=== PATIENT | male | born 1950 | race Caucasian/White ===

== ENCOUNTER 2016-05-31 14:55 | Inpatient (IN) | payer OTHER ==
[2016-05-31 15:27] VITALS: BMI 31.0
[2016-05-31 15:47] LABS: BASOPHIL 0.7 % (0-2.0); EOSINOPHIL 2.3 % (0-4.5); MCHC 30.1 g/dl (32.0-35.9); MEAN CELL VOLUME 65.5 fl (80-96); MEAN PLT VOLUME 8.8 fl (7.5-11.1); NEUTROPHILS 60.8 % (42.8-82.8); PLATELET COUNT 149 K/MM3 (134-434); RDW 21.7 % (11.9-15.9); WHITE BLOOD COUNT 3.3 K/mm3 (4.0-10.0)
--- NOTE | 2016-05-31 15:50 | PDOC ---
History of Present Illness <TiannaAmy - Last Filed: 05/31/16 17:11> <Kavon Kincaid - Last Filed: 06/01/16 08:34> - General Chief Complaint: Chest Pain Stated Complaint: CHEST PAIN Time Seen by Provider: 05/31/16 15:29 - History of Present Illness Initial Comments: 05/31/16 16:48 The patient is a 66 year old male, with a significant past medical history of HIV, hypertension, GI Bleed and duodenitis(10/04/15), who presents to the emergency department with 1 year of intermittent chest pain and lightheadedness with new onset of melena for 1 week. The patient reports his chest pain and lightheadedness is localized to his midsternal region, worse when walking and eating and alleviated when lying still. Pt states he had an valve replacement, but still has the same sypmtoms. The patient also complains of associated bilateral arm pain with his chest pain. The patient states his stool has been very dark, close to black, for about the past week. He denies shortness of breath, headache. He denies fever, chills, nausea, vomit , diarrhea and constipation. He denies dysuria, frequency, urgency and hematuria. Allergies: NKDA Past surgical history: aortic valve replacement (2016) PCP - Dr. Fernández Brick Tender - Dr. Walker (Amy Wynn) Past History <Amy Wynn - Last Filed: 05/31/16 17:11> - Past Medical History Anemia: No Asthma: No Cancer: No Cardiac Disorders: Yes (valve replacement) CVA: No COPD: No CHF: No (Need clariification) Dementia: No Diabetes: No GI Disorders: Yes (tarry stool, + Deuodinitis and one nonbleeding angioectas) Disorders: No HTN: Yes (Pt denies HTN however receiving HTN meds) Hypercholesterolemia: No Liver Disease: No Psychiatric Problems: Yes (ANXIETY DEPRESSION) Seizures: No Thyroid Disease: No - Surgical History Abdominal Surgery: No Appendectomy: No Cardiac Surgery: Yes ([facility] Cardothoracic Surgery - Dr. Reese Garcia MD Aortic Sten) Cholecystectomy: No Lung Surgery: No - Psycho/Social/Smoking Cessation Hx Suicidal Ideation: No Smoking History: Never smoked <Kavon Kincaid - Last Filed: 06/01/16 08:34> - Past Medical History Allergies/Adverse Reactions: Allergies Allergy/AdvReac Type Severity Reaction Status Date / Time No Known Allergies Allergy Verified 05/31/16 15:30 Home Medications: Ambulatory Orders Darunavir/Cobicistat [Prezcobix 800 mg-150 mg Tablet] 1 each PO DAILY #30 tablet 05/18/16 Dolutegravir Sodium [Tivicay] 50 mg PO DAILY #30 tablet 05/18/16 Metoprolol Succinate [Toprol Xl -] 0 mg PO HS 05/31/16 Cardiac Specific PMH - Complaint Specific PMHX Pacemaker: No <Kavon Kincaid - Last Filed: 06/01/16 08:34> Review of Systems - Review of Systems Able to Perform ROS?: Yes <Amy Wynn - Last Filed: 05/31/16 17:11> <Kavon Kincaid - Last Filed: 06/01/16 08:34> - Review of Systems Comments:: 05/31/16 16:48 CONSTITUTIONAL: No reported: Fever, Chills, Diaphoresis, Generalized Weakness, Malaise, Loss of Appetite HEENT: No reported: Rhinorrhea, Nasal Congestion, Throat Pain, Throat Swelling, Difficulty Swallowing, Mouth Swelling, Ear Pain, Eye Pain, Visual Changes CARDIOVASCULAR: (+) Chest Pain, Lightheadedness,No reported:Syncope, Palpitations, Irregular Heart Rate, Peripheral Edema RESPIRATORY: No reported: Cough, Shortness of Breath, SOB with Exertion, Orthopnea, Wheezing , Stridor, Hemoptysis GASTROINTESTINAL: + melena No reported: Abdominal pain, Abdominal Distension, Nausea, Vomiting, Diarrhea, Constipation, Hematochezia GENITOURINARY: No reported: Dysuria, Frequency, Urgency, Hesitancy, Flank Pain, Genital Pain MUSCULOSKELETAL: No reported: Myalgia, Arthralgia, Joint Swelling, Back pain, Neck Pain SKIN: No reported: Rash, Itching, Pallor HEMEATOLOGIC/IMMUNOLOGIC: No reported: Easy Bleeding, Easy Bruising, Lymphadenopathy, Frequent infections ENDOCRINE: No reported: Unexplained Weight Gain, Unexplained Weight Loss, Heat Intolerance , Cold Intolerance NEUROLOGIC: No reported: Headache, Focal Weakness, Paresthesias, Vertigo, Lightheadedness, Unsteady Gait, Seizure, Mental Status Changes, Incontinence PSYCHIATRIC: No reported: Anxiety, Depression (Amy Wynn) *Physical Exam <SheylaAmy gusman - Last Filed: 05/31/16 17:11> <Kavon Kincaid - Last Filed: 06/01/16 08:34> - Vital Signs Last Vital Signs Temp Pulse Resp BP Pulse Ox 98.7 F 68 18 118/63 100 06/01/16 07:11 06/01/16 07:11 06/01/16 07:19 06/01/16 07:11 06/01/16 07:19 - Physical Exam Comments: 05/31/16 16:49 GENERAL: The patient is awake, alert, and fully oriented, Nontoxic - in no acute distress. HEAD: Normocephalic, atraumatic. EYES: extraocular movements intact, sclera anicteric, conjunctiva clear. ENT: Normal voice, Moist mucous membranes. NECK: Normal range of motion, supple LUNGS: Breath sounds equal, clear to auscultation bilaterally. No wheezes, no rhonchi, no rales. HEART: Regular rate and rhythm, without murmur, rub or gallop. ABDOMEN: Soft, nontender, normoactive bowel sounds. No guarding, no rebound.No CVA tenderness RECTAL: minimal browinish stool in vault (did not appear melantoic) EXTREMITIES: Normal range of motion, no edema. No clubbing or cyanosis. No cords, erythema, or tenderness. NEUROLOGICAL: No facial assymetry, Normal speech, PSYCH: Normal mood, normal affect. SKIN: Warm, Dry, normal turgor, (Amy Wynn) Heart Score/ECG Review <SheylaAmy gusman - Last Filed: 05/31/16 17:11> <Kavon Kincaid - Last Filed: 06/01/16 08:34> - ECG Impressions Comment:: 05/31/16 16:18 Twelve-lead EKG was performed and reviewed by me. There is normal sinus rhythm with a normal rate. Rate of 81 LVH with repolarization abnormality When compared with EKG dated 04/05/2016, the flipped T waves in the lateral leads have improved (Kavon Kincaid) ED Treatment Course - LABORATORY CBC & Chemistry Diagram: 05/31/16 15:31 05/31/16 15:31 <Amy Wynn - Last Filed: 05/31/16 17:11> - LABORATORY CBC & Chemistry Diagram: 06/01/16 06:10 06/01/16 06:10 <Kvaon Kincaid - Last Filed: 06/01/16 08:34> - ADDITIONAL ORDERS Additional order review: Laboratory Results 05/31/16 05/31/16 16:10 16:00 Lipase 101 Blood Type O POSITIVE Antibody Screen Negative Crossmatch See Detail 05/31/16 15:31 RBC 3.30 L D MCV 65.5 L MCHC 30.1 L RDW 21.7 H MPV 8.8 D Neutrophils % 60.8 Lymphocytes % 19.3 Monocytes % 16.9 H Eosinophils % 2.3 Basophils % 0.7 - RADIOLOGY Radiology Studies Ordered: Category Date Time Status CHEST X-RAY PORTABLE* [RAD] Stat Radiology 05/31/16 15:31 Completed - Medications Given in the ED: ED Medications Discontinued Medications Generic Name Dose Route Start Last Admin Trade Name Freq PRN Reason Stop Dose Admin Pantoprazole Sodium 80 mg/ 100 mls @ 200 mls/hr 05/31/16 16:11 05/31/16 17:02 Sodium Chloride IVPB 05/31/16 16:40 200 mls/hr ONCE ONE Administration Medical Decision Making <Amy Wynn - Last Filed: 05/31/16 17:11> <Kavon Kincaid - Last Filed: 06/01/16 08:34> - Medical Decision Making 05/31/16 16:28 Dr. Walker was paged requesting a call back for doctor to doctor consult at 16:12 Dr. Fernández was paged at 17:00 and he immediately returned the call and the patient's case was discussed. Dr. Walker returned the call and the patient's case was discussed at 17:08. (Amy Wynn) 05/31/16 16:08 66y M hx of aortic valve replacement, duodinitis/gastritis, sent to the ED for evaluation of chest pain The pt states that he has had chest pain/ lightheadedness for hte past year, worse when he walks around an dwhen he eats but notes that the past week he has hbeen having black stool. pt notes his cp is unchanged from baseline. ?acs, vs GIB possible anemia causing his sypmtoms (would not explain chronicity of his cp/ dizziness) will r/o DC with ekg/troponins pt currently not in any pain, stool is browinish, non melenatic stool sbrown in color - will dfer asa until we know his stool exam when compared with prior ekg frm the clinic (performed at 13:[address]ressions in V3-4-5, pt did state he had cp when they did that ekg) that have resolved/improved. flipped Ts in I, avl remain unchanged. pt has no chest pain ( none since he was in ht eclinic) will notify dr. walker 05/31/16 16:15 pts HBG shows anemia to 6 will transfuse ith 2L PRBC will start pt on protonix A portion of this note was documented by scribe services under my direction. I have reviewed the details of the note, within reason, and agree with the documentation with the following case summary and management plan written by me 05/31/16 16:42 pts Trop is .17 in light of his complaint of melena and new anemia will discuss with dr. Walker prior to heparinizing the patient or giving ASA will also consult GI will admit for further management 05/31/16 17:03 chest pain free currently in no distress 05/31/16 17:16 05/31/16 17:[address] walker - states pt had hx of ekg changes, an din 2014 - had CABG and ao valve replacement with bioprosteic valve, but without improvement of sypmtoms. requests repeta trops, and echo, agree with deferring asa/heparin in light of reported menela - consider primary ACS vs. 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 05/31/16 17:[address] kong agree with transfusion and tprotonix gtt. (Kavon Kincaid) *DC/Admit/Observation/Transfer <Amy Wynn - Last Filed: 05/31/16 17:11> - Discharge Dispostion Admit: Yes <Kavon Kincaid - Last Filed: 06/01/16 08:34> Diagnosis at time of Disposition: HIV (human immunodeficiency virus infection) Chest pain Qualifiers: Chest pain type: unspecified Qualified Code(s): R07.9 - Chest pain, unspecified GIB (gastrointestinal bleeding) Qualifiers: GI bleed type/associated pathology: melena Qualified Code(s): K92.1 - Melena - Attestations Scribe Attestion: 05/31/16 16:29 Documentation prepared by Amy Wynn, acting as emergency medical service manager for Kavon Kincaid MD, MD (Amy Wynn)
[2016-05-31 15:55] LABS: MCH 19.7 pg (25.7-33.7)
[2016-05-31 16:08] LABS: INR 1.05 (0.82-1.09); PROTHROMBIN TIME (PATIENT) 11.6 SEC (9.98-11.88)
[2016-05-31] MEDS ORDERED: PANTOPRAZOLE SODIUM 80 MG in SODIUM CHLORIDE 100 ML IVPB ONE (16:11)
[2016-05-31 16:22] LABS: ALBUMIN 3.2 g/dl (3.4-5.0); ANION GAP 7 (8-16); CALCIUM 8.2 mg/dL (8.5-10.1); CO2 26 mmol/L (21-32); CREATININE 0.8 mg/dL (0.7-1.3); GLUCOSE,RANDOM 106 mg/dL (74-106); SGOT/AST 39 U/L (15-37); SGPT/ALT 65 U/L (12-78)
[2016-05-31 16:26] LABS: ALK PHOS 92 U/L (45-117); BILIRUBIN,TOTAL 0.4 mg/dL (0.2-1.0); TOT PROT 6.3 g/dl (6.4-8.2); TROPONIN I 0.17 ng/ml (0.00-0.05)
[2016-05-31] MEDS ORDERED: PANTOPRAZOLE SODIUM 40 MG VIAL ONE ×2 (17:03→17:40)
--- NOTE | 2016-05-31 17:28 | HP ---
CHIEF COMPLAINT: PCP: Dr. Fernández HISTORY OF PRESENT ILLNESS: The patient is a 66 year old male with a history of HIV/AIDS (last CD4 58), bioprosthetic aortic valve replacement and CABG (2014), HTN, duodenitis and GIB (10/04/15), who presents to the ED today complaining of one week of "black" stools. He is feeling lightheaded when standing. He also notes intermittent chest pain with and dyspnea on exertion for one year, worsening today. He reports having an endoscopy one year ago at [facility] without significant findings. He denies EtOH and NSAID use. ER course was notable for: (1) EKG: NSR, rate of 81, LVH with repolarization abnormality. When compared with EKG dated 04/05/2016, TWI in the lateral leads have improved. (2) H/H: 6.5/21.6 (3) Guaiac positive (4) Troponin elevated at 0.17 Recent Travel: None Social History: Lives alone, not employed, originally from [facility]. Smoking: Quit 10 yrs ago Alcohol: None Drugs: None Family History: Non-contributory to this admission Allergies No Known Allergies Allergy (Verified 05/31/16 15:30) HOME MEDICATIONS: Home Medications Medication Instructions Recorded Darunavir/Cobicistat [Prezcobix 1 each PO DAILY #30 tablet 05/18/16 800 mg-150 mg Tablet] Dolutegravir Sodium [Tivicay] 50 mg PO DAILY #30 tablet 05/18/16 Metoprolol Succinate [Toprol Xl -] 0 mg PO HS 05/31/16 REVIEW OF SYSTEMS CONSTITUTIONAL: Generalized weakness Absent: fever, chills, diaphoresis, weight change HEENT: Absent: rhinorrhea, nasal congestion, throat pain, throat swelling, difficulty swallowing, mouth swelling, ear pain, eye pain, visual changes CARDIOVASCULAR: Intermittent chest pain (currently has some mild pain), dyspnea on exertion, lightheadedness Absent: calf pain or swelling RESPIRATORY: Cough productive of white sputum Absent: orthopnea, wheezing, stridor, hemoptysis GASTROINTESTINAL: "Black" stools for one week Absent: abdominal pain, abdominal distension, nausea, vomiting GENITOURINARY: Absent: dysuria, frequency, urgency, hesitancy, hematuria, flank pain, genital pain MUSCULOSKELETAL: Absent: myalgia, arthralgia, joint swelling, back pain, neck pain SKIN: Absent: rash, itching, pallor HEMATOLOGIC/IMMUNOLOGIC: Absent: easy bleeding, easy bruising, lymphadenopathy, frequent infections ENDOCRINE: Absent: unexplained weight gain, unexplained weight loss, heat intolerance, cold intolerance NEUROLOGIC: Absent: headache, focal weakness or paresthesias, dizziness, unsteady gait, seizure, mental status changes, bladder or bowel incontinence PSYCHIATRIC: Absent: anxiety, depression, suicidal or homicidal ideation, hallucinations. PHYSICAL EXAMINATION Vital Signs - 24 hr 05/31/16 05/31/16 15:22 15:50 Temperature 98.1 F Pulse Rate 84 Respiratory 16 Rate Blood Pressure 126/64 O2 Sat by Pulse 99 98 Oximetry (%) GENERAL: Awake, alert, and fully oriented, in no acute distress. HEAD: Normal with no signs of trauma. EYES: Pupils equal, round and reactive to light, extraocular movements intact, sclera anicteric, conjunctivae pale. No lid lag. EARS, NOSE, THROAT: Ears normal, nares patent, oropharynx clear without exudates. Moist mucous membranes. NECK: Normal range of motion, supple without lymphadenopathy, JVD, or masses. LUNGS: Breath sounds equal, clear to auscultation bilaterally. No wheezes, and no crackles. No accessory muscle use. HEART: Regular rate and rhythm, S1/S2, 4/6 systolic murmur, midline sternotomy scar, no rub or gallop. ABDOMEN: Soft, nontender, not distended, normoactive bowel sounds, no guarding, no rebound, no masses. No hepatomegaly or splenomegaly. MUSCULOSKELETAL: Normal range of motion at all joints. No bony deformities or tenderness. No CVA tenderness. UPPER EXTREMITIES: 2+ pulses, warm, well-perfused. No cyanosis. No clubbing. No peripheral edema. LOWER EXTREMITIES: 2+ pulses, warm, well-perfused. No calf tenderness. No peripheral edema. NEUROLOGICAL: Cranial nerves II-XII intact. Normal speech. Normal gait. PSYCHIATRIC: Cooperative. Good eye contact. Appropriate mood and affect. SKIN: Warm, dry, normal turgor, no rashes or lesions noted, normal capillary refill. Laboratory Results - last 24 hr 05/31/16 05/31/16 05/31/16 15:31 15:31 15:31 WBC 3.3 L RBC 3.30 L D Hgb 6.5 L* D Hct 21.6 L D MCV 65.5 L MCHC 30.1 L RDW 21.7 H Plt Count 149 D MPV 8.8 D Neutrophils % 60.8 Lymphocytes % 19.3 Monocytes % 16.9 H Eosinophils % 2.3 Basophils % 0.7 INR 1.05 Sodium 136 Potassium 4.1 Chloride 103 Carbon Dioxide 26 Anion Gap 7 L BUN 18 Creatinine 0.8 Creat Clearance w eGFR > 60 Random Glucose 106 Calcium 8.2 L Total Bilirubin 0.4 AST 39 H D ALT 65 D Alkaline Phosphatase 92 D Creatine Kinase 93 Troponin I 0.17 H Total Protein 6.3 L Albumin 3.2 L Stool Occult Blood Crossmatch 05/31/16 05/31/16 16:00 16:10 WBC RBC Hgb Hct MCV MCHC RDW Plt Count MPV Neutrophils % Lymphocytes % Monocytes % Eosinophils % Basophils % INR Sodium Potassium Chloride Carbon Dioxide Anion Gap BUN Creatinine Creat Clearance w eGFR Random Glucose Calcium Total Bilirubin AST ALT Alkaline Phosphatase Creatine Kinase Troponin I Total Protein Albumin Stool Occult Blood Positive Crossmatch See Detail ASSESSMENT/PLAN: 66 year old male admitted with GIB and elevated troponins. Problem List - Problem (1) Chest pain Assessment/Plan: -Monitor on telemetry -Serial troponins to rule out IA -Repeat EKG -Echocardiogram -Holding ASA for now given GIB -Cardiology following Code(s): R07.9 - CHEST PAIN, UNSPECIFIED Qualifiers: Chest pain type: unspecified Qualified Code(s): R07.9 - Chest pain, unspecified (2) GIB (gastrointestinal bleeding) Assessment/Plan: -H/H stable after 3hrs prior to transfusion -Transfuse 2 units PRBC now; would transfuse to goal Hgb 10 given active chest pain, elevated troponin -Protonix gtt -NPO -GI consultation requested Code(s): K92.2 - GASTROINTESTINAL HEMORRHAGE, UNSPECIFIED Qualifiers: GI bleed type/associated pathology: melena Qualified Code(s): K92.1 - Melena (3) HTN (hypertension) Assessment/Plan: -BP at goal -Hold Metoprolol for now Code(s): I10 - ESSENTIAL (PRIMARY) HYPERTENSION (4) AIDS Assessment/Plan: -Hold ARVs for now; resume when taking PO Code(s): B20 - HUMAN IMMUNODEFICIENCY VIRUS [HIV] DISEASE (5) DVT prophylaxis Assessment/Plan: -SCDs -Early ambulation Code(s): [id number] - Visit type - Emergency Visit Emergency Visit: Yes ED Registration Date: 05/31/16 Care time: The patient presented to the Emergency Department on the above date and was hospitalized for further evaluation of their emergent condition. - New Patient This patient is new to me today: Yes Date on this admission: 05/31/16 - Critical Care Critical Care patient: Yes Total Critical Care Time (in minutes): 35 Critical Care Statement: The care of this patient involved high complexity decision making to prevent further life threatening deterioration of the patient 's condition and/or to evalute & treat vital organ system(s) failure or risk of failure.
[2016-05-31 17:35] LABS: ANISOCYTOSIS 2+; HYPOCHROMIA 3+; MICROCYTOSIS 2+; OVALOCYTES 1+; POLYCHROMASIA 1+
--- NOTE | 2016-05-31 17:41 | CON.CARD ---
Consult Consult Specialty:: cardiology Reason for Consultation:: chest pain; hx CABG - History of Present Illness History of Present Illness: The patient is a 66 year old male, with a significant past medical history of HIV, s/p bioprosthetic aortic valve and CABG (05/2015 at [facility]), hypertension, GI Bleed and duodenitis(10/04/15), anxiety/depression, who presents to the emergency department with 1 year of intermittent chest pain and lightheadedness with new onset of melena for 1 week. The patient reports his chest pain (needle-like, left sided, at rest, lasting a few seconds) and lightheadedness is localized to his midsternal region, worse when walking and eating and alleviated when lying still. Pt states he had a valve replacement, but still has the same symptoms. The patient also complains of associated bilateral arm pain with his chest pain. The patient states his stool has been very dark, close to black, for about the past week. Pt is anxious that, since the cardiac operation, he has felt something "moving in the central chest wall (not painful). - History Source History Provided By: Patient, Medical Record Limitations to Obtaining History: No Limitations - Past Medical History Cardio/Vascular: Yes: CAD, CHF, HTN, Hyperlipdemia, Other (aortic vavle replacement) Infectious Disease: Yes: HIV - Past Surgical History Past Surgical History: Yes: CABG, Valve Replacement (aortic (bioprosthetic)) - Smoking History Smoking history: Never smoked Home Medications - Allergies Allergies/Adverse Reactions: Allergies Allergy/AdvReac Type Severity Reaction Status Date / Time No Known Allergies Allergy Verified 05/31/16 15:30 - Home Medications Home Medications: Ambulatory Orders Darunavir/Cobicistat [Prezcobix 800 mg-150 mg Tablet] 1 each PO DAILY #30 tablet 05/18/16 Dolutegravir Sodium [Tivicay] 50 mg PO DAILY #30 tablet 05/18/16 Metoprolol Succinate [Toprol Xl -] 0 mg PO HS 05/31/16 - Risk Factors Known Risk Factors: Yes: Age, Gender, Hypercholesterolemia, Hypertension, Other (s/p CABG; s/p AoVR; HIV) Vital Signs: Vital Signs Temperature 98.1 F 05/31/16 15:22 Pulse Rate 84 05/31/16 15:22 Respiratory Rate 16 05/31/16 15:22 Blood Pressure 126/64 05/31/16 15:22 O2 Sat by Pulse Oximetry (%) 98 05/31/16 15:50 Constitutional: Yes: Anxious, Moderate Distress Eyes: Yes: WNL HENT: Yes: WNL Neck: Yes: WNL Respiratory: Yes: Regular Gastrointestinal: Yes: Soft. No: Tenderness Cardiovascular: Yes: Regular Rate and Rhythm JVD: No Carotid Bruit: No Musculoskeletal: Yes: Other (slight movemtn felt (nontender) when right parasternal area is pressed) Extremities: Yes: Cool Edema: No Peripheral Pulses WNL: Yes Integumentary: Yes: WNL Neurological: Yes: Alert, Oriented Psychiatric: Yes: Alert, Oriented, Other - Other Data Labs, Other Data: CBC, BMP 05/31/16 15:31 05/31/16 15:31 INR, PTT INR 1.05 (0.82-1.09) 05/31/16 15:31 Troponin, BNP 05/31/16 15:31 Troponin I 0.17 H Troponin, BNP 05/31/16 15:31 Troponin I 0.17 H Abnormal Lab Results 05/31/16 05/31/16 05/31/16 15:31 15:31 16:00 WBC 3.3 L RBC 3.30 L D Hgb 6.5 L* D Hct 21.6 L D MCV 65.5 L MCHC 30.1 L RDW 21.7 H Monocytes % 16.9 H Anion Gap 7 L Calcium 8.2 L AST 39 H D Troponin I 0.17 H Total Protein 6.3 L Albumin 3.2 L Crossmatch See Detail Prior Cardiac Procedures: CABG, Valve Surgery Imaging - Results Chest X-ray: Pending EKG: Image Reviewed (NSR; lateral wall ST-T depression) Problem List - Problems (1) Chest pain Assessment/Plan: TNI 0.17 (likely demand ischemia from severe anemia); CK WNL. EKG: NSR; ?new lateral ST-T changes. Rec: Unable to give antiplatelets or anticoagulants presently due to severe anemia and evidence of melena. Statin; f/u lipids. TSH Repeat TNI and EKG within two hours of the last ones taken. Hydration; f/u anemia/GI workup. Problematic giving beta blockers or ACEI due to severe anemia. ECHO for LVEF, wall motion, valve status (particularly replaced aortic valve). obtain records of prior cardiac workup. F/u chest wall movement (CXR; consider CT chest). Code(s): R07.9 - CHEST PAIN, UNSPECIFIED Qualifiers: Chest pain type: unspecified Qualified Code(s): R07.9 - Chest pain, unspecified (2) FH: CABG (coronary artery bypass surgery) Code(s): Z84.89 - FAMILY HISTORY OF OTHER SPECIFIED CONDITIONS (3) GIB (gastrointestinal bleeding) Assessment/Plan: f/u with GI regarding anemia, ?GI bleed, hx gastric disease Code(s): K92.2 - GASTROINTESTINAL HEMORRHAGE, UNSPECIFIED Qualifiers: GI bleed type/associated pathology: melena Qualified Code(s): K92.1 - Melena (4) Anemia Code(s): D64.9 - ANEMIA, UNSPECIFIED (5) HIV (human immunodeficiency virus infection) Assessment/Plan: f/u with Dr. Fernández. ECHO for LVEF; chamber sizes, vavle status. Code(s): Z21 - ASYMPTOMATIC HUMAN IMMUNODEFICIENCY VIRUS INFECTION STATUS (6) HTN (hypertension) Code(s): I10 - ESSENTIAL (PRIMARY) HYPERTENSION (7) Aortic valve replaced Code(s): Z95.2 - PRESENCE OF PROSTHETIC HEART VALVE
[2016-05-31] MEDS: PANTOPRAZOLE SODIUM 80 MG in SODIUM CHLORIDE 100 ML IVPB SCH (17:54)
[2016-05-31 18:33] LABS: BASOPHIL 0.6 % (0-2.0); EOSINOPHIL 2.9 % (0-4.5); MCHC 29.7 g/dl (32.0-35.9); MEAN CELL VOLUME 66.2 fl (80-96); MEAN PLT VOLUME 9.1 fl (7.5-11.1); PLATELET COUNT 141 K/MM3 (134-434); RDW 22.1 % (11.9-15.9); WHITE BLOOD COUNT 2.9 K/mm3 (4.0-10.0)
[2016-05-31 18:36] LABS: MCH 19.7 pg (25.7-33.7)
[2016-05-31 19:01] LABS: TROPONIN I 0.19 ng/ml (0.00-0.05)
--- NOTE | 2016-05-31 20:13 | CON.GI ---
Consult Consult Specialty:: GI Referred by:: Hospitalist Reason for Consultation:: anemia/GIB - History of Present Illness Chief Complaint: Symptomatic anemia and ongoing black stool History of Present Illness: 66 M with h/o HIV with low CD4, CABG and AVR 1 year ago at [place], HTN, GIB and duodenitis, admitted with 5 days of dark stool and a Hgb of 6.5. Patient states he has had this problem for a long time and has had an extensive work-up including 2 capsule endoscopies, Balloon endoscopy with total small bowel visualization and multiple endoscopies and colonoscopies, many done at [facility], and [facility]. All studies negative except for 1 which was done as an opt and at which time bleeding was noted, but no9 intervention done due to opt status-he was takei by ambulance to the hospital at which time the bleeding had stopped. - History Source History Provided By: Patient, Medical Record Limitations to Obtaining History: No Limitations - Past Medical History Cardio/Vascular: Yes: HTN, Hyperlipdemia Infectious Disease: Yes: HIV - Past Surgical History Past Surgical History: Yes: CABG, Valve Replacement (aortic (bioprosthetic)) - Smoking History Smoking history: Never smoked Home Medications - Allergies Allergies/Adverse Reactions: Allergies Allergy/AdvReac Type Severity Reaction Status Date / Time No Known Allergies Allergy Verified 05/31/16 15:30 - Home Medications Home Medications: Ambulatory Orders Darunavir/Cobicistat [Prezcobix 800 mg-150 mg Tablet] 1 each PO DAILY #30 tablet 05/18/16 Dolutegravir Sodium [Tivicay] 50 mg PO DAILY #30 tablet 05/18/16 Metoprolol Succinate [Toprol Xl -] 0 mg PO HS 05/31/16 Physical Exam-GI Vital Signs: Vital Signs Temperature 98 F 05/31/16 19:24 Pulse Rate 67 05/31/16 19:24 Respiratory Rate 18 05/31/16 19:24 Blood Pressure 122/57 05/31/16 19:24 O2 Sat by Pulse Oximetry (%) 100 05/31/16 19:24 Constitutional: Yes: Well Nourished, No Distress HENT: Yes: Normocephalic Neck: Yes: Supple Cardiovascular: Yes: Regular Rate and Rhythm Respiratory: Yes: CTA Bilaterally Gastrointestinal Inspection: Yes: WNL ...Auscultate: Yes: Normoactive Bowel Sounds ...Palpate: Yes: Soft. No: Tenderness Neurological: Yes: WNL Labs: CBC, BMP 05/31/16 18:23 INR, PTT INR 1.05 (0.82-1.09) 05/31/16 15:31 Assessment/Plan 66 M with above history admitted with symptomatic anemia and guaiac (+) stool. BUN does not support UGIB but patient with self-described black stools suggests UGI source. History of extensive w/u suggests small vascular lesion ie: Dieulafoy Rec: Protonix drip NPO Transfuse to HGB of 9 For EGD/push enteroscopy tomorrow, time to be arranged, barring unforeseen circumstances Follow TNI -likely elevated secondary to demand ischemia
[2016-05-31] MEDS: METOPROLOL SUCCINATE 50 MG TAB.SR.24H (FP) PO SCH (21:06)
[2016-05-31 21:55] LABS: TROPONIN I 0.24 ng/ml (0.00-0.05)
[2016-06-01] MEDS: PANTOPRAZOLE SODIUM 80 MG in SODIUM CHLORIDE 100 ML IVPB SCH ×3 (01:53→22:39)
[2016-06-01 06:26] LABS: BASOPHIL 0.5 % (0-2.0); MCH 21.7 pg (25.7-33.7); MCHC 31.1 g/dl (32.0-35.9); MEAN CELL VOLUME 69.6 fl (80-96); MEAN PLT VOLUME 9.5 fl (7.5-11.1); PLATELET COUNT 142 K/MM3 (134-434); WHITE BLOOD COUNT 3.7 K/mm3 (4.0-10.0)
[2016-06-01 06:47] LABS: ALBUMIN 3.2 g/dl (3.4-5.0); ANION GAP 7 (8-16); BILIRUBIN,TOTAL 1.1 mg/dL (0.2-1.0); CALCIUM 8.2 mg/dL (8.5-10.1); CO2 26 mmol/L (21-32); CREATININE 0.9 mg/dL (0.7-1.3); GLUCOSE,RANDOM 88 mg/dL (74-106); SGOT/AST 49 U/L (15-37); SGPT/ALT 73 U/L (12-78); TOT PROT 6.4 g/dl (6.4-8.2)
[2016-06-01 06:50] LABS: ALK PHOS 91 U/L (45-117); TROPONIN I 0.17 ng/ml (0.00-0.05)
[2016-06-01 06:56] LABS: PLATELET COMMENT2 NO CLOTTING DETECTED; PLATELET ESTIMATE SLT DECREASED (NORMAL)
[2016-06-01 06:57] LABS: ANISOCYTOSIS 3+; HYPOCHROMIA 2+; MICROCYTOSIS 1+; OVALOCYTES 1+; POIKILOCYTOSIS 22; POLYCHROMASIA 2+; SPHEROCYTE 1+
--- NOTE | 2016-06-01 09:23 | PN ---
Progress Note, Physician Chief Complaint: Pt A&Ox3; anxious; worries about "movement" around and under sternum; has questions about his medications, and says "I read too much and maybe get confused about the effects of the medications". History of Present Illness: The patient is a 66 year old male, with a significant past medical history of HIV, s/p bioprosthetic aortic valve and CABG (05/2015 at [facility]), hypertension, GI Bleed and duodenitis(10/04/15), anxiety/depression, who presents to the emergency department with 1 year of intermittent chest pain and lightheadedness with new onset of melena for 1 week. The patient reports his chest pain (needle-like, left sided, at rest, lasting a few seconds) and lightheadedness is localized to his midsternal region, worse when walking and eating and alleviated when lying still. Pt states he had a valve replacement, but still has the same symptoms. The patient also complains of associated bilateral arm pain with his chest pain. The patient states his stool has been very dark, close to black, for about the past week. Pt is anxious that, since the cardiac operation, he has felt something "moving in the central chest wall (not painful). - Current Medication List Current Medications: Active Medications Pantoprazole Sodium 80 mg/ (Sodium Chloride) 100 mls @ 10 mls/hr IVPB Q10H [facility] PRN Reason: 8 MG/HR Last Admin: 06/01/16 01:53 Dose: 10 mls/hr Metoprolol Succinate (Toprol Xl -) 50 mg PO [facility] Last Admin: 05/31/16 21:06 Dose: 50 mg - Objective Vital Signs: Vital Signs Temperature 98.7 F 06/01/16 07:11 Pulse Rate 68 06/01/16 07:11 Respiratory Rate 18 06/01/16 07:19 Blood Pressure 118/63 06/01/16 07:11 O2 Sat by Pulse Oximetry (%) 100 06/01/16 07:19 Constitutional: Yes: Anxious, Moderate Distress Eyes: Yes: WNL HENT: Yes: WNL Neck: Yes: WNL Cardiovascular: Yes: Regular Rate and Rhythm Respiratory: Yes: Regular Gastrointestinal: Yes: Soft ...Rectal Exam: Yes: Deferred Genitourinary: No: Anuria Breast(s): Yes: WNL Extremities: Yes: WNL Edema: No Peripheral Pulses WNL: Yes Integumentary: Yes: WNL Neurological: Yes: Alert, Oriented Psychiatric: Yes: Alert, Oriented Labs: CBC, BMP 06/01/16 06:10 06/01/16 06:10 INR, PTT INR 1.05 (0.82-1.09) 05/31/16 15:31 Problem List - Problems (1) Chest pain Assessment/Plan: TNI 0.17-->0.18-->0.24-->0.18 (likely demand ischemia from severe anemia); CK WNL. EKG: NSR; ?new lateral ST-T changes. Rec: Unable to give antiplatelets or anticoagulants presently due to severe anemia and evidence of melena. Statin; f/u lipids. TSH 0.92 (03/2016). Hydration; f/u anemia/GI workup. PRBCs per hemtologist. Problematic giving beta blockers or ACEI due to severe anemia. ECHO for LVEF, wall motion, valve status (particularly replaced aortic valve). obtain records of prior cardiac workup. F/u chest wall movement (CXR; consider CT chest; f/u with CT surgeon). Code(s): R07.9 - CHEST PAIN, UNSPECIFIED Qualifiers: Chest pain type: unspecified Qualified Code(s): R07.9 - Chest pain, unspecified (2) FH: CABG (coronary artery bypass surgery) Code(s): Z84.89 - FAMILY HISTORY OF OTHER SPECIFIED CONDITIONS (3) GIB (gastrointestinal bleeding) Assessment/Plan: f/u with GI regarding anemia, ?GI bleed, hx gastric disease Code(s): K92.2 - GASTROINTESTINAL HEMORRHAGE, UNSPECIFIED Qualifiers: GI bleed type/associated pathology: melena Qualified Code(s): K92.1 - Melena (4) Anemia Code(s): D64.9 - ANEMIA, UNSPECIFIED (5) HIV (human immunodeficiency virus infection) Code(s): Z21 - ASYMPTOMATIC HUMAN IMMUNODEFICIENCY VIRUS INFECTION STATUS (6) HTN (hypertension) Code(s): I10 - ESSENTIAL (PRIMARY) HYPERTENSION (7) Aortic valve replaced Code(s): Z95.2 - PRESENCE OF PROSTHETIC HEART VALVE
--- NOTE | 2016-06-01 09:42 | EKG ---
Test Reason : Blood Pressure : / mmHG Vent. Rate : 081 BPM Atrial Rate : 081 BPM P-R Int : 180 ms QRS Dur : 092 ms QT Int : 398 ms P-R-T Axes : 056 -09 104 degrees QTc Int : 462 ms NORMAL SINUS RHYTHM LEFT VENTRICULAR HYPERTROPHY WITH REPOLARIZATION ABNORMALITY NONSPECIFIC ST ABNORMALITY Confirmed by GEENA SANTOS MD ([id number]) on 06/01/2016 9:42:06 AM Referred By: Confirmed By:GEENA SANTOS MD
[2016-06-01] MEDS ORDERED: PATIENT'S OWN MEDICATION (NON-FORMULARY) (Darunavir/Cobicistat [Prezcobix 800 Mg-150 Mg Ta PO SCH (10:00)
[2016-06-01] MEDS ORDERED: PATIENT'S OWN MEDICATION (NON-FORMULARY) (Dolutegravir Sodium 50 MG) PO SCH (10:00)
--- NOTE | 2016-06-01 14:07 | PN ---
<Juan Gar - Last Filed: 06/01/16 18:36> Physical Exam: ATTENDING PHYSICIAN STATEMENT I saw and evaluated the patient. I reviewed the resident's note and discussed the case with the resident. I agree with the resident's findings and plan as documented. SUBJECTIVE: seen and evaluated at the bedside OBJECTIVE: resting comfortably in no distress ASSESSMENT AND PLAN: 6 year old male with a history of HIV/AIDS (last CD4 58), bioprosthetic aortic valve replacement and CABG (2014), HTN, duodenitis and GIB admitted for acute blood loss anemia due to upper GI bleed -pt has had numerous GI bleeds in the past -had melena x 1 week and was found to have Hb of 6 which increased to 8 after 2 units pRBC -follow up GI consult for endoscopy -mild elevation in trop likely due to demand ischemia from anemia and not from acute coronary syndrome <Jesus Hinton - Last Filed: 06/02/16 11:41> Physical Exam: SUBJECTIVE: Patient seen and examined Pt is aaox3 no s/s of distress no chest or sob no palpitation no dizziness or weakness OBJECTIVE: Vital Signs Period Temp Pulse Resp BP Sys/Meza Pulse Ox Last 24 Hr 97.6 F-98.7 F 64-81 18-19 112-126/57-70 98-100 GENERAL: The patient is awake, alert, and fully oriented, in no acute distress. HEAD: Normal with no signs of trauma. EYES: PERRL, extraocular movements intact, sclera anicteric, conjunctiva clear. No ptosis. ENT: Ears normal, nares patent, oropharynx clear without exudates, moist mucous membranes. NECK: Trachea midline, full range of motion, supple. LUNGS: Breath sounds equal, clear to auscultation bilaterally, no wheezes, no crackles, no accessory muscle use. HEART: Regular rate and rhythm, S1, S2 with systolic murmur, rub or gallop. ABDOMEN: Soft, nontender, nondistended, normoactive bowel sounds, no guarding, no rebound, no hepatosplenomegaly, no masses. EXTREMITIES: 2+ pulses, warm, well-perfused, no edema. NEUROLOGICAL: . Normal speech, gait not observed. PSYCH: Normal mood, normal affect. SKIN: Warm, dry, normal turgor, no rashes or lesions noted Laboratory Results - last 24 hr 05/31/16 05/31/16 05/31/16 17:28 17:33 18:23 WBC 2.9 L RBC 3.26 L Hgb 6.4 L* Hct 21.6 L MCV 66.2 L MCHC 29.7 L RDW 22.1 H Plt Count 141 MPV 9.1 Neutrophils % 62.0 Lymphocytes % 19.0 Monocytes % 15.5 H Eosinophils % 2.9 Basophils % 0.6 Differential Comment Platelet Estimate Platelet Comment Polychromasia Hypochromic-Microcytic Poikilocytosis Anisocytosis Microcytosis Macrocytosis Spherocytes Ovalocytes Sodium Potassium Chloride Carbon Dioxide Anion Gap BUN Creatinine Creat Clearance w eGFR Random Glucose Calcium Total Bilirubin AST ALT Alkaline Phosphatase Creatine Kinase 83 Troponin I 0.19 H Total Protein Albumin Blood Type O POSITIVE Antibody Screen Cancelled Spec Expiration Date Cancelled 05/31/16 06/01/16 06/01/16 20:45 04:10 06:10 WBC 3.7 L RBC 3.93 L D Hgb 8.5 L D Hct 27.3 L D MCV 69.6 L MCHC 31.1 L RDW 25.0 H D Plt Count 142 MPV 9.5 Neutrophils % 62.0 Lymphocytes % 18.7 Monocytes % 15.8 H Eosinophils % 3.0 Basophils % 0.5 Differential Comment Slide scanned Platelet Estimate Slt decreased Platelet Comment No clotting detected Polychromasia 2+ Hypochromic-Microcytic 2+ Poikilocytosis 22 Anisocytosis 3+ Microcytosis 1+ Macrocytosis 1+ Spherocytes 1+ Ovalocytes 1+ Sodium Potassium Chloride Carbon Dioxide Anion Gap BUN Creatinine Creat Clearance w eGFR Random Glucose Calcium Total Bilirubin AST ALT Alkaline Phosphatase Creatine Kinase 80 Troponin I 0.24 H 0.18 H Total Protein Albumin Blood Type Antibody Screen Spec Expiration Date 06/01/16 06:10 WBC RBC Hgb Hct MCV MCHC RDW Plt Count MPV Neutrophils % Lymphocytes % Monocytes % Eosinophils % Basophils % Differential Comment Platelet Estimate Platelet Comment Polychromasia Hypochromic-Microcytic Poikilocytosis Anisocytosis Microcytosis Macrocytosis Spherocytes Ovalocytes Sodium 139 Potassium 4.4 Chloride 106 Carbon Dioxide 26 Anion Gap 7 L BUN 15 Creatinine 0.9 Creat Clearance w eGFR > 60 Random Glucose 88 Calcium 8.2 L Total Bilirubin 1.1 H D AST 49 H D ALT 73 Alkaline Phosphatase 91 Creatine Kinase 77 Troponin I 0.17 H Total Protein 6.4 Albumin 3.2 L Blood Type Antibody Screen Spec Expiration Date Active Medications Generic Name Dose Route Start Last Admin Trade Name Uzma PRN Reason Stop Dose Admin Pantoprazole Sodium 80 mg/ 100 mls @ 10 mls/hr 05/31/16 16:15 06/01/16 11:40 Sodium Chloride IVPB 10 mls/hr Q10H SARAI Administration 8 MG/HR Metoprolol Succinate 50 mg 05/31/16 22:00 05/31/16 21:06 Toprol Xl - PO 50 mg HS SARAI Administration CBC, BMP 06/01/16 06:10 06/01/16 06:10 ASSESSMENT/PLAN 66 year old male wth PMH HIV/AIDS, HTN, Duodenitis, Reccurrent GI bleed, Resent to the ED for Melena for 1 week. Was found to have acute GI bleed with hgb of 6 which improved to 8.5 after 2 units of PRBCs GI bleed, likely Upper, r/o Dieulafoy lesion Multiple prior Gi workup for bleed including egd, colonoscopy, capsule endoscopy , balloon endoscopy without clear identification of bleeding source Pt with melena NPO continue PPI IV fluid while NPO Elevated troponins likely rt to demand ischemia Troponins trending down EGD with Push enteroscopy GI on case Dr ghislaine Bach done, pending reading cardiology on case Angina/chronic chest pain Deffer treatment when no longer bleeding Consider ASA, nitro sublingual, Ranexa, ACEContinue Toprol XL 50 po Qd Cardiology on the case HTN Controlled on Toprol XL AIDS HAART Meds held resume when no longer NPO may have to take own meds. DVT prophylaxis: SCD Disposition: keep on floor pending EDG with push enteroscopy for bleeding eval. Visit type - Emergency Visit Emergency Visit: Yes ED Registration Date: 05/31/16 Care time: The patient presented to the Emergency Department on the above date and was hospitalized for further evaluation of their emergent condition. - New Patient This patient is new to me today: Yes Date on this admission: 06/02/16 - Critical Care Critical Care patient: No - Discharge Referral Referred to [facility] Med P.C.: No
[2016-06-01] MEDS ORDERED: PROPOFOL 40 ML ONE (15:11)
--- NOTE | 2016-06-01 17:10 | PN ---
Progress Note (short form) - Note Progress Note: ADDENDUM: S/P push-enteroscopy. Scope passed to 160 cm No bleeding noted. Yellow bile with no trace of blood Imp: Small bowel bleed Rec: Patient advised to go to a tertiary care center at the first sign of new bleeding and have angio with embolization done. The only way this lesion will be found is if the patient presents with active bleeding.
[2016-06-01] MEDS: METOPROLOL SUCCINATE 50 MG TAB.SR.24H (FP) PO SCH (21:00)
[2016-06-02 07:05] LABS: MCH 21.4 pg (25.7-33.7); MCHC 30.4 g/dl (32.0-35.9); MEAN CELL VOLUME 70.3 fl (80-96); MEAN PLT VOLUME 9.3 fl (7.5-11.1); PLATELET COUNT 119 K/MM3 (134-434); RDW 25.2 % (11.9-15.9); WHITE BLOOD COUNT 3.2 K/mm3 (4.0-10.0)
[2016-06-02 09:07] LABS: TROPONIN I 0.11 ng/ml (0.00-0.05)
[2016-06-02 10:01] VITALS: BP 106/59; PULSE 69; TEMP 98.5
--- NOTE | 2016-06-02 10:36 | PN ---
Progress Note, Physician History of Present Illness: seen and examined today in [facility]. no overnight events. no new complaints. - Current Medication List Current Medications: Active Medications Pantoprazole Sodium 80 mg/ (Sodium Chloride) 100 mls @ 10 mls/hr IVPB Q10H [facility] PRN Reason: 8 MG/HR Last Admin: 06/01/16 22:39 Dose: 10 mls/hr Metoprolol Succinate (Toprol Xl -) 50 mg PO HS [facility] Last Admin: 06/01/16 21:00 Dose: 50 mg Prezcobix 800/150 Patient's Own Medication (Non- Formulary) 1 each PO DAILY@ 1730 SARAI Dolutegravir 50mg Patient's Own Medication (Non- Formulary) 1 each PO DAILY@ 1730 SARAI - Objective Vital Signs: Vital Signs Temperature 98.5 F 06/02/16 09:20 Pulse Rate 69 06/02/16 09:20 Respiratory Rate 18 06/02/16 09:20 Blood Pressure 106/59 06/02/16 09:20 O2 Sat by Pulse Oximetry (%) 94 L 06/01/16 21:00 Constitutional: Yes: No Distress, Calm Eyes: Yes: Conjunctiva Clear, EOM Intact, PERRL HENT: Yes: Atraumatic, Normocephalic Neck: Yes: Supple, Trachea Midline Cardiovascular: Yes: Regular Rate and Rhythm, Murmur, S1, S2. No: Bradycardia, Tachycardia, Pulse Irregular, Bruit, JVD, Gallop, Rub, S3, S4, Varicosities Respiratory: Yes: Regular, CTA Bilaterally. No: Rales, Rhonchi, Wheezes Gastrointestinal: Yes: Normal Bowel Sounds, Soft. No: Distention, Tenderness Musculoskeletal: Yes: WNL Extremities: Yes: WNL Edema: No Peripheral Pulses WNL: Yes Peripheral Pulses: Left Doralis Pedis: 2+, Right Dorsalis Pedis: 2+ Integumentary: Yes: WNL Neurological: Yes: Alert, Oriented Psychiatric: Yes: Alert, Oriented Labs: CBC, BMP 06/02/16 05:20 06/01/16 06:10 INR, PTT INR 1.05 (0.82-1.09) 05/31/16 15:31 - ....Imaging Chest X-ray: Report Reviewed, Image Reviewed EKG: Report Reviewed, Image Reviewed Other: Report Reviewed, Image Reviewed (tele-nsr, occ blocked apc) Assessment/Plan Chest pain-with mild troponin elevation -presumed to be demand ischemia secondary to anemia -echo showed normal LV systolic function, bio AVR with mean grad 27mmHg -no events on telemetry -not given anti-platelets due to anemia -cont toprol -start statin if no contraindication HTN-well controlled -cont toprol h/o bio AVR -mean grad 27mmHg on echo -currently stable
--- NOTE | 2016-06-02 11:43 | DS ---
Physical Exam: SUBJECTIVE: Patient seen and examined Pt is feeling well No more black stool No fatigue, no dizziness No palpitation, no chest or shortness of breath OBJECTIVE: Vital Signs Period Temp Pulse Resp BP Sys/Meza Pulse Ox Last 24 Hr 97.4 F-98.5 F 60-76 16-21 106-125/58-68 94-99 PHYSICAL EXAM GENERAL: The patient is awake, alert, and fully oriented, in no acute distress. HEAD: Normal with no signs of trauma. EYES: PERRL, extraocular movements intact, sclera anicteric, conjunctiva clear. No ptosis. ENT: Ears normal, nares patent, oropharynx clear without exudates, [place] moist mucous membranes. NECK: Trachea midline, full range of motion, supple. LUNGS: Breath sounds equal, clear to auscultation bilaterally, no wheezes, no crackles, no accessory muscle use. HEART: Regular rate and rhythm, S1, S2 with systolic murmur, rub or gallop. ABDOMEN: Soft, nontender, nondistended, normoactive bowel sounds, no guarding, no rebound, no hepatosplenomegaly, no masses. EXTREMITIES: 2+ pulses, warm, well-perfused, no edema. NEUROLOGICAL: Normal speech, gait not observed. PSYCH: Normal mood, normal affect. SKIN: Warm, dry, normal turgor, no rashes or lesions noted LABS Laboratory Results - last 24 hr 06/02/16 06/02/16 05:20 05:20 WBC 3.2 L RBC 4.09 Hgb 8.8 L Hct 28.8 L MCV 70.3 L MCHC 30.4 L RDW 25.2 H Plt Count 119 L MPV 9.3 Creatine Kinase 149 Troponin I 0.11 H D CBC WBC 3.2 K/mm3 (4.0-10.0) L 06/02/16 05:20 RBC 4.09 M/mm3 (4.00-5.60) 06/02/16 05:20 Hgb 8.8 GM/dL (11.7-16.9) L 06/02/16 05:20 Hct 28.8 % (35.4-49) L 06/02/16 05:20 MCV 70.3 fl (80-96) L 06/02/16 05:20 MCHC 30.4 g/dl (32.0-35.9) L 06/02/16 05:20 RDW 25.2 % (11.9-15.9) H 06/02/16 05:20 Plt Count 119 K/MM3 (134-434) L 06/02/16 05:20 MPV 9.3 fl (7.5-11.1) 06/02/16 05:20 Neutrophils % 62.0 % (42.8-82.8) 06/01/16 06:10 Lymphocytes % 18.7 % (8-40) 06/01/16 06:10 Monocytes % 15.8 % (3.8-10.2) H 06/01/16 06:10 Eosinophils % 3.0 % (0-4.5) 06/01/16 06:10 Basophils % 0.5 % (0-2.0) 06/01/16 06:10 Differential Comment Slide scanned 06/01/16 06:10 Platelet Estimate Slt decreased (NORMAL) 06/01/16 06:10 Platelet Comment No clumping noted 06/01/16 06:10 Platelet Comment No clotting detected 06/01/16 06:10 RBC Morphology 05/31/16 15:31 Polychromasia 2+ 06/01/16 06:10 Hypochromic-Microcytic 2+ 06/01/16 06:10 Poikilocytosis 22 06/01/16 06:10 Anisocytosis 3+ 06/01/16 06:10 Microcytosis 1+ 06/01/16 06:10 Macrocytosis 1+ 06/01/16 06:10 Spherocytes 1+ 06/01/16 06:10 Ovalocytes 1+ 06/01/16 06:10 HOSPITAL COURSE: Date of Admission:05/31/16 The patient is a 66 year old male with a history of HIV/AIDS (last CD4 58), bioprosthetic aortic valve replacement and CABG (2014), HTN, duodenitis and GIB (10/04/15), who presents to the ED today complaining of one week of "black" stools. He is feeling lightheaded when standing. He also notes intermittent chest pain with and dyspnea on exertion for one year, worsening today. He reports having an endoscopy one year ago at [facility] without significant findings. He denies EtOH and NSAID use. ER course was notable for: (1) EKG: NSR, rate of 81, LVH with repolarization abnormality. When compared with EKG dated 04/05/2016, TWI in the lateral leads have improved. (2) H/H: 6.5/21.6 (3) Guaiac positive (4) Troponin elevated at 0.17 66 year old male [facility] HIV/AIDS, HTN, Duodenitis, Reccurrent GI bleed, present to the ED for Melena for 1 week. Was found to have acute GI bleed, likely upper, with hgb of 6 which improved to 8.5 after 2 units of PRBCs. Pt has had Multiple prior Gi workup for bleed including egd, colonoscopy, capsule endoscopy, balloon endoscopy without clear identification of bleeding source in the past. This time he presented with with melena for one week. Pt was placed on NPO, PPI IV with IV fluid. Pt had EGD with PUsh enteroscopy with no identified source of bleeding by Dr Stevens. Dr Stevens believe this bleeding can only be identified if patient comes in when actively bleeding, and pt may need angiography. Pt has some Elevated troponins which likely rt to demand ischemia. The Troponins trending down. Echo was done, it showed mild LV hypertopthy, LV systolic function normal, RV with normal size and function, RVSP 30-40 mmhg, bioprosthetic valve, mean aortic valve 27mmhg, moderate pulm valve regurg, mildly dilated ascending aorta. Cardiology was on the case Dr Walker. Pt has a h/o of CABG, Aortic valve bioprosthetic Angina/chronic chest pain. Avoid Aspirin and antiplatelet. Continue Toprol XL 50mg po Qd. Follow up with Dr Walker. Pt has h/o HTN Controlled on Toprol XL. Pt has HIV, continue HAART Meds. Follow up with GI, Dr Pardo in one week Follow with Dr Walker, cardiology Follow up with PCP Date of Discharge: 06/02/16 Minutes to complete discharge: 35 <Jesus Hinton - Last Filed: 06/02/16 11:46> Physical Exam: ATTENDING PHYSICIAN STATEMENT I saw and evaluated the patient. I reviewed the resident's note and discussed the case with the resident. I agree with the resident's findings and plan as documented. SUBJECTIVE: seen and evaluated at the bedside OBJECTIVE: resting comfortably in no distress ASSESSMENT AND PLAN: 6 year old male with a history of HIV/AIDS (last CD4 58), bioprosthetic aortic valve replacement and CABG (2014), HTN, duodenitis and GIB admitted for acute blood loss anemia due to upper GI bleed -pt has had numerous GI bleeds in the past -had melena x 1 week and was found to have Hb of 6 which increased to 8 after 2 units pRBC -endoscopy showed no active bleeding -mild elevation in trop likely due to demand ischemia from anemia and not from acute coronary syndrome -for discharge today -pt instructed to hold off on taking ASA until he sees his private chimney mechanic early this coming week <Jaun Gar - Last Filed: 06/02/16 12:54> Discharge Summary Reason For Visit: ANEMIA; HIV; CHEST PAIN Current Active Problems Aortic valve replaced (Acute) Chest pain (Acute) DVT prophylaxis (Acute) FH: CABG (coronary artery bypass surgery) (Acute) GIB (gastrointestinal bleeding) (Acute) H/O aortic valve repair (Acute) Anemia (Chronic) HIV (human immunodeficiency virus infection) (Chronic) HTN (hypertension) (Chronic) - Home Medications Comprehensive Discharge Medication List: Ambulatory Orders Darunavir/Cobicistat [Prezcobix 800 mg-150 mg Tablet] 1 each PO DAILY #30 tablet 05/18/16 Dolutegravir Sodium [Tivicay] 50 mg PO DAILY #30 tablet 05/18/16 Metoprolol Succinate [Toprol XL -] 0 mg PO HS 05/31/16 Pantoprazole Sodium [Protonix -] 40 mg PO DAILY #30 tablet.ec 06/02/16 <Jesus Hinton - Last Filed: 06/02/16 11:46> Current Active Problems Aortic valve replaced (Acute) Chest pain (Acute) DVT prophylaxis (Acute) FH: CABG (coronary artery bypass surgery) (Acute) GIB (gastrointestinal bleeding) (Acute) H/O aortic valve repair (Acute) Anemia (Chronic) HIV (human immunodeficiency virus infection) (Chronic) HTN (hypertension) (Chronic) - Home Medications Comprehensive Discharge Medication List: Ambulatory Orders Darunavir/Cobicistat [Prezcobix 800 mg-150 mg Tablet] 1 each PO DAILY #30 tablet 05/18/16 Dolutegravir Sodium [Tivicay] 50 mg PO DAILY #30 tablet 03/03/17 Metoprolol Succinate [Toprol XL -] 0 mg PO HS 05/31/16 Pantoprazole Sodium [Protonix -] 40 mg PO DAILY #30 tablet.ec 06/02/16 <Juan Gar - Last Filed: 06/02/16 12:54> Condition: Stable - Instructions Diet, Activity, Other Instructions: Discharge Home resume cardiac diet Resume home activity Avoid aspirin until seen by chimney mechanic Avoid NSAIDs Resume Home medication except for aspirin Follow up with chimney mechanic within 1 week follow up with PCP Follow up with Gastroeneterologist Dr pardo within 1-2 week If having alka bleeding with bright red blood, black stool, If having dizziness, chest pain, shortness of breath, fatigue please come back to the emergency room or call your physician Referrals: Connor Pardo MD [Staff Physician] - 1 Week Rohan Walker MD [Staff Physician] - 1 Week Disposition: HOME This patient is new to me today: No Emergency Visit: Yes ED Registration Date: 05/31/16 Care time: The patient presented to the Emergency Department on the above date and was hospitalized for further evaluation of their emergent condition. Critical Care patient: No - Discharge Referral Referred to [facility] Med P.C.: No <Jesus Hinton - Last Filed: 06/02/16 11:46>
[2016-06-02 14:22] LABS: ANISOCYTOSIS 2+; HYPOCHROMIA 2+; MICROCYTOSIS 2+; OVALOCYTES 1+; PLATELET COMMENT2 NO CLOTTING DETECTED; PLATELET ESTIMATE SLT DECREASED (NORMAL); POIKILOCYTOSIS 2+; POLYCHROMASIA 2+
[2016-06-02] MEDS ORDERED: DOLUTEGRAVIR 50 MG PO SCH (17:30)
[2016-06-02] MEDS ORDERED: PREZCOBIX PO SCH (17:30)
== END 2016-06-02 13:32 | disposition home or self-care (01) | DRG 377 ==
LOC: JER 14:55 → JERBED 17:25 → J4W 20:13
PROVIDERS: ADMIT Internal Medicine; ATTEND Internal Medicine
PROC: 30233N1 Transfusion of Nonautologous Red Blood Cells into Peripheral Vein, Percutaneous Approach (ICD-10-PCS; 2016-05-31)
PROC: 0DJ08ZZ Inspection of Upper Intestinal Tract, Via Natural or Artificial Opening Endoscopic (ICD-10-PCS; principal; 2016-06-01 15:00)
DX: K92.2 Gastrointestinal hemorrhage, unspecified (principal); B20 Human immunodeficiency virus [HIV] disease; D62 Acute posthemorrhagic anemia; I24.8 Other forms of acute ischemic heart disease; I10 Essential (primary) hypertension; Z95.2 Presence of prosthetic heart valve; Z95.1 Presence of aortocoronary bypass graft; F41.8 Other specified anxiety disorders; K44.9 Diaphragmatic hernia without obstruction or gangrene; R07.9 Chest pain, unspecified
CPT/HCPCS: 36415; 36430; 71010-TC; 80053; 82272; 82550; 83690; 84484; 85025; 85027; 85610; 86850; 86900; 86901; 86922; 93005; 93010; 93306-TC; 99285-25; P9038; P9058

== ENCOUNTER 2016-07-12 15:14 | Inpatient (IN) | payer OTHER ==
[2016-07-12 15:29] VITALS: BMI 31.9
[2016-07-12 18:03] LABS: BASOPHIL 0.6 % (0-2.0); EOSINOPHIL 2.6 % (0-4.5); MCH 20.1 pg (25.7-33.7); MEAN CELL VOLUME 66.9 fl (80-96); MEAN PLT VOLUME 9.1 fl (7.5-11.1); PLATELET COUNT 189 K/MM3 (134-434); RDW 21.9 % (11.9-15.9); WHITE BLOOD COUNT 4.3 K/mm3 (4.0-10.0)
--- NOTE | 2016-07-12 18:12 | PDOC ---
History of Present Illness <Tracy Lynch - Last Filed: 07/12/16 19:21> - General History Source: Patient Exam Limitations: No Limitations - History of Present Illness Initial Comments: 07/12/16 18:13 66y M hx of HIV, htn, GIB duidenitis, cad s/p CABG, presents with concern for anemia - the pt was todl to go to [facility] by his GI doctor as he has had dark colored stool 3x the past week that was a bit soft - recently the pt states his stool is less frequently dark, his last bm this morning was brownish. Pt does endorse having exertional cp and sob that was worse recently as well as some lightheadedness particularly when he is bending over. Pt states he has had similar sypmtoms in the past, but may be sightly worse today. Pt denies any n/v , diaphoresis. Pt denies any abd pain, rectal pain/bleeding. Pt denies any headache, dizziness. PMD: Dr Fernández Cards: Mathieu GI: [place] <Kavon Kincaid - Last Filed: 07/12/16 19:43> - General Chief Complaint: Revisit, Lab Variance Stated Complaint: LAB VARIANCE, PCP SENT Time Seen by Provider: 07/12/16 16:55 Past History <Tracy Lynch - Last Filed: 07/12/16 19:21> - Past Medical History Anemia: No Asthma: No Cancer: No Cardiac Disorders: Yes (valve replacement) CVA: No COPD: No CHF: No (Need clariification) Dementia: No Diabetes: No GI Disorders: Yes (tarry stool, + Deuodinitis and one nonbleeding angioectas) Disorders: No HTN: Yes Hypercholesterolemia: No HIV: Yes Liver Disease: No Psychiatric Problems: Yes (ANXIETY DEPRESSION) Seizures: No Thyroid Disease: No - Surgical History Abdominal Surgery: No Appendectomy: No Cardiac Surgery: Yes ([facility] Cardothoracic [facility] - Dr. Reese Garcia MD Aortic Sten) Cholecystectomy: No Lung Surgery: No - Immunization History Immunization Up to Date: Yes - Psycho/Social/Smoking Cessation Hx Suicidal Ideation: No Smoking History: Former smoker Have you smoked in the past 12 months: No If you are a former smoker, when did you quit?: 2009 Information on smoking cessation initiated: No Hx Alcohol Use: No Drug/Substance Use Hx: No Hx Substance Use Treatment: No <Kavon Kincaid - Last Filed: 07/12/16 19:43> - Past Medical History Allergies/Adverse Reactions: Allergies Allergy/AdvReac Type Severity Reaction Status Date / Time No Known Allergies Allergy Verified 07/12/16 15:22 Home Medications: Ambulatory Orders Darunavir/Cobicistat [Prezcobix 800 mg-150 mg Tablet] 1 each PO DAILY #30 tablet 05/18/16 Dolutegravir Sodium [Tivicay] 50 mg PO DAILY #30 tablet 05/18/16 Metoprolol Succinate [Toprol XL -] 0 mg PO HS 05/31/16 Pantoprazole Sodium [Protonix -] 40 mg PO DAILY #30 tablet.ec 06/02/16 Bupropion HCl [Bupropion HCl Sr] 150 mg PO AM #30 tablet.er 06/21/16 Zolpidem Tartrate [Ambien] 5 mg PO HS #30 tablet MDD 1 06/21/16 Zolpidem Tartrate [Ambien] 5 mg PO HS #30 tablet MDD 1 06/21/16 Amoxicillin - [Amoxicillin 500mg Capsule -] 500 mg PO DAILY #7 capsule 06/29/16 Review of Systems - Review of Systems Able to Perform ROS?: Yes Comments:: 07/12/16 18:16 Constitutional - no reported Fever, Chills, weakness, HEENT: no reported vision changes, sore throat Respiratory: no reported cough, sob, hemoptysis Cardiac: +exertional cp/sob no reported palpitations, light headedness, leg swelling Abd/GI: +black stool no reported abd pain, nausea, vomiting, blood per rectum, diarrhea : no reported dysuria, frequency, discharge Musculskelatal - no reported back pain, joint swelling skin - no reported bruising, erythema, rash neurological: no reported headache, numbness, focal weakness, tingling, ataxia, weakness hematologic: no reported anemia, easy bruising, easy bleeding <Kavon Kincaid - Last Filed: 07/12/16 19:43> *Physical Exam - Vital Signs Last Vital Signs Temp Pulse Resp BP Pulse Ox 97.8 F 79 22 118/56 96 07/12/16 15:22 07/12/16 15:22 07/12/16 15:22 07/12/16 15:22 07/12/16 15:22 <Tracy Lynch - Last Filed: 07/12/16 19:21> - Vital Signs Last Vital Signs Temp Pulse Resp BP Pulse Ox 97.8 F 79 22 118/56 96 07/12/16 15:22 07/12/16 15:22 07/12/16 15:22 07/12/16 15:22 07/12/16 15:22 - Physical Exam Comments: 07/12/16 18:16 GENERAL: The patient is awake, alert, and fully oriented, Nontoxic - in no acute distress. HEAD: Normocephalic, atraumatic. EYES: extraocular movements intact, sclera anicteric, conjunctiva clear. ENT: Normal voice, Moist mucous membranes. NECK: Normal range of motion, supple LUNGS: Breath sounds equal, clear to auscultation bilaterally. No wheezes, no rhonchi, no rales. HEART: Regular rate and rhythm, normal S1 and S2 without murmur, rub or gallop. ABDOMEN: Soft, nontender, normoactive bowel sounds. No guarding, no rebound. . No CVA tenderness EXTREMITIES: Normal range of motion, no edema. No clubbing or cyanosis. No cords, erythema, or tenderness. NEUROLOGICAL: No facial assymetry, Normal speech, PSYCH: Normal mood, normal affect. SKIN: Warm, Dry, normal turgor, <Kavon Kincaid - Last Filed: 07/12/16 19:43> Heart Score/ECG Review - ECG Impressions Comment:: 07/12/16 18:17 Twelve-lead EKG was performed and reviewed by me. There is normal sinus rhythm with a normal rate. rate of 62 The axis is normal. The intervals are normal. There is normal R wave progression new TWI n V4 and V5 (not present in May 31, 2016) TWI in I and aVL (present on previous ekg) <Kavon Kincaid - Last Filed: 07/12/16 19:43> ED Treatment Course - LABORATORY CBC & Chemistry Diagram: 07/12/16 17:48 07/12/16 17:48 - ADDITIONAL ORDERS Additional order review: Laboratory Results 07/12/16 07/12/16 18:10 17:48 Sodium 139 Potassium 4.4 Chloride 103 Carbon Dioxide 25 Anion Gap 11 BUN 17 Creatinine 1.2 Creat Clearance w eGFR > 60 Random Glucose 108 H Calcium 9.3 Total Bilirubin 0.3 D AST 24 ALT 35 Alkaline Phosphatase 101 Total Protein 7.2 Albumin 3.7 Stool Occult Blood Negative 07/12/16 17:48 RBC 4.25 MCV 66.9 L MCHC 30.0 L RDW 21.9 H MPV 9.1 Neutrophils % 59.0 Lymphocytes % 20.9 Monocytes % 16.9 H Eosinophils % 2.6 Basophils % 0.6 <Tracy Lynch - Last Filed: 07/12/16 19:21> - LABORATORY CBC & Chemistry Diagram: 07/12/16 17:48 07/12/16 17:48 - ADDITIONAL ORDERS Additional order review: 07/12/16 17:48 RBC 4.25 MCV 66.9 L MCHC 30.0 L RDW 21.9 H MPV 9.1 Neutrophils % 59.0 Lymphocytes % 20.9 Monocytes % 16.9 H Eosinophils % 2.6 Basophils % 0.6 - RADIOLOGY Radiology Studies Ordered: Category Date Time Status CHEST X-RAY PORTABLE* [RAD] Stat Radiology 07/12/16 16:56 Taken <Kavon Kincaid - Last Filed: 07/12/16 19:43> Medical Decision Making - Medical Decision Making 07/12/16 19:[address] aWlker at 19:04 via answering service, awaiting call back. Paged Dr. Pardo at 19:06 via answering service, awaiting call back. Paged Dr. Myers at 19:10 via answering service, awaiting call back. Paged Dr. Fontenot at 19:15 via answering service, awaiting call back. <Tracy Lynch - Last Filed: 07/12/16 19:21> - Medical Decision Making 07/12/16 18:12 66-year-old gentleman presenting with several episodes of dark stools last week was sent to the ER by his GI doctor for further evaluation and management. The patient is alsocomplaining of exertional cp - exam unremarkable and his stool was yellow appearing - guaiac sent to lab the pts EKG notable for TWI in V4 and V5 will r/o anemia but also r/o acs due to his exetional cp (which othrwise seem chronic) 07/12/16 19:04 07/12/16 19:05 07/12/16 19:06 labs noted for hgb 8.6 which seems his baseline awaiting troponin stool guaiac negative - as there is a concern for ACS will give pt asa 162mg will notify dr. Pardo and dR. walker will observe for further risk straetification will admit to hospitalist service in observation Case discussed in detail with admitting physician including history, physical exam and ancillary studies. Admitting physician has assumed care for the patient, will follow all pending diagnostics and will complete the evaluation and treatment. 07/12/16 19:12 <Kavon Kincaid - Last Filed: 07/12/16 19:43> *DC/Admit/Observation/Transfer - Attestations Scribe Attestion: 07/12/16 19:21 Documentation prepared by Tracy Lynch, acting as medical pathology teacher for Kavon Kincaid MD, /DO. <Tracy Lynch - Last Filed: 07/12/16 19:21> - Discharge Dispostion Admit: Yes <Kavon Kincaid - Last Filed: 07/12/16 19:43> Diagnosis at time of Disposition: Acute electrocardiogram changes Anemia Qualifiers: Anemia type: unspecified type Qualified Code(s): D64.9 - Anemia, unspecified Chest pain Qualifiers: Chest pain type: unspecified Qualified Code(s): R07.9 - Chest pain, unspecified - Discharge Dispostion Condition at time of disposition: Guarded
[2016-07-12 18:27] LABS: ALBUMIN 3.7 g/dl (3.4-5.0); ALK PHOS 101 U/L (45-117); ANION GAP 11 (8-16); BILIRUBIN,TOTAL 0.3 mg/dL (0.2-1.0); CALCIUM 9.3 mg/dL (8.5-10.1); CO2 25 mmol/L (21-32); COCKROFT - GAULT 82.68; CREATININE 1.2 mg/dL (0.7-1.3); GLUCOSE,RANDOM 108 mg/dL (74-106); SGOT/AST 24 U/L (15-37); SGPT/ALT 35 U/L (12-78); TOT PROT 7.2 g/dl (6.4-8.2)
[2016-07-12 18:41] LABS: INR 1.06 (0.82-1.09); PROTHROMBIN TIME (PATIENT) 11.7 SEC (9.98-11.88)
[2016-07-12 19:01] LABS: STOOL FOR OCCULT BLOOD NEGATIVE (NEGATIVE)
[2016-07-12 19:06] LABS: TROPONIN I < 0.02 ng/ml (0.00-0.05)
[2016-07-12] MEDS ORDERED: ASPIRIN 81 MG CHEWABLE TABLETS PO ONE (19:06)
--- NOTE | 2016-07-12 19:40 | PN ---
<Gelacio Kent - Last Filed: 07/12/16 19:40> Teaching Attending Note Name of Resident: Cristina Vital ATTENDING PHYSICIAN STATEMENT I saw and evaluated the patient. I reviewed the resident's note and discussed the case with the resident. I agree with the resident's findings and plan as documented. SUBJECTIVE: OBJECTIVE: ASSESSMENT AND PLAN: <Katty Allenhel - Last Filed: 07/12/16 21:54> Teaching Attending Note ATTENDING PHYSICIAN STATEMENT I saw and evaluated the patient. I reviewed the resident's note and discussed the case with the resident. I agree with the resident's findings and plan as documented. SUBJECTIVE: The patient is a 66 year old male, with a significant past medical history of HIV (on BRITO), HTN, hx of GI Bleed, duodenitis, CAD s/p CABG, who presents with SOB, lightheadedness and 1 week hx of dark colored stool. OBJECTIVE: Last Vital Signs Temp Pulse Resp BP Pulse Ox 97.8 F 79 22 118/56 96 07/12/16 15:22 07/12/16 15:22 07/12/16 15:22 07/12/16 15:22 07/12/16 15:22 GEN: NAD HEENT: NCAT, PERRL CARD: RRR, 2/6 Systolic ejection murmur. RESP: CTAB ABD: NT, BWS x4 EXT: - CCE RECTAL: No hemorrhoids, anal fissures,no bright red blood in rectal wall. CBCD WBC 4.3 K/mm3 (4.0-10.0) 07/12/16 17:48 RBC 4.25 M/mm3 (4.00-5.60) 07/12/16 17:48 Hgb 8.5 GM/dL (11.7-16.9) L 07/12/16 17:48 Hct 28.4 % (35.4-49) L 07/12/16 17:48 MCV 66.9 fl (80-96) L 07/12/16 17:48 MCHC 30.0 g/dl (32.0-35.9) L 07/12/16 17:48 RDW 21.9 % (11.9-15.9) H 07/12/16 17:48 Plt Count 189 K/MM3 (134-434) 07/12/16 17:48 MPV 9.1 fl (7.5-11.1) 07/12/16 17:48 CMP Sodium 139 mmol/L (136-145) 07/12/16 17:48 Potassium 4.4 mmol/L (3.5-5.1) 07/12/16 17:48 Chloride 103 mmol/L (98-107) 07/12/16 17:48 Carbon Dioxide 25 mmol/L (21-32) 07/12/16 17:48 Anion Gap 11 (8-16) 07/12/16 17:48 BUN 17 mg/dL (7-18) 07/12/16 17:48 Creatinine 1.2 mg/dL (0.7-1.3) 07/12/16 17:48 Creat Clearance w eGFR > 60 (>60) 07/12/16 17:48 Calcium 9.3 mg/dL (8.5-10.1) 07/12/16 17:48 Total Bilirubin 0.3 mg/dL (0.2-1.0) D 07/12/16 17:48 AST 24 U/L (15-37) 07/12/16 17:48 ALT 35 U/L (12-78) 07/12/16 17:48 Alkaline Phosphatase 101 U/L (45-117) 07/12/16 17:48 Total Protein 7.2 g/dl (6.4-8.2) 07/12/16 17:48 Albumin 3.7 g/dl (3.4-5.0) 07/12/16 17:48 Imaging: CXR Impression: No significant interval change or acute lung disease is present. EKG performed in ED Twelve-lead EKG was performed and reviewed by Dr. Kincaid There is normal sinus rhythm with a normal rate. rate of 62 The axis is normal. The intervals are normal. There is normal R wave progression new TWI n V4 and V5 (not present in May 31, 2016) TWI in I and aVL (present on previous ekg) ASSESSMENT AND PLAN: The patient is a 66 year old male, with a significant past medical history of HIV (on BRITO), HTN, hx of GI Bleed, duodenitis, CAD s/p CABG, who presents with chest pain and SOB and dark stools. 1.)Chest pain -Heart score 6 -Trend EKG and troponins -Recent Echo 06/01 with EF on 85 % s/p ASA in ED -Cardiology consults -Monitor on Tele 2.)GI Bleed -Less likely due to negative occult and stable hemoglobin -H&H stable since 06/01 -Microcytic anemia -Iron studies and ferritin -Stool occult negative -GI consult 3.)AIDS -Continue BRITO 4.)HTN -Continue home medications 5.)DVT -Low risk -SCDs Documentation prepared by Carmen Allen, acting as director biomedical engineering for Gelacio Kent D.O.
--- NOTE | 2016-07-12 19:43 | HP ---
CHIEF COMPLAINT: referred by GI PCP: Dr. Fernández GI: Dr. Pardo Cardiology: Dr. Walker HISTORY OF PRESENT ILLNESS: 66 yr old yemeni speaking man with HIV on HAART, HTN, CAD s/p CABG, hx of recurrent GIB, bioprosthetic aortic valve, anxiety, referred by Dr. Pardo from a routine outpt GI follow-up visit for cbc and ED evaluation for melena and anemia. He had several soft dark colored stools during the week without any bright red blood or constipation. He also has a hx of intermitted "chest pressure" occurring during post-meal exertion. If he eats and tries to walk, he feels non-radiating chest pressure and shortness of breath. on an empty stomach he feels like he can walk for a long and does not have any shortness of breath. He gets lightheaded when this occurs and has to hold onto a parked car for a while, it is also worse when bending over. also c/o increased tiredness recently. He has has this chest pain since his CABG. He has had 3 negative endoscopies in the past, denies colonoscopies. receives IV infusion of iron every 6months at [facility]. denies iron tablets. denies palpitations, vomiting, nausea, abdominal pain, fever. ER course was notable for: (1) EKG with t-wave inversions in V4,v5 (2) trop x1 negative, ASA 162mg po (3) guaic negative Recent Travel: none PAST MEDICAL HISTORY: HIV on HAART HTN CAD s/p cabg duodenitis/GIB- requiring transfusions, 10/04/2015, 05/31/2016 PAST SURGICAL HISTORY: CABG 2015 aortic valve replaced 2016 at [facility] Social History: lives alone, retired, no SO/children Smoking: quit 6-7 yrs ago, smoked 2pks/day for 35 yrs Alcohol: denies Drugs: denies Family History: [place] Allergies No Known Allergies Allergy (Verified 07/12/16 15:22) HOME MEDICATIONS: Home Medications Medication Instructions Recorded Darunavir/Cobicistat [Prezcobix 1 each PO DAILY #30 tablet 05/18/16 800 mg-150 mg Tablet] Dolutegravir Sodium [Tivicay] 50 mg PO DAILY #30 tablet 05/18/16 Metoprolol Succinate [Toprol XL -] 0 mg PO HS 05/31/16 Pantoprazole Sodium [Protonix -] 40 mg PO DAILY #30 tablet.ec 06/02/16 Bupropion HCl [Bupropion HCl Sr] 150 mg PO AM #30 tablet.er 06/21/16 Zolpidem Tartrate [Ambien] 5 mg PO HS #30 tablet MDD 1 06/21/16 Zolpidem Tartrate [Ambien] 5 mg PO HS #30 tablet MDD 1 06/21/16 Amoxicillin - [Amoxicillin 500mg 500 mg PO DAILY #7 capsule 06/29/16 Capsule -] REVIEW OF SYSTEMS CONSTITUTIONAL: Absent: fever, chills, diaphoresis, generalized weakness, malaise, loss of appetite, weight change HEENT: Absent: rhinorrhea, nasal congestion, throat pain, throat swelling, difficulty swallowing, mouth swelling, ear pain, eye pain, visual changes CARDIOVASCULAR: Present: chest pain, lightheadedness, Absent: syncope, palpitations, irregular heart rate, peripheral edema RESPIRATORY: Absent: cough, shortness of breath, dyspnea with exertion, orthopnea, wheezing, stridor, hemoptysis GASTROINTESTINAL: Present: Absent: abdominal pain, abdominal distension, nausea, vomiting, diarrhea, constipation, melena, hematochezia GENITOURINARY: Absent: dysuria, frequency, urgency, hesitancy, hematuria, flank pain, genital pain MUSCULOSKELETAL: Absent: myalgia, arthralgia, joint swelling, back pain, neck pain SKIN: Absent: rash, itching, pallor HEMATOLOGIC/IMMUNOLOGIC: Absent: easy bleeding, easy bruising, lymphadenopathy, frequent infections ENDOCRINE: Absent: unexplained weight gain, unexplained weight loss, heat intolerance, cold intolerance NEUROLOGIC: Absent: headache, focal weakness or paresthesias, dizziness, unsteady gait, seizure, mental status changes, bladder or bowel incontinence PSYCHIATRIC: Absent: anxiety, depression, suicidal or homicidal ideation, hallucinations. PHYSICAL EXAMINATION Vital Signs - 24 hr 07/12/16 15:22 Temperature 97.8 F Pulse Rate 79 Respiratory 22 Rate Blood Pressure 118/56 O2 Sat by Pulse 96 Oximetry (%) GENERAL: Awake, alert, and fully oriented, in no acute distress. HEAD: Normal with no signs of trauma. EYES: Pupils equal, round and reactive to light, extraocular movements intact, sclera anicteric, conjunctiva clear. No lid lag. EARS, NOSE, THROAT: Ears normal, nares patent, oropharynx clear without exudates. Moist mucous membranes. NECK: Normal range of motion, supple without lymphadenopathy, JVD, or masses. no carotid bruits LUNGS: Breath sounds with b/l rales in upper b/l lobes, normal breath sounds at bases. No accessory muscle use. HEART: Regular rate and rhythm, normal S1 and S2 with systolic murmur. well- healed sternotomy scar. ABDOMEN: Soft, nontender, not distended, normoactive bowel sounds, no guarding. MUSCULOSKELETAL: Normal range of motion at all joints. No bony deformities or tenderness. No CVA tenderness. UPPER EXTREMITIES: 2+ pulses, warm, well-perfused. No cyanosis. No clubbing. No peripheral edema. LOWER EXTREMITIES: 2+ pulses, warm, well-perfused. No calf tenderness. No peripheral edema. NEUROLOGICAL: Cranial nerves II-XII intact. Normal speech. Normal gait. PSYCHIATRIC: Cooperative. Good eye contact. Appropriate mood and affect. SKIN: Warm, dry, normal turgor, no rashes or lesions noted, normal capillary refill. RECTAL: no fissures, normal rectal tone, no external hemorrhoids, prostate non- palpable, no stool in rectal vault. Laboratory Results - last 24 hr 07/12/16 07/12/16 07/12/16 17:48 17:48 18:10 WBC 4.3 RBC 4.25 Hgb 8.5 L Hct 28.4 L MCV 66.9 L MCHC 30.0 L RDW 21.9 H Plt Count 189 MPV 9.1 Neutrophils % 59.0 Lymphocytes % 20.9 Monocytes % 16.9 H Eosinophils % 2.6 Basophils % 0.6 Sodium 139 Potassium 4.4 Chloride 103 Carbon Dioxide 25 Anion Gap 11 BUN 17 Creatinine 1.2 Creat Clearance w eGFR > 60 Random Glucose 108 H Calcium 9.3 Total Bilirubin 0.3 D AST 24 ALT 35 Alkaline Phosphatase 101 Creatine Kinase 127 Troponin I < 0.02 D Total Protein 7.2 Albumin 3.7 Stool Occult Blood Negative ASSESSMENT/PLAN: 66 yr old man with hx of CAD s/p CABG, HIV on HAART, HTN, hx of GIB referred by GI for anemia, found to have new t-wave inversions, admitted to tele to r/o NSTEMI and anemia evaluation. #Chest pain: heart score 6, r/o [place]. - chronic hx of chest pain - tele monitoring - trend troponins, repeat EKG - Dr. Spear, cardiology consult - last echo 05/2016 - avoid asa/antiplatelets due to anemia #Anemia, initial concern for GI bleed due to pt's recent episodes of melena, however; H/H stable in comparison to 05/2016 labs, hemodynamically stable, guaic negative - chronic, as per previous notes: pt has undergone extensive gi work-up in the past without clear identification of bleed, recent endoscopy 06/01/[address] pardo. - iron studies with TIBC and ferritin --04/2016 iron level: 21, TIBC 493 - consider GI consult if drop in h/h - repeat CBC in the AM #HIV - continue home medications: Prezcobix 1 tablet po daily, Tivacay 50mg 1 tablet po daily - last HIV-RNA: <20 06/2016 #HTN - ramipril 5mg po daily - toprol XL 50mg po HS #Anxiety - clonazepam 0.5mg po BID prn - well butrin 150mg po daily #DVT - scd's given concern for GI bleed #Diet- low sodium #GI prophylaxis: pantoprazole 40mg 1 tablet daily Visit type - Emergency Visit Emergency Visit: Yes ED Registration Date: 07/12/16 Care time: The patient presented to the Emergency Department on the above date and was hospitalized for further evaluation of their emergent condition. - New Patient This patient is new to me today: Yes Date on this admission: 07/12/16 - Critical Care Critical Care patient: No
[2016-07-12 19:59] LABS: ANISOCYTOSIS 2+; HYPOCHROMIA 3+; MICROCYTOSIS 1+; POLYCHROMASIA 1+
[2016-07-12] MEDS ORDERED: METOPROLOL SUCCINATE 50 MG TAB.SR.24H (FP) PO SCH (22:00)
[2016-07-12] MEDS ORDERED: METOPROLOL SUCCINATE 50 MG TAB.SR.24H (FP) ONE (23:07)
[2016-07-12] MEDS ORDERED: ASPIRIN 81 MG CHEWABLE TABLETS ONE (23:07)
[2016-07-13] MEDS ORDERED: clonazePAM 0.5 MG TABLET PO PRN (00:06)
[2016-07-13 08:15] LABS: BASOPHIL 0.8 % (0-2.0); EOSINOPHIL 3.7 % (0-4.5); MCHC 29.7 g/dl (32.0-35.9); MEAN CELL VOLUME 66.7 fl (80-96); MEAN PLT VOLUME 8.7 fl (7.5-11.1); NEUTROPHILS 53.3 % (42.8-82.8); PLATELET COUNT 179 K/MM3 (134-434); WHITE BLOOD COUNT 4.3 K/mm3 (4.0-10.0)
[2016-07-13 08:18] LABS: MCH 19.8 pg (25.7-33.7)
--- NOTE | 2016-07-13 09:19 | CON.CARD ---
Consult Consult Specialty:: cardiology Reason for Consultation:: CABG; AoVR; mild chest discomfort related to abdominal pain immediately after eating - History of Present Illness Chief Complaint: Pt A&Ox3; no chest pain or abdominal pain presently. History of Present Illness: 66y M (b. Madai) hx of HIV, htn, GIB duidenitis, cad s/p bioprosthetic Aortic valve replacement and 2 VD CABG 05/2015 at [facility] anxiety, , presents with concern for anemia - the pt was todl to go to [facility] by his GI doctor as he has had dark colored stool 3x the past week that was a bit soft - recently the pt states his stool is less frequently dark, his last bm this morning was brownish. Pt does endorse having exertional cp and sob that was worse recently as well as some lightheadedness particularly when he is bending over. Pt states he has had similar sypmtoms in the past, but may be sightly worse today. Pt denies any n/v, diaphoresis. Pt denies any abd pain, rectal pain/ bleeding. Pt denies any headache, dizziness. PMD: Dr Fernández Cards: Mathieu GI: Fallick - History Source History Provided By: Patient, Medical Record Limitations to Obtaining History: No Limitations - Past Medical History Cardio/Vascular: Yes: CAD, CHF, HTN, Hyperlipdemia, Other (aortic vavle replacement) Infectious Disease: Yes: HIV - Past Surgical History Past Surgical History: Yes: CABG, Valve Replacement (aortic (bioprosthetic)) - Alcohol/Substance Use Hx Alcohol Use: No - Smoking History Smoking history: Former smoker Have you smoked in the past 12 months: No If you are a former smoker, when did you quit?: 2009 Home Medications - Allergies Allergies/Adverse Reactions: Allergies Allergy/AdvReac Type Severity Reaction Status Date / Time No Known Allergies Allergy Verified 07/12/16 15:22 - Home Medications Home Medications: Ambulatory Orders Darunavir/Cobicistat [Prezcobix 800 mg-150 mg Tablet] 1 each PO DAILY #30 tablet 05/18/16 Dolutegravir Sodium [Tivicay] 50 mg PO DAILY #30 tablet 05/18/16 Metoprolol Succinate [Toprol XL -] 0 mg PO HS 05/31/16 Pantoprazole Sodium [Protonix -] 40 mg PO DAILY #30 tablet.ec 06/02/16 Bupropion HCl [Bupropion HCl Sr] 150 mg PO AM #30 tablet.er 06/21/16 Zolpidem Tartrate [Ambien] 5 mg PO HS #30 tablet MDD 1 06/21/16 Amoxicillin - [Amoxicillin 500mg Capsule -] 500 mg PO DAILY #7 capsule 06/29/16 Atorvastatin Ca [Lipitor] 20 mg PO HS #30 tablet 07/13/16 Vital Signs: Vital Signs Temperature 98.2 F 07/13/16 05:00 Pulse Rate 65 07/13/16 08:03 Respiratory Rate 18 07/13/16 05:00 Blood Pressure 116/66 07/13/16 08:03 O2 Sat by Pulse Oximetry (%) 97 07/13/16 00:10 - Other Data Labs, Other Data: CBC, BMP 07/13/16 07:40 INR, PTT INR 1.06 (0.82-1.09) 07/12/16 17:48 Troponin, BNP 07/12/16 23:24 Troponin I < 0.02 Troponin, BNP 07/12/16 23:24 Troponin I < 0.02 Problem List - Problems (1) Chest pain Assessment/Plan: TNI .<0.02 x 3. EKG: NSR; LVH with repolarization abnormailites (essentially unchanged from office EKG done earlier this year). ECHO 07/13: normal LVEF; borderline LVH; possibly mild functional MV stenosis from MAC; bioprosthetic AoV with mean gradient 20 mmHg (mild-moderate ). Code(s): R07.9 - CHEST PAIN, UNSPECIFIED Qualifiers: Chest pain type: unspecified Qualified Code(s): R07.9 - Chest pain, unspecified (2) Anemia Assessment/Plan: Hb 8.9; f/u stool quaiac; seen by GI yesterday in office. Iron-deficient. Code(s): D64.9 - ANEMIA, UNSPECIFIED Qualifiers: Anemia type: unspecified type Qualified Code(s): D64.9 - Anemia, unspecified (3) Accelerated essential hypertension Code(s): I10 - ESSENTIAL (PRIMARY) HYPERTENSION (4) Aortic valve replaced Assessment/Plan: pericardial AoV replacement. F/u ECHO: see under "chest pain". Code(s): Z95.2 - PRESENCE OF PROSTHETIC HEART VALVE (5) FH: CABG (coronary artery bypass surgery) Code(s): Z84.89 - FAMILY HISTORY OF OTHER SPECIFIED CONDITIONS (6) HIV (human immunodeficiency virus infection) Assessment/Plan: f/u with ID. Code(s): Z21 - ASYMPTOMATIC HUMAN IMMUNODEFICIENCY VIRUS INFECTION STATUS (7) HTN (hypertension) Assessment/Plan: well-controlled with Altace and metoprolol ER. Code(s): I10 - ESSENTIAL (PRIMARY) HYPERTENSION (8) Hyperlipidemia Assessment/Plan: statin. Code(s): E78.5 - HYPERLIPIDEMIA, UNSPECIFIED
[2016-07-13 09:27] LABS: TROPONIN I < 0.02 ng/ml (0.00-0.05)
--- NOTE | 2016-07-13 09:42 | PN ---
Progress Note, Physician Chief Complaint: Pt A&Ox3; anxious; abdominal discomfort with accompanying mild chest heaviness after he eats. History of Present Illness: 66y M hx of HIV, htn, GIB duidenitis, cad s/p Aortic valve replacement ?CABG, presents with concern for anemia - the pt was todl to go to [facility] by his GI doctor as he has had dark colored stool 3x the past week that was a bit soft - recently the pt states his stool is less frequently dark, his last bm this morning was brownish. Pt does endorse having exertional cp and sob that was worse recently as well as some lightheadedness particularly when he is bending over. Pt states he has had similar sypmtoms in the past, but may be sightly worse today. Pt denies any n/v, diaphoresis. Pt denies any abd pain, rectal pain/bleeding. Pt denies any headache, dizziness. PMD: Dr Fernández Cards: Mathieu GI: Fallick - Current Medication List Current Medications: Active Medications Bupropion HCl (Wellbutrin Xl -) 150 mg PO DAILY SARAI Clonazepam (Klonopin -) 0.5 mg PO Q12H PRN PRN Reason: ANXIETY Metoprolol Succinate (Toprol Xl -) 50 mg PO [facility] Last Admin: 07/12/16 23:18 Dose: 50 mg Non-Formulary Medication (Darunavir/Cobicistat [Prezcobix 800 Mg-150 Mg Tablet] ) 1 each PO DAILY [facility] Non-Formulary Medication (Dolutegravir Sodium) 50 mg PO DAILY SARAI Pantoprazole Sodium (Protonix -) 40 mg PO DAILY SARAI Ramipril (Altace -) 5 mg PO DAILY [facility] - Objective Vital Signs: Vital Signs Temperature 98.2 F 07/13/16 05:00 Pulse Rate 65 07/13/16 08:03 Respiratory Rate 18 07/13/16 05:00 Blood Pressure 116/66 07/13/16 08:03 O2 Sat by Pulse Oximetry (%) 97 07/13/16 00:10 Labs: CBC, BMP 07/13/16 07:40 INR, PTT INR 1.06 (0.82-1.09) 07/12/16 17:48
[2016-07-13] MEDS ORDERED: PATIENT'S OWN MEDICATION (NON-FORMULARY) (Dolutegravir Sodium 50 MG) PO SCH (10:00)
[2016-07-13] MEDS ORDERED: PATIENT'S OWN MEDICATION (NON-FORMULARY) (Darunavir/Cobicistat [Prezcobix 800 Mg-150 Mg Ta PO SCH (10:00)
[2016-07-13] MEDS ORDERED: RAMIPRIL 5 MG CAPSULE (FP) PO SCH (10:00)
[2016-07-13] MEDS ORDERED: PANTOPRAZOLE 40 MG TABLET (FP) PO SCH (10:00)
--- NOTE | 2016-07-13 11:15 | EKG ---
Test Reason : Blood Pressure : / mmHG Vent. Rate : 061 BPM Atrial Rate : 061 BPM P-R Int : 206 ms QRS Dur : 092 ms QT Int : 420 ms P-R-T Axes : 060 -09 127 degrees QTc Int : 422 ms NORMAL SINUS RHYTHM LEFT VENTRICULAR HYPERTROPHY WITH REPOLARIZATION ABNORMALITY ABNORMAL ECG WHEN COMPARED WITH ECG OF 12-JUL-2016 17:30, NO SIGNIFICANT CHANGE WAS FOUND Confirmed by GEENA SANTOS MD ([id number]) on 07/13/2016 11:15:08 AM Referred By: KATHI BAUTISTA Confirmed By:GEENA SANTOS MD
--- NOTE | 2016-07-13 11:28 | EKG ---
Test Reason : Blood Pressure : / mmHG Vent. Rate : 062 BPM Atrial Rate : 062 BPM P-R Int : 202 ms QRS Dur : 092 ms QT Int : 410 ms P-R-T Axes : 055 -08 128 degrees QTc Int : 416 ms NORMAL SINUS RHYTHM ABNORMAL ECG Confirmed by GEENA SANTOS MD ([id number]) on 07/13/2016 11:28:25 AM Referred By: Confirmed By:GEENA SANTOS MD
--- NOTE | 2016-07-13 11:54 | PN ---
[id number] pain, N/V, fevers, chills. States he is having abdominal distention after eating meals. OBJECTIVE: Vital Signs Period Temp Pulse Resp BP Sys/Meza Pulse Ox Last 24 Hr 98.1 F-98.2 F 62-71 18-20 108-142/56-74 97 GENERAL: The patient is awake, alert, and fully oriented, in no acute distress. HEAD: Normal with no signs of trauma. EYES: PERRL, extraocular movements intact, sclera anicteric, conjunctiva clear. No ptosis. ENT: Ears normal, nares patent, oropharynx clear without exudates, moist mucous membranes. NECK: Trachea midline, full range of motion, supple. LUNGS: Breath sounds equal, clear to auscultation bilaterally, no wheezes, no crackles, no accessory muscle use. HEART: Regular rate and rhythm, S1, S2 ABDOMEN: Soft, nondistended, normoactive bowel sounds, no guarding, no rebound, no hepatosplenomegaly, no masses. EXTREMITIES: 2+ pulses, warm, well-perfused, no edema. NEUROLOGICAL: Cranial nerves II through XII grossly intact. Normal speech, gait not observed. PSYCH: Normal mood, normal affect. Laboratory Results - last 24 hr 07/12/16 07/13/16 07/13/16 23:24 07:40 07:40 WBC 4.3 RBC 4.49 Hgb 8.9 L Hct 29.9 L MCV 66.7 L MCHC 29.7 L RDW 22.0 H Plt Count 179 MPV 8.7 Neutrophils % 53.3 Lymphocytes % 23.8 Monocytes % 18.4 H Eosinophils % 3.7 Basophils % 0.8 Creatine Kinase 114 Troponin I < 0.02 < 0.02 Active Medications Generic Name Dose Route Start Last Admin Trade Name Freq PRN Reason Stop Dose Admin Atorvastatin Calcium 20 mg 07/13/16 22:00 Lipitor - PO HS SARAI Bupropion HCl 150 mg 07/13/16 10:00 Wellbutrin Xl - PO DAILY SARAI Clonazepam 0.5 mg 07/13/16 00:06 Klonopin - PO Q12H PRN ANXIETY Metoprolol Succinate 50 mg 07/12/16 22:00 07/12/16 23:18 Toprol Xl - PO 50 mg HS SARAI Administration Non-Formulary Medication 1 each 07/13/16 10:00 Darunavir/Cobicistat [Prezcobix 800 Mg-150 Mg Tablet] PO DAILY SARAI Non-Formulary Medication 50 mg 07/13/16 10:00 Dolutegravir Sodium PO DAILY SARAI Pantoprazole Sodium 40 mg 07/13/16 10:00 Protonix - PO DAILY SARAI Ramipril 5 mg 07/13/16 10:00 Altace - PO DAILY SARAI IMAGING: CXR 07/12 - No interval changes or active lung disease noted EKG 07/12 - Normal sinus rhythm, rate 62; normal axis and intervals; new T-wave inversion in leads V4, V5; old T-wave inversion in I and aVL ASSESSMENT/PLAN: 66 year-old male with PMH HIV on HAART, GI bleed, duodenitis, CAD s/p CABG 2014, AVR with bioprostethic valve in 2015, HTN, and anxiety presented to the ED at the recommendation of his GI doctor for "low blood levels " and three dark-colored stools over the course of a week. 1. R/o ACS - Pt presented with c/o chest pressure after eating and exertion - EKG shows new T-wave inversion - Serial troponins negative x 3 - Appreciate cardiac consult - Echo pending 2. Anemia - Hgb 8.9 (at baseline from previous admissions) - Ferritin and TIBC studies pending - No further episodes of "dark" stools per patient - Guaiac negative x 1 - Monitor 3. Abdominal Distention - chronic issue for pt - Will consult his GI physician Dr. Pardo 4. AIDS - last CD4 58 in 03/2016 - Continue home meds - Prezcobix and Dolutegravir 5. HTN - Stable - Continue on Ramipril and Toprol 6. F/E/N Fluids: encourage PO intake Electrolytes: monitor and replace as needed Nutrition: Low-sodium diet 7. Prophylaxis - Activity as tolerated - No a/c in setting of possible GI bleed and previous GI bleeds - Protonix 40mg PO daily Dispo: discharge home pending echo results FULL CODE Visit type - Emergency Visit Emergency Visit: Yes ED Registration Date: 07/12/16 Care time: The patient presented to the Emergency Department on the above date and was hospitalized for further evaluation of their emergent condition. - New Patient This patient is new to me today: Yes Date on this admission: 07/13/16 - Critical Care Critical Care patient: No
[2016-07-13 14:42] VITALS: BP 100/45; PULSE 61; TEMP 98.3
--- NOTE | 2016-07-13 14:48 | DS ---
Physical Exam: SUBJECTIVE: Patient seen and examined. OBJECTIVE: Vital Signs Period Temp Pulse Resp BP Sys/Meza Pulse Ox Last 24 Hr 98.1 F-98.3 F 61-71 18-20 100-142/45-74 97-99 PHYSICAL EXAM GENERAL: The patient is awake, alert, and fully oriented, in no acute distress. HEAD: Normal with no signs of trauma. EYES: PERRL, extraocular movements intact, sclera anicteric, conjunctiva clear. ENT: Ears normal, nares patent, oropharynx clear without exudates, moist mucous membranes. NECK: Trachea midline, full range of motion, supple. LUNGS: Breath sounds equal, clear to auscultation bilaterally, no wheezes, no crackles, no accessory muscle use. HEART: Regular rate and rhythm, S1, S2, murmur ABDOMEN: Soft, tender to deep LLQ palpation, nondistended, normoactive bowel sounds, no guarding, no rebound, no hepatosplenomegaly, no masses. EXTREMITIES: 2+ pulses, warm, well-perfused, no edema. NEUROLOGICAL: Cranial nerves II through XII grossly intact. Normal speech, gait not observed. PSYCH: Normal mood, normal affect. LABS Laboratory Results - last 24 hr 07/12/16 07/13/16 07/13/16 23:24 07:40 07:40 WBC 4.3 RBC 4.49 Hgb 8.9 L Hct 29.9 L MCV 66.7 L MCHC 29.7 L RDW 22.0 H Plt Count 179 MPV 8.7 Neutrophils % 53.3 Lymphocytes % 23.8 Monocytes % 18.4 H Eosinophils % 3.7 Basophils % 0.8 Creatine Kinase 114 Troponin I < 0.02 < 0.02 CMP Sodium 139 mmol/L (136-145) 07/12/16 17:48 Potassium 4.4 mmol/L (3.5-5.1) 07/12/16 17:48 Chloride 103 mmol/L (98-107) 07/12/16 17:48 Carbon Dioxide 25 mmol/L (21-32) 07/12/16 17:48 Anion Gap 11 (8-16) 07/12/16 17:48 BUN 17 mg/dL (7-18) 07/12/16 17:48 Creatinine 1.2 mg/dL (0.7-1.3) 07/12/16 17:48 Creat Clearance w eGFR > 60 (>60) 07/12/16 17:48 Random Glucose 108 mg/dL (74-106) H 07/12/16 17:48 Calcium 9.3 mg/dL (8.5-10.1) 07/12/16 17:48 Total Bilirubin 0.3 mg/dL (0.2-1.0) D 07/12/16 17:48 AST 24 U/L (15-37) 07/12/16 17:48 ALT 35 U/L (12-78) 07/12/16 17:48 Alkaline Phosphatase 101 U/L (45-117) 07/12/16 17:48 Total Protein 7.2 g/dl (6.4-8.2) 07/12/16 17:48 Albumin 3.7 g/dl (3.4-5.0) 07/12/16 17:48 HOSPITAL COURSE: This is a 66 year old male with PMH HIV on HAART, GIB, duodenitis, CAD s/p CABG 2014, bioprosthetic aortic valve 2015, HTN, and anxiety who presented to the ED with prompting from his GI doctor for chest discomfort. EKG showed T-wave inversions in V4, V5, V6, per cardiology essentially unchanged from office EKG earlier in the year. He was worked up for ACS (troponin negative x 3) and seen and evaluated by cardiology. His echo results were reviewed with Dr. Walker and he will start Lipitor and see patient as outpatient within one week. Pt's H/H was 8.9/29.9 which is at baseline for the pt and his dark stools have resolved. He was guaiac negative. Patient reported having chest pressure and SOB with exertion after eating meals for the past two years. Discussed case with Dr. Pardo who states he will see pt as outpatient for his chronic abdominal distention. Checked BP this afternoon and it was 118/70. Date of Admission:07/12/16 Date of Discharge: 07/13/16 Minutes to complete discharge: 45 Discharge Summary Reason For Visit: ANEMIA/CHEST PAIN/ACUTE ELECTROCAR POP Current Active Problems Acute electrocardiogram changes (Acute) Chest pain (Acute) Hyperlipidemia (Acute) Anemia (Chronic) Condition: Improved - Instructions Diet, Activity, Other Instructions: Please return to the ED with new, persistent, or worsening symptoms. Please follow up with providers as instructed. Referrals: Connor Pardo MD [Staff Physician] - (Please follow up with GI within 3-5 days for further evaluation of your abdominal bloating. Please keep a log of any foods that cause your bloating and bring to your next visit with Dr. Pardo.) Rohan Walker MD [Staff Physician] - (Please follow up with cardiology within one week. ) Rob Fernández MD [Staff Physician] - (Please follow up with Dr. Fernández within one week. ) Disposition: HOME - Home Medications Comprehensive Discharge Medication List: Ambulatory Orders Darunavir/Cobicistat [Prezcobix 800 mg-150 mg Tablet] 1 each PO DAILY #30 tablet 05/18/16 Dolutegravir Sodium [Tivicay] 50 mg PO DAILY #30 tablet 05/18/16 Metoprolol Succinate [Toprol XL -] 0 mg PO HS 05/31/16 Pantoprazole Sodium [Protonix -] 40 mg PO DAILY #30 tablet.ec 06/02/16 Bupropion HCl [Bupropion HCl Sr] 150 mg PO AM #30 tablet.er 06/21/16 Zolpidem Tartrate [Ambien] 5 mg PO HS #30 tablet MDD 1 06/21/16 Zolpidem Tartrate [Ambien] 5 mg PO HS #30 tablet MDD 1 06/21/16 Amoxicillin - [Amoxicillin 500mg Capsule -] 500 mg PO DAILY #7 capsule 06/29/16 This patient is new to me today: Yes Date on this admission: 08/16/16 Emergency Visit: Yes ED Registration Date: 07/12/16 Care time: The patient presented to the Emergency Department on the above date and was hospitalized for further evaluation of their emergent condition. Critical Care patient: No - Discharge Referral Referred to [facility] Med [facility] No
[2016-07-13] MEDS ORDERED: ATORVASTATIN CA 20 MG TABLET (FP) PO SCH (22:00)
[2016-07-14 06:06] LABS: SERUM IRON 17 ug/dL (38-169); TOTAL IRON BINDING CAPACITY 502 ug/dL (250-450); UIBC 485 ug/dL (111-343)
== END 2016-07-13 17:53 | disposition home or self-care (01) | DRG 313 ==
LOC: JER 15:14 → JERBED 19:21 → J4W 23:45
PROVIDERS: ADMIT Internal Medicine; ATTEND Registered Nurse
DX: R07.89 Other chest pain (principal); B20 Human immunodeficiency virus [HIV] disease; D64.9 Anemia, unspecified; I25.10 Atherosclerotic heart disease of native coronary artery without angina pectoris; F41.8 Other specified anxiety disorders; K29.80 Duodenitis without bleeding; R94.31 Abnormal electrocardiogram [ECG] [EKG]; I10 Essential (primary) hypertension; E78.5 Hyperlipidemia, unspecified; R14.0 Abdominal distension (gaseous); Z87.891 Personal history of nicotine dependence; Z95.2 Presence of prosthetic heart valve; Z95.1 Presence of aortocoronary bypass graft
CPT/HCPCS: 36415; 71010-TC; 80053; 81003; 82272; 82550; 83540; 83550; 84484; 85025; 85610; 86850; 86900; 86901; 93005; 93010; 93306-TC; 99285-25

== ENCOUNTER 2017-05-17 11:31 | Inpatient (IN) | payer OTHER ==
[2017-05-17 12:02] VITALS: BMI 29.6
--- NOTE | 2017-05-17 12:44 | PDOC ---
Attending Attestation - Resident Resident Name: SubhashOrestes - HPI HPI: 05/17/17 13:04 Pt presents to the ED complaining of progressively worsening chest pain, shortness of breath and lightheadness. Patient has longstanding history of AIDS and has recently been non compliant with meds secondary to insurance issues. Seen in [facility] in early April, diagnosed with hgb of 4, for which he recieved no treatment. Also has history of GI bleeds in the past, reports intermittent rectal bleeding during the last few weeks. 05/17/17 13:11 - Physicial Exam PE: 05/17/17 13:13 Agree with resident exam. Patient is extremely pale and has conversational dyspnea. - Critical Care Time Total Critical Care Time: 30 Critical Care Statement: The care of this patient involved high complexity decision making to prevent further life threatening deterioration of the patient 's condition and/or to evaluate & treat vital organ system(s) failure or risk of failure. - Medical Decision Making 05/17/17 13:14 Pt presents to the ED complaining of severe anemia. Found to be extremely anemic on labs. Will admit and transfuse. Will check EKG and cardiac profile rto rule out MN given cardiac history.
[2017-05-17 13:00] LABS: BASO % 0.6 % (0-2.0); EOS % 2.6 % (0-4.5); HEMATOCRIT 15.3 % (35.4-49); LYMPH % 27.2 % (8-40); MCHC 26.4 g/dl (32.0-35.9); MEAN CELL VOLUME 56.5 fl (80-96); MEAN PLT VOLUME 8.7 fl (7.5-11.1); MONO % 18.6 % (3.8-10.2); PLATELET COUNT 129 K/MM3 (134-434)
[2017-05-17 13:03] LABS: MCH 14.9 pg (25.7-33.7)
--- NOTE | 2017-05-17 13:04 | PDOC ---
History of Present Illness <Arnaud Suresh - Last Filed: 05/17/17 15:36> - General History Source: Patient - History of Present Illness Initial Comments: 05/17/17 12:54 Patient is a 67M with history of HIV/AIDS (last CD4 count 90 in 10/01, not on HAART, not taking bactrim), CAD s/p CABG, s/p mechanical aortic valve replacement, recurrent GI bleed here today complaining of months of weakness, chest pain and shortness of breath. Patient has lab work from [facility] in early April showing hgb of 4.3, wbc of 2.5, platelets of 104. Patient also states that he's had several episodes of diarrhea. Denies fevers, chills, nausea, vomiting. Denies recent antibiotics use. <Orestes Cullen - Last Filed: 05/17/17 16:39> - General Chief Complaint: Revisit, Lab Variance Stated Complaint: EVALUATION Time Seen by Provider: 05/17/17 12:26 Past History <Arnaud Suresh - Last Filed: 05/17/17 15:36> - Past Medical History Anemia: No Asthma: No Cancer: No Cardiac Disorders: Yes (valve replacement) CVA: No COPD: No CHF: No (Need clariification) DVT: No Dementia: No Diabetes: No GI Disorders: Yes (tarry stool, + Deuodinitis and one nonbleeding angioectas) Disorders: No HTN: Yes Hypercholesterolemia: No Liver Disease: No Psychiatric Problems: Yes (ANXIETY DEPRESSION) Seizures: No Thyroid Disease: No - Surgical History Abdominal Surgery: No Appendectomy: No Cardiac Surgery: Yes ([facility] Cardothoracic Surgery - Dr. Reese Garcia MD Aortic Sten) Cholecystectomy: No Lung Surgery: No - Immunization History Immunization Up to Date: Yes - Suicide/Smoking/Psychosocial Hx Smoking History: Never smoked Have you smoked in the past 12 months: No If you are a former smoker, when did you quit?: 2009 Information on smoking cessation initiated: No Hx Alcohol Use: No Drug/Substance Use Hx: No Substance Use Type: None Hx Substance Use Treatment: No <Orestes Cullen - Last Filed: 05/17/17 16:39> - Past Medical History Allergies/Adverse Reactions: Allergies Allergy/AdvReac Type Severity Reaction Status Date / Time No Known Allergies Allergy Verified 05/17/17 11:56 Home Medications: Ambulatory Orders Bupropion HCl [Bupropion HCl Sr] 150 mg PO AM #30 tablet.er 09/20/16 Clonazepam [Klonopin] 0.5 mg PO AM PRN #30 tablet MDD 2 09/21/16 Atorvastatin Ca [Lipitor] 20 mg PO HS #30 tablet 10/02/16 Metoprolol Succinate [Toprol XL -] 1 tab PO HS #30 tab 10/02/16 Darunavir/Cobicistat [Prezcobix 800 mg-150 mg Tablet] 1 each PO DAILY #30 tablet 11/13/16 Dolutegravir Sodium [Tivicay] 50 mg PO DAILY #30 tablet 11/13/16 Review of Systems - Review of Systems Comments:: 05/17/17 13:04 GENERAL/CONSTITUTIONAL: No fever or chills. No weakness. HEAD, EYES, EARS, NOSE AND THROAT: No change in vision. No sore throat. CARDIOVASCULAR: Positive for chest pain and shortness of breath RESPIRATORY: No cough, wheezing, or hemoptysis. GASTROINTESTINAL: No nausea, vomiting. Positive for diarrhea. GENITOURINARY: No dysuria, frequency, or change in urination. MUSCULOSKELETAL: No joint or muscle swelling or pain. No neck or back pain. SKIN: No rash NEUROLOGIC: No headache, loss of consciousness, or change in strength/sensation. ENDOCRINE: No increased thirst. Positive for weight loss HEMATOLOGIC/LYMPHATIC: Positive for history of anemia and easy bleeding ALLERGIC/IMMUNOLOGIC: Positive for rash along left leg <Orestes Cullen - Last Filed: 05/17/17 16:39> *Physical Exam - Vital Signs Last Vital Signs Temp Pulse Resp BP Pulse Ox 98.5 F 83 16 112/68 98 05/17/17 14:42 05/17/17 14:42 05/17/17 14:42 05/17/17 14:42 05/17/17 14:42 <Arnaud Suresh - Last Filed: 05/17/17 15:36> - Vital Signs Last Vital Signs Temp Pulse Resp BP Pulse Ox 98.1 F 75 17 122/48 98 05/17/17 11:57 05/17/17 11:57 05/17/17 11:57 05/17/17 11:57 05/17/17 11:57 - Physical Exam Comments: 05/17/17 13:06 GENERAL: Awake, alert, and fully oriented, pale appearing HEAD: No signs of trauma, normocephalic, atraumatic EYES: PERRLA, EOMI ENT: Auricles normal inspection, hearing grossly normal, nares patent, oropharynx clear without exudates. Moist mucosa. NECK: Normal ROM, supple, no lymphadenopathy, JVD, or masses LUNGS: No distress, speaks full sentences, clear to auscultation bilaterally HEART: Regular rate and rhythm, systolic blowing murmur, loud S1 and S2, peripheral pulses normal and equal bilaterally. ABDOMEN: Soft, nontender, normoactive bowel sounds. No guarding, no rebound. No masses EXTREMITIES: Normal inspection, Normal range of motion, no edema. No clubbing or cyanosis. NEUROLOGICAL: Cranial nerves II through XII grossly intact. Normal speech, normal gait, no focal sensorimotor deficits SKIN: Warm, Dry, normal turgor, maculopapular rash over lateral left leg with several excoriations RECTAL: Nontender, no alka blood, no masses <Orestes Cullen - Last Filed: 05/17/17 16:39> ED Treatment Course - LABORATORY CBC & Chemistry Diagram: 05/17/17 12:47 05/17/17 12:47 - ADDITIONAL ORDERS Additional order review: Laboratory Results 05/17/17 05/17/17 05/17/17 12:47 12:47 12:47 PT with INR INR Sodium 138 Potassium 4.1 Chloride 107 Carbon Dioxide 23 Anion Gap 8 BUN 17 Creatinine 0.8 D Creat Clearance w eGFR > 60 Random Glucose 105 Calcium 7.8 L Magnesium 2.0 Total Bilirubin 0.4 Direct Bilirubin 0.2 AST 17 ALT 12 D Alkaline Phosphatase 138 H D Creatine Kinase 50 Troponin I < 0.02 Total Protein 6.7 Albumin 3.4 Stool Occult Blood Negative Blood Type O POSITIVE Antibody Screen Negative Crossmatch See Detail 05/17/17 12:47 PT with INR 12.40 H INR 1.10 Sodium Potassium Chloride Carbon Dioxide Anion Gap BUN Creatinine Creat Clearance w eGFR Random Glucose Calcium Magnesium Total Bilirubin Direct Bilirubin AST ALT Alkaline Phosphatase Creatine Kinase Troponin I Total Protein Albumin Stool Occult Blood Blood Type Antibody Screen Crossmatch 05/17/17 12:47 RBC 2.70 L D MCV 56.5 L MCHC 26.4 L RDW 23.0 H MPV 8.7 Neutrophils % 51.0 D Lymphocytes % 27.2 D Monocytes % 18.6 H Eosinophils % 2.6 Basophils % 0.6 <Arnaud Suresh - Last Filed: 05/17/17 15:36> - LABORATORY CBC & Chemistry Diagram: 05/17/17 12:47 05/17/17 12:47 - RADIOLOGY Radiology Studies Ordered: Category Date Time Status CHEST X-RAY PORTABLE* [RAD] Stat Radiology 05/17/17 12:38 Ordered <Orestes Cullen - Last Filed: 05/17/17 16:39> Medical Decision Making - Medical Decision Making 05/17/17 15:[address] Cobos for admission at 14:00, 14:20, and 14:40, awaiting callback. 05/17/17 15:[address] Cobos twice overhead at 14:00 and 15:00 with no call back. 05/17/17 15:[address] Wick twice overhead at 14:20 and 14:40 as office says she may be covering. 05/17/17 15:[address] Cobos service for 4th time. <Arnaud Suresh - Last Filed: 05/17/17 15:36> - Medical Decision Making 05/17/17 13:10 Patient is 67M is history of HIV/AIDS, CAD s/p CABG, mechanical aortic valve replacement, recurrent GI bleeds here today complaining of shortness of breath, weakness, chest pain. Vital signs stable and normal. Suspect patient has symptomatic anemia, differential for cause of anemia weighted towards GI bleed vs hemolysis. 05/17/17 13:55 Laboratory Tests 05/17/17 05/17/17 05/17/17 12:47 12:47 12:47 WBC 1.6 L* D Hgb 4.0 L* D Hct 15.3 L D MCV 56.5 L RDW 23.0 H Plt Count 129 L D INR 1.10 Total Bilirubin 0.4 Direct Bilirubin 0.2 Troponin I < 0.02 Stool Occult Blood 05/17/17 12:47 WBC Hgb Hct MCV RDW Plt Count INR Total Bilirubin Direct Bilirubin 816 Troponin I Stool Occult Blood Negative CXR shows no acute cardiopulmonary process. EKG shows sinus rhythm with 1st degree AV block (KS = 216). Normal axis. Normal rate. No st elevations/depressions. Biphasic t-waves in V5/V6. WBC 1.6. ANC calculates to 816. Hgb 4.0, shows microcytic anemia for RDW. Trop negative. Stool for occult blood negative. Tbili normal. Will transfuse 2 units. Will admit to tele. 05/17/17 16:38 Admitted to [facility] via [facility] [employer] [facility]. <Orestes Cullen - Last Filed: 05/17/17 16:39> *DC/Admit/Observation/Transfer <Arnaud Suresh - Last Filed: 05/17/17 15:36> - Discharge Dispostion Admit: Yes <Orestes Cullen - Last Filed: 05/17/17 16:39> Diagnosis at time of Disposition: Anemia - Discharge Dispostion Condition at time of disposition: Stable
[2017-05-17 13:06] LABS: WHITE BLOOD COUNT 1.6 K/mm3 (4.0-10.0)
[2017-05-17 13:16] LABS: ALBUMIN 3.4 g/dl (3.4-5.0); ANION GAP 8 (8-16); BILIRUBIN,DIRECT 0.2 mg/dL (0.0-0.2); BILIRUBIN,TOTAL 0.4 mg/dL (0.2-1.0); BLOOD UREA NITROGEN 17 mg/dL (7-18); CALCIUM 7.8 mg/dL (8.5-10.1); CHLORIDE 107 mmol/L (98-107); CO2 23 mmol/L (21-32); CREATININE 0.8 mg/dL (0.7-1.3); GLUCOSE,RANDOM 105 mg/dL (74-106); POTASSIUM 4.1 mmol/L (3.5-5.1); SGOT/AST 17 U/L (15-37); SGPT/ALT 12 U/L (12-78); SODIUM 138 mmol/L (136-145); TOT PROT 6.7 g/dl (6.4-8.2)
[2017-05-17 13:17] LABS: INR 1.1 (0.82-1.09); PROTHROMBIN TIME (PATIENT) 12.4 SEC (9.98-11.88)
[2017-05-17 13:19] LABS: ALK PHOS 138 U/L (45-117)
[2017-05-17] MEDS ORDERED: clonazePAM 0.5 MG TABLET PO PRN (20:13)
[2017-05-17] MEDS: ATORVASTATIN CA 20 MG TABLET (FP) PO SCH (22:06)
[2017-05-18 07:58] LABS: BASO % 1.2 % (0-2.0); EOS % 5.1 % (0-4.5); HEMATOCRIT 21.3 % (35.4-49); LYMPH % 22.7 % (8-40); MCHC 29.8 g/dl (32.0-35.9); MEAN CELL VOLUME 63.6 fl (80-96); MEAN PLT VOLUME 8.8 fl (7.5-11.1); MONO % 16.2 % (3.8-10.2); NEUT % 54.8 % (42.8-82.8); PLATELET COUNT 117 K/MM3 (134-434); RBC 3.35 M/mm3 (4.00-5.60); WHITE BLOOD COUNT 2.6 K/mm3 (4.0-10.0)
[2017-05-18 08:05] LABS: ALBUMIN 3.2 g/dl (3.4-5.0); ANION GAP 7 (8-16); BILIRUBIN,TOTAL 0.8 mg/dL (0.2-1.0); BLOOD UREA NITROGEN 11 mg/dL (7-18); CALCIUM 7.8 mg/dL (8.5-10.1); CHLORIDE 107 mmol/L (98-107); CO2 25 mmol/L (21-32); CREATININE 0.7 mg/dL (0.7-1.3); GLUCOSE,RANDOM 79 mg/dL (74-106); POTASSIUM 4.3 mmol/L (3.5-5.1); SGOT/AST 14 U/L (15-37); SGPT/ALT 12 U/L (12-78); SODIUM 139 mmol/L (136-145); TOT PROT 6.4 g/dl (6.4-8.2)
[2017-05-18 08:07] LABS: MCH 18.9 pg (25.7-33.7)
[2017-05-18 08:09] LABS: HEMOGLOBIN 6.3 GM/dL (11.7-16.9)
[2017-05-18 08:14] LABS: ALK PHOS 124 U/L (45-117)
[2017-05-18] MEDS ORDERED: IRON SUCROSE INJECTION 300 MG in SODIUM CHLORIDE 235 ML IVPB ONE (10:00)
--- NOTE | 2017-05-18 11:33 | HP ---
Admitting History and Physical - Primary Care Physician PCP: Kizzy Cobos - Admission Chief Complaint: Anemia History of Present Illness: Patient is a 67M with history of HIV/AIDS (last CD4 count 90 in 10/01, not on HAART, not taking bactrim), CAD s/p CABG, s/p mechanical aortic valve replacement, recurrent GI bleed here today complaining of months of weakness, chest pain and shortness of breath. Patient has lab work from [facility] in early April showing hgb of 4.3, wbc of 2.5, platelets of 104. Patient also states that he's had several episodes of diarrhea. Denies fevers, chills, nausea, vomiting. Denies recent antibiotics use. History Source: Patient Limitations to Obtaining History: No Limitations - Past Medical History Cardiovascular: Yes: CAD, CHF, HTN, Hyperlipdemia, Other (aortic vavle replacement) Infectious Disease: Yes: HIV - Past Surgical History Past Surgical History: Yes: CABG, Valve Replacement (aortic (bioprosthetic)) - Smoking History Smoking history: Never smoked Have you smoked in the past 12 months: No If you are a former smoker, when did you quit?: 2010 - Alcohol/Substance Use Hx Alcohol Use: No Home Medications - Allergies Allergies/Adverse Reactions: Allergies Allergy/AdvReac Type Severity Reaction Status Date / Time No Known Allergies Allergy Verified 05/17/17 11:56 - Home Medications Home Medications: Ambulatory Orders Bupropion HCl [Bupropion HCl Sr] 150 mg PO AM #30 tablet.er 09/20/16 Clonazepam [Klonopin] 0.5 mg PO AM PRN #30 tablet MDD 2 09/21/16 Atorvastatin Ca [Lipitor] 20 mg PO HS #30 tablet 10/02/16 Metoprolol Succinate [Toprol XL -] 1 tab PO HS #30 tab 10/02/16 Darunavir/Cobicistat [Prezcobix 800 mg-150 mg Tablet] 1 each PO DAILY #30 tablet 11/13/16 Dolutegravir Sodium [Tivicay] 50 mg PO DAILY #30 tablet 11/13/16 Review of Systems - Review of Systems Constitutional: reports: Malaise, Weakness Eyes: reports: No Symptoms HENT: reports: No Symptoms Neck: reports: No Symptoms Cardiovascular: reports: No Symptoms Respiratory: reports: SOB Gastrointestinal: reports: No Symptoms Genitourinary: reports: No Symptoms Breasts: reports: No Symptoms Reported Musculoskeletal: reports: No Symptoms Integumentary: reports: No Symptoms Neurological: reports: No Symptoms Endocrine: reports: No Symptoms Hematology/Lymphatic: reports: No Symptoms Psychiatric: reports: No Symptoms Physical Examination Vital Signs: Vital Signs Temperature 97.9 F 05/18/17 09:41 Pulse Rate 55 L 05/18/17 09:41 Respiratory Rate 18 05/18/17 09:41 Blood Pressure 128/62 05/18/17 09:41 O2 Sat by Pulse Oximetry (%) 98 05/18/17 10:00 Constitutional: Yes: Well Nourished, No Distress, Calm Cardiovascular: Yes: Regular Rate and Rhythm, Murmur (Grade IV/) Respiratory: Yes: Regular Gastrointestinal: Yes: Normal Bowel Sounds, Soft Musculoskeletal: Yes: WNL Extremities: Yes: WNL Edema: No Peripheral Pulses WNL: Yes Neurological: Yes: Alert, Oriented Psychiatric: Yes: Alert, Oriented Labs: CBC, BMP 05/18/17 06:20 05/18/17 06:20 Problem List - Problems (1) AIDS Assessment/Plan: -ID consult -restart antivirals Code(s): B20 - HUMAN IMMUNODEFICIENCY VIRUS [HIV] DISEASE (2) Anemia Assessment/Plan: -PRBC's- received 2 units yesterday, to receive another 2 units -hematology consult -guaiac all stools -Iron profile, low ferritin confirms Iron def -venofer -normal transfusion parameters -monitor H/H -also deficient in Vitamin B 12- B12 injections Code(s): D64.9 - ANEMIA, UNSPECIFIED Assessment/Plan see problem list
--- NOTE | 2017-05-18 11:48 | EKG ---
Test Reason : Blood Pressure : / mmHG Vent. Rate : 072 BPM Atrial Rate : 072 BPM P-R Int : 216 ms QRS Dur : 092 ms QT Int : 408 ms P-R-T Axes : 050 -06 140 degrees QTc Int : 446 ms SINUS RHYTHM WITH 1ST DEGREE A-V BLOCK ABNORMAL ECG Confirmed by MD TOÑA, JD ([id number]) on 05/18/2017 11:47:59 AM Referred By: Confirmed By:JD DING MD
[2017-05-18] MEDS: CYANOCOBALAMIN (VITAMIN B-12) 1000 MCG/1 ML VIAL IM SCH (12:32)
--- NOTE | 2017-05-18 13:21 | CONSULT ---
Consult Consult Specialty:: Hematology Reason for Consultation:: Anemia - History of Present Illness Chief Complaint: Patient presented with symptomatic anemia. History of Present Illness: History of HIV/AIDS (last CD4 count 90 in 10/01, currently off treatment), CAD s/ p CABG, TAVR, history of GI bleed (?upper) , presented with several months weakness, chest pain and shortness of breath. Patient has lab work from [facility] in early April showing hgb of 4.3, wbc of 2.5, platelets of 104. Reports stools have been relatively normal recently - but occasionally dark, which he attributed to iron supplementation. No haematemesis. Denies haematuria , dark urine. - History Source History Provided By: Patient Limitations to Obtaining History: No Limitations - Past Medical History Cardio/Vascular: Yes: CAD, CHF, HTN, Hyperlipdemia, Other (aortic vavle replacement) Infectious Disease: Yes: HIV - Past Surgical History Past Surgical History: Yes: CABG, Valve Replacement (aortic (bioprosthetic)) - Alcohol/Substance Use Hx Alcohol Use: No - Smoking History Smoking history: Never smoked Have you smoked in the past 12 months: No If you are a former smoker, when did you quit?: 2009 Home Medications - Allergies Allergies/Adverse Reactions: Allergies Allergy/AdvReac Type Severity Reaction Status Date / Time No Known Allergies Allergy Verified 05/17/17 11:56 - Home Medications Home Medications: Ambulatory Orders Bupropion HCl [Bupropion HCl Sr] 150 mg PO AM #30 tablet.er 09/20/16 Clonazepam [Klonopin] 0.5 mg PO AM PRN #30 tablet MDD 2 09/21/16 Atorvastatin Ca [Lipitor] 20 mg PO HS #30 tablet 10/02/16 Metoprolol Succinate [Toprol XL -] 1 tab PO HS #30 tab 10/02/16 Darunavir/Cobicistat [Prezcobix 800 mg-150 mg Tablet] 1 each PO DAILY #30 tablet 11/13/16 Dolutegravir Sodium [Tivicay] 50 mg PO DAILY #30 tablet 11/13/16 Family Disease History - Family Disease History Other Family History: No hematological relevent family history. Review of Systems - Review of Systems Constitutional: denies: Fever, Loss of Appetite, Unintentional Wgt. Loss Eyes: denies: Recent Change in Vision HENT: denies: Difficult Swallowing, Epistaxis Neck: reports: No Symptoms Cardiovascular: reports: Chest Pain, Shortness of Breath Respiratory: reports: SOB on Exertion. denies: Hemoptysis, Orthopnea Gastrointestinal: reports: Diarrhea. denies: Abdominal Pain, Melena, Rectal Bleeding, Vomiting Blood Genitourinary: reports: No Symptoms Breasts: reports: No Symptoms Reported Musculoskeletal: reports: No Symptoms Integumentary: reports: No Symptoms Neurological: reports: No Symptoms Endocrine: reports: No Symptoms Hematology/Lymphatic: denies: Easily Bruised, Excessive Bleeding Physical Exam Vital Signs: Vital Signs Temperature 98.3 F 05/18/17 13:00 Pulse Rate 55 L 05/18/17 13:00 Respiratory Rate 18 05/18/17 13:00 Blood Pressure 130/62 05/18/17 13:00 O2 Sat by Pulse Oximetry (%) 98 05/18/17 10:00 Constitutional: Yes: Well Nourished Eyes: Yes: Conjunctiva Clear. No: Sclera Icterus HENT: Yes: Normocephalic Neck: Yes: Supple. No: Lymphadenopathy Cardiovascular: Yes: Regular Rate and Rhythm, Murmur, S1, S2 Respiratory: Yes: CTA Bilaterally. No: Rales, Tachypnea Gastrointestinal: Yes: Normal Bowel Sounds. No: Hepatomegaly, Palpable Mass, Splenomegaly Musculoskeletal: No: Joint Swelling Edema: No Peripheral Pulses WNL: Yes Integumentary: No: Bruising, Erythema Neurological: Yes: Alert, Oriented, Cran Nerves II-XII Intact ...Motor Strength: WNL Psychiatric: Yes: Alert, Oriented Labs: CBC, BMP 05/18/17 06:20 05/18/17 06:20 Assessment/Plan HIV positive male, off treatment, presents with severe iron deficiency anemia. Has had prior GI workup elsewhere - unclear from patient but sounds like documented upper GI source. Presently stool negative for occult blood. Agree with transfusion for symptomatic anemia. Can hold off on further RBC transfusion at this time. Estimated iron deficit at this time approximately 2g - IV iron while in hospital. GI consult. May be other elements to anemia, mild thrombocytopenia, related to untreated HIV , but can be addressed if necessary at a later stage, following resolution of his iron deficiency.
--- NOTE | 2017-05-18 19:28 | PN ---
Progress Note, Physician History of Present Illness: ID Consult dictated Severe iron deficiency anemia HIV/AIDS non- compliant with ART S/P AVR Transfuse Anemia w/u per hematology CD4 count Hold ART - Current Medication List Current Medications: Active Medications Atorvastatin Calcium (Lipitor -) 20 mg PO HS [facility] Last Admin: 05/17/17 22:06 Dose: 20 mg Bupropion HCl (Wellbutrin Xl -) 150 mg PO AM [facility] Last Admin: 05/18/17 06:51 Dose: 150 mg Clonazepam (Klonopin -) 0.5 mg PO AM PRN PRN Reason: ANXIETY Cyanocobalamin (Vitamin B12 Injection -) 1,000 mcg IM DAILY [facility] Last Admin: 05/18/17 12:32 Dose: 1,000 mcg Metoprolol Succinate (Toprol Xl -) 50 mg PO HS [facility] Last Admin: 05/17/17 22:06 Dose: 50 mg Non-Formulary Medication (Darunavir/Cobicistat [Prezcobix 800 Mg-150 Mg Tablet] ) 1 each PO DAILY [facility] Non-Formulary Medication (Dolutegravir Sodium) 50 mg PO DAILY [facility] - Objective Vital Signs: Vital Signs Temperature 98.0 F 05/18/17 17:55 Pulse Rate 53 L 05/18/17 17:55 Respiratory Rate 18 05/18/17 17:55 Blood Pressure 122/60 05/18/17 17:55 O2 Sat by Pulse Oximetry (%) 95 05/18/17 18:00 Labs: CBC, BMP 05/18/17 06:20 05/18/17 06:20 INR, PTT INR 1.10 (0.82-1.09) 05/17/17 12:47
[2017-05-18] MEDS ORDERED: ACETAMINOPHEN 325 MG TABLET (FP) PO PRN (22:11)
[2017-05-18] MEDS: ATORVASTATIN CA 20 MG TABLET (FP) PO SCH (22:16)
[2017-05-18] MEDS ORDERED: traMADol HCL 50 MG TABLET PO ONE (23:50)
[2017-05-19 06:37] LABS: SERUM IRON SATURATION 5 % (15-55); TOTAL IRON BINDING CAPACITY 421 ug/dL (250-450); UIBC 402 ug/dL (111-343)
[2017-05-19 08:17] LABS: BASO % 0.7 % (0-2.0); HEMATOCRIT 27.3 % (35.4-49); HEMOGLOBIN 8.4 GM/dL (11.7-16.9); LYMPH % 27.7 % (8-40); MCH 20.9 pg (25.7-33.7); MCHC 30.9 g/dl (32.0-35.9); MEAN CELL VOLUME 67.7 fl (80-96); MONO % 17.7 % (3.8-10.2); NEUT % 47.9 % (42.8-82.8); PLATELET COUNT 111 K/MM3 (134-434); RBC 4.03 M/mm3 (4.00-5.60); RDW 31.8 % (11.9-15.9); WHITE BLOOD COUNT 3.5 K/mm3 (4.0-10.0)
[2017-05-19 08:19] LABS: ADD RBC MORPHOLOGY YES
[2017-05-19 08:27] LABS: ALBUMIN 3.4 g/dl (3.4-5.0); ANION GAP 6 (8-16); BLOOD UREA NITROGEN 10 mg/dL (7-18); CALCIUM 7.9 mg/dL (8.5-10.1); CHLORIDE 108 mmol/L (98-107); CO2 25 mmol/L (21-32); GLUCOSE,RANDOM 81 mg/dL (74-106); POTASSIUM 4.1 mmol/L (3.5-5.1); SGOT/AST 19 U/L (15-37); SGPT/ALT 17 U/L (12-78); SODIUM 139 mmol/L (136-145)
[2017-05-19 08:30] LABS: ALK PHOS 131 U/L (45-117); BILIRUBIN,TOTAL 0.6 mg/dL (0.2-1.0); CREATININE 0.9 mg/dL (0.7-1.3); TOT PROT 6.6 g/dl (6.4-8.2)
[2017-05-19] MEDS: CYANOCOBALAMIN (VITAMIN B-12) 1000 MCG/1 ML VIAL IM SCH (09:25)
--- NOTE | 2017-05-19 11:11 | PN ---
Progress Note, Physician History of Present Illness: Awake, alert C/O dry mouth Received transfusion PRBCs - Current Medication List Current Medications: Active Medications Acetaminophen (Tylenol -) 650 mg PO Q6H PRN PRN Reason: Pain level 4-6 Last Admin: 05/18/17 22:15 Dose: 650 mg Atorvastatin Calcium (Lipitor -) 20 mg PO HS [facility] Last Admin: 05/18/17 22:16 Dose: 20 mg Bupropion HCl (Wellbutrin Xl -) 150 mg PO AM [facility] Last Admin: 05/19/17 06:28 Dose: 150 mg Clonazepam (Klonopin -) 0.5 mg PO AM PRN PRN Reason: ANXIETY Cyanocobalamin (Vitamin B12 Injection -) 1,000 mcg IM DAILY [facility] Last Admin: 05/19/17 09:25 Dose: 1,000 mcg Metoprolol Succinate (Toprol Xl -) 50 mg PO HS [facility] Last Admin: 05/18/17 22:16 Dose: 50 mg Non-Formulary Medication (Darunavir/Cobicistat [Prezcobix 800 Mg-150 Mg Tablet] ) 1 each PO DAILY [facility] Non-Formulary Medication (Dolutegravir Sodium) 50 mg PO DAILY [facility] - Objective Vital Signs: Vital Signs Temperature 98.1 F 05/19/17 10:00 Pulse Rate 51 L 05/19/17 10:00 Respiratory Rate 18 05/19/17 10:00 Blood Pressure 118/57 05/19/17 10:00 O2 Sat by Pulse Oximetry (%) 96 05/19/17 10:00 Constitutional: Yes: No Distress Eyes: Yes: Conjunctiva Clear HENT: Yes: Thrush Cardiovascular: Yes: Regular Rate and Rhythm, S1, S2 Respiratory: Yes: CTA Bilaterally Gastrointestinal: Yes: Normal Bowel Sounds, Soft. No: Tenderness Edema: No Labs: CBC, BMP 05/19/17 06:35 05/19/17 06:35 INR, PTT INR 1.10 (0.82-1.09) 05/17/17 12:47 Assessment/Plan Severe iron deficiency anemia s/p transfusion HIV/AIDS non-compliant with ART Check CD4 PCP prophylaxis Nystatin swish and swallow Outpatient follow up [facility]
[2017-05-19] MEDS: PATIENT'S OWN MEDICATION (NON-FORMULARY) (Darunavir/Cobicistat [Prezcobix 800 Mg-150 Mg Ta PO SCH ×2 (11:16→11:17)
[2017-05-19] MEDS: PATIENT'S OWN MEDICATION (NON-FORMULARY) (Dolutegravir Sodium 50 MG) PO SCH (11:17)
[2017-05-19 11:25] LABS: BASO % 0.6 % (0-2.0); EOS % 4.7 % (0-4.5); HEMATOCRIT 28.4 % (35.4-49); HEMOGLOBIN 8.6 GM/dL (11.7-16.9); LYMPH % 17.9 % (8-40); MCH 20.7 pg (25.7-33.7); MCHC 30.2 g/dl (32.0-35.9); MEAN CELL VOLUME 68.6 fl (80-96); MEAN PLT VOLUME 8.5 fl (7.5-11.1); MONO % 17.6 % (3.8-10.2); NEUT % 59.2 % (42.8-82.8); PLATELET COUNT 138 K/MM3 (134-434); RBC 4.14 M/mm3 (4.00-5.60); RDW 32.3 % (11.9-15.9); RETICULOCYTES 2.17 % (0.5-1.5); WHITE BLOOD COUNT 3.3 K/mm3 (4.0-10.0)
[2017-05-19 11:28] LABS: ADD RBC MORPHOLOGY YES
[2017-05-19] MEDS: NYSTATIN 500,000 UNITS/5 ML SUSPENSION PO SCH ×2 (11:49→17:08)
[2017-05-19] MEDS: SULFAMETHOXAZOLE/TRIMETHOPRIM 800MG/160MG D.S. TABLET PO SCH (11:49)
[2017-05-19 11:51] LABS: ANISOCYTOSIS 2+
[2017-05-19 11:52] LABS: OVALOCYTE 1+; PLATELET ESTIMATE ADEQUATE
--- NOTE | 2017-05-19 12:18 | PN ---
Progress Note, Physician Chief Complaint: Anemia History of Present Illness: NAD, -H/H improved -seen by hematology and ID -B12 and iron deficiency -Venofer -B 12 injections -Has been seen by GI in the past, -all stool guaiacs negative - Current Medication List Current Medications: Active Medications Acetaminophen (Tylenol -) 650 mg PO Q6H PRN PRN Reason: Pain level 4-6 Last Admin: 05/18/17 22:15 Dose: 650 mg Atorvastatin Calcium (Lipitor -) 20 mg PO HS [facility] Last Admin: 05/18/17 22:16 Dose: 20 mg Bupropion HCl (Wellbutrin Xl -) 150 mg PO AM [facility] Last Admin: 05/19/17 06:28 Dose: 150 mg Clonazepam (Klonopin -) 0.5 mg PO AM PRN PRN Reason: ANXIETY Cyanocobalamin (Vitamin B12 Injection -) 1,000 mcg IM DAILY [facility] Last Admin: 05/19/17 09:25 Dose: 1,000 mcg Iron Sucrose 200 mg/ Sodium (Chloride) 100 mls @ 100 mls/hr IVPB ONCE ONE Stop: 05/19/17 13:59 Metoprolol Succinate (Toprol Xl -) 50 mg PO HS [facility] Last Admin: 05/18/17 22:16 Dose: 50 mg Nystatin (Nystatin Oral Suspension -) 500,000 units PO Q6HPO [facility] Last Admin: 05/19/17 11:49 Dose: 500,000 units Trimethoprim/Sulfamethoxazole (Bactrim Ds -) 1 each PO DAILY [facility] Last Admin: 05/19/17 11:49 Dose: 1 each - Objective Vital Signs: Vital Signs Temperature 98.1 F 05/19/17 10:00 Pulse Rate 51 L 05/19/17 10:00 Respiratory Rate 18 05/19/17 10:00 Blood Pressure 118/57 05/19/17 10:00 O2 Sat by Pulse Oximetry (%) 96 05/19/17 10:00 Constitutional: Yes: Well Nourished, No Distress, Calm Cardiovascular: Yes: Regular Rate and Rhythm Respiratory: Yes: Regular Gastrointestinal: Yes: Normal Bowel Sounds, Soft Neurological: Yes: Alert, Oriented Psychiatric: Yes: Alert, Oriented Labs: CBC, BMP 05/19/17 11:12 05/19/17 06:35 INR, PTT INR 1.10 (0.82-1.09) 05/17/17 12:47 Problem List - Problems (1) AIDS Assessment/Plan: -ID consult -restart antivirals Code(s): B20 - HUMAN IMMUNODEFICIENCY VIRUS [HIV] DISEASE (2) Anemia Assessment/Plan: -PRBC's- 4 units in total -hematology consult appreciated -guaiac negative -Iron profile, low ferritin confirms Iron def -venofer -normal transfusion parameters -monitor H/H -also deficient in Vitamin B 12- B12 injections Code(s): D64.9 - ANEMIA, UNSPECIFIED Assessment/Plan see problem list
--- NOTE | 2017-05-19 12:22 | PN ---
Progress Note (short form) - Note Progress Note: Seen in follow up - feeling well - eating with appetite. Meds reviewed. Current Medications Generic Name Dose Route Start Last Admin Trade Name Freq PRN Reason Stop Dose Admin Acetaminophen 650 mg 05/18/17 22:11 05/18/17 22:15 Tylenol - PO 650 mg Q6H PRN Administration Pain level 4-6 Atorvastatin Calcium 20 mg 05/17/17 22:00 05/18/17 22:16 Lipitor - PO 20 mg HS SARAI Administration Bupropion HCl 150 mg 05/18/17 07:00 05/19/17 06:28 Wellbutrin Xl - PO 150 mg AM SARAI Administration Clonazepam 0.5 mg 05/17/17 20:13 Klonopin - PO AM PRN ANXIETY Cyanocobalamin 1,000 mcg 05/18/17 11:45 05/19/17 09:25 Vitamin B12 Injection - IM 1,000 mcg DAILY SARAI Administration Iron Sucrose 200 mg/ Sodium 100 mls @ 100 mls/hr 05/19/17 13:00 Chloride IVPB 05/19/17 13:59 ONCE ONE Metoprolol Succinate 50 mg 05/17/17 22:00 05/18/17 22:16 Toprol Xl - PO 50 mg HS SARAI Administration Nystatin 500,000 units 05/19/17 12:00 05/19/17 11:49 Nystatin Oral Suspension - PO 500,000 units Q6HPO SARAI Administration Pantoprazole Sodium 20 mg 05/19/17 12:30 Protonix - PO DAILY SARAI Trimethoprim/Sulfamethoxazole 1 each 05/19/17 11:15 05/19/17 11:49 Bactrim Ds - PO 1 each DAILY SARAI Administration Physical Exam Last Vital Signs Temp Pulse Resp BP Pulse Ox 98.1 F 51 L 18 118/57 96 05/19/17 10:00 05/19/17 10:00 05/19/17 10:00 05/19/17 10:00 05/19/17 10:00 General: Ambulant, well looking. Extremities: Symmetrical, no obvious swelling. Chest:good AE bilaterally, clear Abdomen: Soft, no organomegaly, no masses. Neuro: Alert, oriented, non-focal. CVS: Normal sinus rhythm, S1, S2, no gallop or murmur. Assessment/Plan HIV positive male, off treatment, presents with severe iron deficiency anemia. Has had prior GI workup elsewhere - unclear from patient but sounds like documented upper GI source. Presently stool negative for occult blood. Agree with transfusion for symptomatic anemia. Can hold off on further RBC transfusion at this time. Estimated iron deficit at this time approximately 2g - IV iron while in hospital. GI consult. May be other elements to anemia, mild thrombocytopenia, related to untreated HIV , but can be addressed if necessary at a later stage, following resolution of his iron deficiency.
[2017-05-19] MEDS ORDERED: IRON SUCROSE INJECTION 200 MG in SODIUM CHLORIDE 90 ML IVPB ONE (13:00)
[2017-05-19] MEDS: PANTOPRAZOLE 20 MG TABLET (FP) PO SCH (13:26)
--- NOTE | 2017-05-19 14:47 | CONS ---
DATE OF CONSULTATION: 05/18/2017 HISTORY: This is a 67-year-old male with a history of cardiorenal deficiency syndrome and known history of chronic anemia evaluated for severe anemia. The patient presented to the hospital on May 17, 2017 with symptomatic anemia. He had developed chest pain, shortness of breath, and dizziness. He was noted to have a hemoglobin of 4. The patient denied any rectal bleeding. He was admitted to the hospital and transfused. The patient has a long history of anemia. He was seen in the clinic last year and was referred to [facility]emat[facility]. The patient states that he has been in [place] for the past several months. He returned to the [place] on May 16, [place]. He has been noncompliant with his antiretroviral therapy. I contacted his pharmacy in [place], and they confirmed that he has not filled the prescription for his antiretroviral therapy since October of last year. His most recent viral markers from September 2016 showed an undetectable viral load and a T cell count of 90. PAST MEDICAL HISTORY: Positive for acquired immunodeficiency syndrome, history of gastrointestinal bleeding, coronary artery disease. PAST SURGICAL HISTORY: Status post coronary artery bypass and aortic valve replacement. ALLERGIES: No known allergies. MEDICATIONS: Bupropion, Klonopin, Lipitor, Toprol, Tivicay, and Preszobix. SOCIAL HISTORY: Denies tobacco or alcohol use. SYSTEMS REVIEW: Neurologic: No loss of consciousness, seizure activity, or focal weakness. Cardiac: As per HPI. Respiratory: As per HPI. Gastrointestinal: Negative vomiting or diarrhea. Genitourinary: Negative for urinary tract infection. LABORATORY DATA: On admission, white count 1.6 with 51 neutrophils, 21 lymphocytes, 18 monocytes, hematocrit 15.3, platelets 129, MCV 56, iron 19, BUN 17, creatinine 0.8. PHYSICAL EXAMINATION: General: He is awake and alert. He is not acutely toxic appearing. Vital Signs: Temperature 97.9, blood pressure 128/62, pulse 55 and regular, respirations 20 per minute. Skin: The patient appears pale. Neck: Supple. Heart: Sounds S1, S2. Lungs: Clear. Abdomen: Soft. No tenderness elicited. No mass, rebound, or rigidity. Extremities: Negative for edema. IMPRESSION: 1. Severe iron-deficiency anemia. 2. Acquired immunodeficiency syndrome with a history of noncompliance. 3. Status post aortic valve replacement. PLAN: Transfuse as per Hematology. Obtain CD4 lymphocyte count. Bactrim prophylaxis. We will hold antiretroviral therapy as he has been noncompliant for several months. We will refer the patient to [facility] for follow up post hospital discharge. Anemia workup as per Hematology. Thank you for the kind referral. GEENA LANDRUM M.D. [id number]
[2017-05-19] MEDS: ATORVASTATIN CA 20 MG TABLET (FP) PO SCH (21:15)
[2017-05-20] MEDS: NYSTATIN 500,000 UNITS/5 ML SUSPENSION PO SCH ×4 (00:07→17:04)
[2017-05-20 06:56] LABS: BASO % 0.7 % (0-2.0); EOS % 6.8 % (0-4.5); HEMATOCRIT 30.6 % (35.4-49); HEMOGLOBIN 9.1 GM/dL (11.7-16.9); LYMPH % 17.7 % (8-40); MCH 20.8 pg (25.7-33.7); MCHC 29.8 g/dl (32.0-35.9); MEAN CELL VOLUME 69.7 fl (80-96); MEAN PLT VOLUME 9.3 fl (7.5-11.1); MONO % 13.5 % (3.8-10.2); NEUT % 61.3 % (42.8-82.8); PLATELET COUNT 118 K/MM3 (134-434); RBC 4.39 M/mm3 (4.00-5.60); RDW 32.8 % (11.9-15.9); WHITE BLOOD COUNT 3.5 K/mm3 (4.0-10.0)
[2017-05-20 07:39] LABS: ALBUMIN 3.6 g/dl (3.4-5.0); ANION GAP 7 (8-16); BILIRUBIN,TOTAL 0.7 mg/dL (0.2-1.0); BLOOD UREA NITROGEN 12 mg/dL (7-18); CALCIUM 8.3 mg/dL (8.5-10.1); CHLORIDE 105 mmol/L (98-107); CO2 25 mmol/L (21-32); CREATININE 0.9 mg/dL (0.7-1.3); GLUCOSE,RANDOM 82 mg/dL (74-106); POTASSIUM 4.3 mmol/L (3.5-5.1); SGOT/AST 24 U/L (15-37); SGPT/ALT 19 U/L (12-78); SODIUM 137 mmol/L (136-145); TOT PROT 7.2 g/dl (6.4-8.2)
[2017-05-20 07:40] LABS: ALK PHOS 145 U/L (45-117)
[2017-05-20] MEDS: CYANOCOBALAMIN (VITAMIN B-12) 1000 MCG/1 ML VIAL IM SCH (09:27)
[2017-05-20] MEDS: PANTOPRAZOLE 20 MG TABLET (FP) PO SCH (09:27)
[2017-05-20] MEDS: SULFAMETHOXAZOLE/TRIMETHOPRIM 800MG/160MG D.S. TABLET PO SCH (09:28)
--- NOTE | 2017-05-20 10:47 | DS ---
Physical Examination Vital Signs: Vital Signs Temperature 97.5 F L 05/20/17 09:00 Pulse Rate 50 L 05/20/17 09:00 Respiratory Rate 20 05/20/17 09:00 Blood Pressure 138/67 05/20/17 09:00 O2 Sat by Pulse Oximetry (%) 97 05/20/17 10:00 Constitutional: Yes: Calm Cardiovascular: Yes: Regular Rate and Rhythm, S1, S2 Respiratory: Yes: CTA Bilaterally Gastrointestinal: Yes: Normal Bowel Sounds, Soft Edema: No Neurological: Yes: Alert, Oriented Labs: CBC, BMP 05/20/17 05:35 05/20/17 05:35 Discharge Summary Reason For Visit: ANEMIA Current Active Problems Anemia (Chronic) Hospital Course: PCP: Kizzy Cobos - Admission Chief Complaint: Anemia History of Present Illness: Patient is a 67M with history of HIV/AIDS (last CD4 count 90 in 10/01, not on HAART, not taking bactrim), CAD s/p CABG, s/p mechanical aortic valve replacement, recurrent GI bleed here today complaining of months of weakness, chest pain and shortness of breath. Patient has lab work from [facility] in early April showing hgb of 4.3, wbc of 2.5, platelets of 104. Patient also states that he's had several episodes of diarrhea. Denies fevers, chills, nausea, vomiting. Denies recent antibiotics use. History Source: Patient Limitations to Obtaining History: No Limitations - Past Medical History Cardiovascular: Yes: CAD, CHF, HTN, Hyperlipdemia, Other (aortic vavle replacement) Infectious Disease: Yes: HIV - Past Surgical History Past Surgical History: Yes: CABG, Valve Replacement (aortic (bioprosthetic)) - Smoking History Smoking history: Never smoked Have you smoked in the past 12 months: No If you are a former smoker, when did you quit?: 2009 - Alcohol/Substance Use Hx Alcohol Use: No patient seen by GI and heme: got iv venofer 2 doses and 4 units PRBC and [id number]- ferrous sulfate h/h improved from 4 to 9 got 3 shots of [id number] change to po b12 Condition: Stable - Instructions Diet, Activity, Other Instructions: -Follow up at [facility]- Dr Rob Fernández -Follow up with Kavon Parry- hematology -Follow up with Connor Tomas- Gastroenterology -Bactrim DS 1 tab 2 x day for -Ferrous sulfate 1 tab 2 day -Vitamin B 12 Sublingual 5000 mcg daily Referrals: Kizzy Cobos MD [Primary Care Provider] - Rob Fernández MD [Staff Physician] - Connor Pardo MD [Staff Physician] - Kavon Olivia MD [Staff Physician] - Disposition: HOME - Home Medications Comprehensive Discharge Medication List: Ambulatory Orders Bupropion HCl [Bupropion HCl Sr] 150 mg PO AM #30 tablet.er 09/20/16 Clonazepam [Klonopin] 0.5 mg PO AM PRN #30 tablet MDD 2 09/21/16 Atorvastatin Ca [Lipitor] 20 mg PO HS #30 tablet 10/02/16 Metoprolol Succinate [Toprol XL -] 1 tab PO HS #30 tab 10/02/16 Darunavir/Cobicistat [Prezcobix 800 mg-150 mg Tablet] 1 each PO DAILY #30 tablet 11/13/16 Dolutegravir Sodium [Tivicay] 50 mg PO DAILY #30 tablet 11/13/16
--- NOTE | 2017-05-20 10:49 | PN ---
Progress Note (short form) - Note Progress Note: will discuss with drug abuse social worker about dc planning patient has no place to go.discharge planning in process cardiology to see him bc history of aortic valve replacement HIV meds per ID
--- NOTE | 2017-05-20 11:12 | PN ---
Progress Note, Physician Chief Complaint: ID Discharge planning major issue now HE is off his HIV meds - Current Medication List Current Medications: Active Medications Acetaminophen (Tylenol -) 650 mg PO Q6H PRN PRN Reason: Pain level 4-6 Last Admin: 05/18/17 22:15 Dose: 650 mg Atorvastatin Calcium (Lipitor -) 20 mg PO HS [facility] Last Admin: 05/19/17 21:15 Dose: 20 mg Bupropion HCl (Wellbutrin Xl -) 150 mg PO AM [facility] Last Admin: 05/20/17 06:02 Dose: 150 mg Clonazepam (Klonopin -) 0.5 mg PO AM PRN PRN Reason: ANXIETY Cyanocobalamin (Vitamin B12 Injection -) 1,000 mcg IM DAILY [facility] Last Admin: 05/20/17 09:27 Dose: 1,000 mcg Iron Sucrose 200 mg/ Sodium (Chloride) 100 mls @ 100 mls/hr IVPB ONCE ONE Stop: 05/20/17 12:29 Metoprolol Succinate (Toprol Xl -) 50 mg PO [facility] Last Admin: 05/19/17 21:14 Dose: 50 mg Nystatin (Nystatin Oral Suspension -) 500,000 units PO Q6HPO [facility] Last Admin: 05/20/17 06:01 Dose: 500,000 units Pantoprazole Sodium (Protonix -) 20 mg PO DAILY [facility] Last Admin: 05/20/17 09:27 Dose: 20 mg Trimethoprim/Sulfamethoxazole (Bactrim Ds -) 1 each PO DAILY [facility] Last Admin: 05/20/17 09:28 Dose: 1 each - Objective Vital Signs: Vital Signs Temperature 97.5 F L 05/20/17 09:00 Pulse Rate 50 L 05/20/17 09:00 Respiratory Rate 20 05/20/17 09:00 Blood Pressure 138/67 05/20/17 09:00 O2 Sat by Pulse Oximetry (%) 97 05/20/17 10:00 Constitutional: Yes: No Distress Neck: Yes: WNL, Supple Cardiovascular: Yes: S1, S2 Respiratory: Yes: WNL, Regular, CTA Bilaterally Gastrointestinal: Yes: WNL, Normal Bowel Sounds, Soft. No: Tenderness, Tenderness, Epigastrium Edema: No Labs: CBC, BMP 05/20/17 05:35 05/20/17 05:35 INR, PTT INR 1.10 (0.82-1.09) 05/17/17 12:47 Assessment/Plan Laboratory Tests 05/20/17 05/20/17 05/20/17 05:35 05:35 05:35 WBC 3.5 L Plt Count 118 L BUN 12 Creatinine 0.9 Absolute CD4 [place] Pending Assessment History of Aortic valve replacement History of GI bleeding previously seen by Dr Pardo now recently changed practices AIDS off his medication Homeless apparently Plan Will get his HIV meds filled and his family can get for him here Cardiology evaluation for his his CAD CABG and valve replacement Placement Pradeep KEENE
[2017-05-20] MEDS ORDERED: IRON SUCROSE INJECTION 200 MG in SODIUM CHLORIDE 90 ML IVPB ONE (11:30)
--- NOTE | 2017-05-20 14:15 | CON.CARD ---
Consult Consult Specialty:: cardiology Referred by:: Papito Reason for Consultation:: Chest pain and generalized weakness - History of Present Illness Chief Complaint: Generalized weakness and chest discomfort History of Present Illness: The patient is a 67-year-old man,HIV+,HAART, history of aortic valve replacement (questionable coronary artery disease) recurrent GI bleed, now admitted with generalized weakness and chest discomfort, and anemia. The patient is currently comfortable. The chest pain is partially reproducible. Denied any other associated symptoms. - History Source History Provided By: Patient, Medical Record Limitations to Obtaining History: No Limitations - Past Medical History Cardio/Vascular: Yes: CAD, CHF, HTN, Hyperlipdemia, Other (aortic vavle replacement) Infectious Disease: Yes: HIV - Past Surgical History Past Surgical History: Yes: CABG, Valve Replacement (aortic (bioprosthetic)) - Alcohol/Substance Use Hx Alcohol Use: No - Smoking History Smoking history: Never smoked Have you smoked in the past 12 months: No If you are a former smoker, when did you quit?: 2009 Home Medications - Allergies Allergies/Adverse Reactions: Allergies Allergy/AdvReac Type Severity Reaction Status Date / Time No Known Allergies Allergy Verified 05/17/17 11:56 - Home Medications Home Medications: Ambulatory Orders Bupropion HCl [Bupropion HCl Sr] 150 mg PO AM #30 tablet.er 09/20/16 Clonazepam [Klonopin] 0.5 mg PO AM PRN #30 tablet MDD 2 09/21/16 Metoprolol Succinate [Toprol XL -] 1 tab PO HS #30 tab 10/02/16 Atorvastatin Ca [Lipitor] 20 mg PO HS #30 tablet 05/20/17 Cyanocobalamin [Vitamin B12 -] 2,000 mcg PO DAILY #14 tablet 05/20/17 Darunavir/Cobicistat [Prezcobix 800 mg-150 mg Tablet] 1 each PO DAILY #30 tablet 05/20/17 Dolutegravir Sodium [Tivicay] 50 mg PO DAILY #30 tablet 05/20/17 Ferrous Sulfate 325 mg PO BID #60 tablet MDD 2 05/20/17 Sulfamethoxazole/Trimethoprim [Bactrim DS -] 1 each PO DAILY #30 tablet MDD 1 Sulfamethoxazole/Trimethoprim [Bactrim Ds -] 1 tab PO DAILY #30 tablet 05/20/17 Family Disease History - Family Disease History Other Family History: No hematological relevent family history. Review of Systems - Review of Systems Constitutional: reports: No Symptoms Eyes: reports: No Symptoms HENT: reports: No Symptoms Neck: reports: No Symptoms Cardiovascular: reports: No Symptoms Respiratory: reports: No Symptoms Gastrointestinal: reports: No Symptoms Genitourinary: reports: No Symptoms Breasts: reports: No Symptoms Reported Musculoskeletal: reports: No Symptoms Integumentary: reports: No Symptoms Neurological: reports: No Symptoms Endocrine: reports: No Symptoms Hematology/Lymphatic: reports: No Symptoms Psychiatric: reports: No Symptoms Vital Signs: Vital Signs Temperature 97.5 F L 05/20/17 09:00 Pulse Rate 50 L 05/20/17 09:00 Respiratory Rate 20 05/20/17 09:00 Blood Pressure 138/67 05/20/17 09:00 O2 Sat by Pulse Oximetry (%) 97 05/20/17 10:00 Constitutional: Yes: Well Nourished, No Distress, Calm, Severe Distress Eyes: Yes: WNL, Conjunctiva Clear HENT: Yes: WNL, Atraumatic, Normocephalic Neck: Yes: WNL, Supple, Trachea Midline Respiratory: Yes: WNL, Regular, CTA Bilaterally Gastrointestinal: Yes: WNL, Normal Bowel Sounds, Soft Renal/: Yes: WNL Cardiovascular: Yes: WNL, Regular Rate and Rhythm JVD: No Carotid Bruit: No PMI: Non-Displaced Heart Sounds: Yes: S1, S2 Murmur: Yes: Systolic Murmur, Grade 2 Musculoskeletal: Yes: WNL Extremities: Yes: WNL Edema: No Peripheral Pulses WNL: Yes Peripheral Pulses: 2+ Left Carotid, 2+ Right Carotid, 2+ Left Femoral, 2+ Right Femoral, 2+ Left Popliteal, 2+ Right Popliteal, 2+ Left Doralis Pedis, 2+ Right Dorsalis Pedis Integumentary: Yes: WNL Neurological: Yes: WNL, Alert, Oriented ...Motor Strength: WNL Psychiatric: Yes: WNL - Other Data Labs, Other Data: CBC, BMP 05/20/17 05:35 05/20/17 05:35 INR, PTT INR 1.10 (0.82-1.09) 05/17/17 12:47 Assessment/Plan 67-year-old man presenting with generalized weakness and fatigue, with severe anemia, hemoglobin was 4 on admission. The patient also had some chest discomfort. Symptoms were partially reproducible. There is no evidence of ischemia nor acute coronary syndrome. The ECG showed normal sinus rhythm, with first-degree AV block, left ventricular hypertrophy and repolarization abnormalities. The patient's symptoms improved after blood transfusions. He is currently comfortable and reports no further issues. Please arrange for an echocardiogram to evaluate left ventricular systolic function and the prostatic aortic valve. \Continue current regimen. There is no need for further cardiac workup at this point. The patient is stable.
[2017-05-20] MEDS: ATORVASTATIN CA 20 MG TABLET (FP) PO SCH (21:27)
[2017-05-21] MEDS: NYSTATIN 500,000 UNITS/5 ML SUSPENSION PO SCH ×3 (00:03→15:45)
--- NOTE | 2017-05-21 06:37 | PN ---
Progress Note (short form) - Note Progress Note: Seen in follow up on 05/20/17 Denies any complaints Meds /labs reviewed. Physical Exam AFVSS General: Ambulant, well looking. Extremities: Symmetrical, no obvious swelling. Chest:good AE bilaterally, clear Abdomen: Soft, no organomegaly, no masses. Neuro: Alert, oriented, non-focal. CVS: Normal sinus rhythm, S1, S2, no gallop or murmur. Assessment/Plan HIV positive male, off treatment, presents with severe iron deficiency anemia. Has had prior GI workup elsewhere - unclear from patient but sounds like documented upper GI source. Presently stool negative for occult blood. s/p transfusion for symptomatic anemia. GI consulted -- Dr. Gordon received 700mg IV iron so far May be other elements to anemia, mild thrombocytopenia, related to untreated HIV , Monitor
[2017-05-21] MEDS: CYANOCOBALAMIN (VITAMIN B-12) 1000 MCG/1 ML VIAL IM SCH (09:46)
[2017-05-21] MEDS: SULFAMETHOXAZOLE/TRIMETHOPRIM 800MG/160MG D.S. TABLET PO SCH (09:46)
[2017-05-21] MEDS: PANTOPRAZOLE 20 MG TABLET (FP) PO SCH (09:46)
--- NOTE | 2017-05-21 10:45 | PN ---
Progress Note, Physician Chief Complaint: Anemia History of Present Illness: NAD, -H/H improved -seen by hematology and ID -B12 and iron deficiency -Venofer -B 12 injections -Has been seen by GI in the past, Dr Pardo -all stool guaiacs negative - Current Medication List Current Medications: Active Medications Acetaminophen (Tylenol -) 650 mg PO Q6H PRN PRN Reason: Pain level 4-6 Last Admin: 05/18/17 22:15 Dose: 650 mg Atorvastatin Calcium (Lipitor -) 20 mg PO HS [facility] Last Admin: 05/20/17 21:27 Dose: 20 mg Bupropion HCl (Wellbutrin Xl -) 150 mg PO AM [facility] Last Admin: 05/21/17 06:19 Dose: 150 mg Clonazepam (Klonopin -) 0.5 mg PO AM PRN PRN Reason: ANXIETY Cyanocobalamin (Vitamin B12 Injection -) 1,000 mcg IM DAILY [facility] Last Admin: 05/21/17 09:46 Dose: 1,000 mcg Metoprolol Succinate (Toprol Xl -) 50 mg PO HS [facility] Last Admin: 05/20/17 21:28 Dose: 50 mg Nystatin (Nystatin Oral Suspension -) 500,000 units PO Q6HPO [facility] Last Admin: 05/21/17 05:46 Dose: 500,000 units Pantoprazole Sodium (Protonix -) 20 mg PO DAILY [facility] Last Admin: 05/21/17 09:46 Dose: 20 mg Trimethoprim/Sulfamethoxazole (Bactrim Ds -) 1 each PO DAILY [facility] Last Admin: 05/21/17 09:46 Dose: 1 each - Objective Vital Signs: Vital Signs Temperature 97.9 F 05/21/17 06:00 Pulse Rate 51 L 05/21/17 06:00 Respiratory Rate 20 05/21/17 06:00 Blood Pressure 126/60 05/21/17 06:00 O2 Sat by Pulse Oximetry (%) 96 05/21/17 02:00 Constitutional: Yes: Well Nourished, No Distress, Calm Cardiovascular: Yes: Regular Rate and Rhythm Respiratory: Yes: Regular Gastrointestinal: Yes: Normal Bowel Sounds, Soft Musculoskeletal: Yes: WNL Extremities: Yes: WNL Edema: No Peripheral Pulses WNL: Yes Neurological: Yes: Alert, Oriented Psychiatric: Yes: Alert, Oriented Labs: CBC, BMP 03/05/18 05:35 05/20/17 05:35 INR, PTT INR 1.10 (0.82-1.09) 05/17/17 12:47 Problem List - Problems (1) AIDS Assessment/Plan: -ID consult -restart antivirals -Unable to have access to medications due to cost -will follow up at [facility] outpt -Will apply for medicaid after meeting with SW at [facility] Code(s): B20 - HUMAN IMMUNODEFICIENCY VIRUS [HIV] DISEASE (2) Anemia Assessment/Plan: -PRBC's- 4 units in total -hematology consult appreciated -guaiac negative -Iron profile, low ferritin confirms Iron def -venofer -normal transfusion parameters -monitor H/H -also deficient in Vitamin B 12- B12 injections Code(s): D64.9 - ANEMIA, UNSPECIFIED Assessment/Plan see problem list
--- NOTE | 2017-05-21 11:50 | PN ---
Progress Note, Physician Chief Complaint: Feels well today No chest pain or sob Weakness improved History of Present Illness: The patient is a 67-year-old man,HIV+,HAART, history of aortic valve replacement (questionable coronary artery disease) recurrent GI bleed, now admitted with generalized weakness and chest discomfort, and anemia. The patient is currently comfortable. The chest pain is partially reproducible. Denied any other associated symptoms. - Current Medication List Current Medications: Active Medications Acetaminophen (Tylenol -) 650 mg PO Q6H PRN PRN Reason: Pain level 4-6 Last Admin: 05/18/17 22:15 Dose: 650 mg Atorvastatin Calcium (Lipitor -) 20 mg PO HS [facility] Last Admin: 05/20/17 21:27 Dose: 20 mg Bupropion HCl (Wellbutrin Xl -) 150 mg PO AM [facility] Last Admin: 05/21/17 06:19 Dose: 150 mg Clonazepam (Klonopin -) 0.5 mg PO AM PRN PRN Reason: ANXIETY Cyanocobalamin (Vitamin B12 Injection -) 1,000 mcg IM DAILY [facility] Last Admin: 05/21/17 09:46 Dose: 1,000 mcg Metoprolol Succinate (Toprol Xl -) 50 mg PO HS [facility] Last Admin: 05/20/17 21:28 Dose: 50 mg Nystatin (Nystatin Oral Suspension -) 500,000 units PO Q6HPO [facility] Last Admin: 05/21/17 05:46 Dose: 500,000 units Pantoprazole Sodium (Protonix -) 20 mg PO DAILY [facility] Last Admin: 05/21/17 09:46 Dose: 20 mg Trimethoprim/Sulfamethoxazole (Bactrim Ds -) 1 each PO DAILY [facility] Last Admin: 05/21/17 09:46 Dose: 1 each - Objective Vital Signs: Vital Signs Temperature 98.4 F 05/21/17 10:00 Pulse Rate 45 L 05/21/17 10:00 Respiratory Rate 20 05/21/17 10:00 Blood Pressure 118/68 05/21/17 10:00 O2 Sat by Pulse Oximetry (%) 96 05/21/17 10:00 Constitutional: Yes: No Distress Neck: Yes: WNL Cardiovascular: Yes: Regular Rate and Rhythm, Murmur (+2/6 HSM upper sternal border), S1, S2. No: JVD Respiratory: Yes: CTA Bilaterally Gastrointestinal: Yes: Soft Edema: No Labs: CBC, BMP 05/20/17 05:35 05/20/17 05:35 INR, PTT INR 1.10 (0.82-1.09) 05/17/17 12:47 Assessment/Plan The patient is a 67-year-old man,HIV+,HAART, history of aortic valve replacement (questionable coronary artery disease) recurrent GI bleed, now admitted with generalized weakness and chest discomfort, and anemia. -Patient had some atypical reproducible chest pain on admission. Currently feels well. CE's negative No signs of CHF on exam Vitals stable Significant iron deficiency anemia with Hgb 4 on admission s/p several units pRBC with improvement of weakness. Rec's as per hematology. No further cardiac work up at this time. 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
[2017-05-21 14:40] VITALS: TEMP 98.2
[2017-05-21 15:44] VITALS: BP 115/70; PULSE 52
== END 2017-05-21 15:57 | disposition home or self-care (01) | DRG 977 ==
LOC: JER 11:31 → JERBED 16:15 → J7W 19:15 → OBSVTOIN 05-21 10:05
PROVIDERS: ADMIT Family Medicine; ATTEND Family Medicine
PROC: 30233H1 Transfusion of Nonautologous Whole Blood into Peripheral Vein, Percutaneous Approach (ICD-10-PCS; principal; 2017-05-17)
DX: D50.9 Iron deficiency anemia, unspecified (principal); B20 Human immunodeficiency virus [HIV] disease; Z95.1 Presence of aortocoronary bypass graft; Z95.4 Presence of other heart-valve replacement; I44.0 Atrioventricular block, first degree; I25.10 Atherosclerotic heart disease of native coronary artery without angina pectoris; Z91.14 Patient's other noncompliance with medication regimen; Z59.0 Homelessness; R07.9 Chest pain, unspecified
CPT/HCPCS: 36415; 36430; 71045-TC-FY; 80053; 82248; 82272; 82550; 82607; 82728; 82746; 83540; 83550; 83735; 84439; 84443; 84484; 85025; 85044; 85610; 86359; 86360; 86850; 86900; 86901; 86922; 93005; 93010; 97116-GP; 97161-GP; 99284-25; G0378; J1756; P9038; P9058

== ENCOUNTER 2017-05-23 14:24 | Inpatient (IN) | payer OTHER ==
[2017-05-23 14:34] VITALS: BMI 29.6
--- NOTE | 2017-05-23 14:49 | PDOC ---
History of Present Illness - General Chief Complaint: Redness To Affected Area Stated Complaint: PAIN Time Seen by Provider: 05/23/17 14:49 - History of Present Illness Initial Comments: 05/23/17 14:51 Mr. Villagran is a 67 yo male w/ pmh of HIV/AIDS, last CD4 count 32 (05/20/17), CAD s/p CABG, s/p mechanical aortic valve, with recurrent GI bleed and anemia recently come from [facility] and recently discharged from this hospital 05/17/17- (admission for severe anemia) who presents complaining of a 2 day history of redness, warmth, pain, and swelling on his left arm where his IV was placed during his prior visit. He reports this started the evening he was discharged and has progressed since then. He has no other complaints at this time. The patient denies chest pain, shortness of breath, headache and dizziness. Denies fever, chills, nausea, vomit, diarrhea and constipation. Denies dysuria, frequency, urgency and hematuria. Allergies: NKDA Past History - Past Medical History Allergies/Adverse Reactions: Allergies Allergy/AdvReac Type Severity Reaction Status Date / Time No Known Allergies Allergy Verified 05/23/17 14:30 Home Medications: Ambulatory Orders Bupropion HCl [Bupropion HCl Sr] 150 mg PO AM #30 tablet.er 09/20/16 Clonazepam [Klonopin] 0.5 mg PO AM PRN #30 tablet MDD 2 09/21/16 Metoprolol Succinate [Toprol XL -] 1 tab PO HS #30 tab 10/02/16 Atorvastatin Ca [Lipitor] 20 mg PO HS #30 tablet 05/20/17 Darunavir/Cobicistat [Prezcobix 800 mg-150 mg Tablet] 1 each PO DAILY #30 tablet 05/20/17 Dolutegravir Sodium [Tivicay] 50 mg PO DAILY #30 tablet 05/20/17 Ferrous Sulfate 325 mg PO BID #60 tablet MDD 2 05/20/17 Sulfamethoxazole/Trimethoprim [Bactrim DS -] 1 each PO DAILY #30 tablet MDD 1 Cyanocobalamin (Vitamin B-12) [B-12] 5,000 mcg SL DAILY #30 tab.subl 05/21/17 Anemia: No Asthma: No Cancer: No Cardiac Disorders: Yes (valve replacement) CVA: No COPD: No CHF: No (Need clariification) DVT: No Dementia: No Diabetes: No GI Disorders: Yes (tarry stool, + Deuodinitis and one nonbleeding angioectas) Disorders: No HTN: Yes Hypercholesterolemia: No Liver Disease: No Psychiatric Problems: Yes (ANXIETY DEPRESSION) Seizures: No Thyroid Disease: No - Surgical History Abdominal Surgery: No Appendectomy: No Cardiac Surgery: Yes ([facility] Cardothoracic Surgery - Dr. Reese Garcia MD Aortic Sten) Cholecystectomy: No Lung Surgery: No - Immunization History Immunization Up to Date: Yes - Suicide/Smoking/Psychosocial Hx Smoking History: Never smoked Have you smoked in the past 12 months: No If you are a former smoker, when did you quit?: 2009 Hx Alcohol Use: No Drug/Substance Use Hx: No Substance Use Type: None Hx Substance Use Treatment: No Review of Systems - Review of Systems Comments:: 05/23/17 14:51 GENERAL/CONSTITUTIONAL: No fever or chills. No weakness. HEAD, EYES, EARS, NOSE AND THROAT: No change in vision. No ear pain or discharge. No sore throat. CARDIOVASCULAR: No chest pain or shortness of breath RESPIRATORY: No cough, wheezing, or hemoptysis. GASTROINTESTINAL: No nausea, vomiting, diarrhea or constipation. GENITOURINARY: No dysuria, frequency, or change in urination. MUSCULOSKELETAL: +Left forearm pain, swelling, redness, and warmth with insidious onset over the last 2 days. SKIN: No rash NEUROLOGIC: No headache, vertigo, loss of consciousness, or change in strength/ sensation. ENDOCRINE: No increased thirst. No abnormal weight change HEMATOLOGIC/LYMPHATIC: No anemia, easy bleeding, or history of blood clots. ALLERGIC/IMMUNOLOGIC: No hives or skin allergy. *Physical Exam - Vital Signs Last Vital Signs Temp Pulse Resp BP Pulse Ox 97.3 F L 61 18 147/72 99 05/23/17 14:30 05/23/17 14:30 05/23/17 14:30 05/23/17 14:30 05/23/17 14:30 - Physical Exam Comments: 05/23/17 14:51 GENERAL: Awake, alert, and fully oriented, in no acute distress HEAD: No signs of trauma, normocephalic, atraumatic EYES: PERRLA, EOMI, sclera anicteric, conjunctiva clear ENT: Auricles normal inspection, hearing grossly normal, nares patent, oropharynx clear without exudates. Moist mucosa NECK: Normal ROM, supple, no lymphadenopathy, JVD, or masses LUNGS: No distress, speaks full sentences, clear to auscultation bilaterally HEART: Regular rate and rhythm, normal S1 and S2, no murmurs, rubs or gallops, peripheral pulses normal and equal bilaterally. ABDOMEN: Soft, nontender, normoactive bowel sounds. No guarding, no rebound. No masses EXTREMITIES: +Erythematous, red, warm, swollen, tender to palpation area approximately 5cm in diameter on dorsum of left forearm. NEUROLOGICAL: Cranial nerves II through XII grossly intact. Normal speech, normal gait, no focal sensorimotor deficits SKIN: Warm, Dry, normal turgor, no rashes or lesions noted. ED Treatment Course - LABORATORY CBC & Chemistry Diagram: 05/24/17 07:00 05/24/17 07:00 Medical Decision Making - Medical Decision Making 05/23/17 16:52 Mr. Tyshawn Szymanski is a 89 yo male w/ pmh as described who presents for evaluation of arm pain/redness as described. CBC/CMP/EKG/CXR/US sent for evaluation as patient at risk given immunocompromised status. EKG: sinus bradycardia noted with T wave inversions in avr, avl, ekg grossly unchanged from previous. Normal access, normal interval. CBC/CMP as below. Patient US revealed patent vessels. Believe this to be cellulitic process only over thrombophlebitis. PCP paged for admission given patient's recent admission and recent low CD4 count. Discussed patient with Dr. Lanier who recommended vancomycin, blood cultures due to prosthetic valve, and admission for further workup. Inpatient team paged for admission. Patient signed out to Dr. Pedro for further evaluation. Laboratory Results - last 24 hr 05/23/17 05/23/17 16:12 16:12 WBC 3.4 L RBC 4.71 Hgb 10.4 L D Hct 34.4 L MCV 73.0 L MCH 22.0 L MCHC 30.1 L RDW 36.7 H Plt Count 116 L MPV 8.9 Neutrophils % 58.6 Lymphocytes % 19.6 Monocytes % 18.4 H Eosinophils % 3.1 Basophils % 0.3 Hypochromia 1+ Platelet Estimate Slt decrease Platelet Comment Polychromasia 1+ Poikilocytosis 1+ Anisocytosis 3+ Microcytosis 1+ Macrocytosis 1+ Ovalocytes 1+ Sodium 137 Potassium 4.4 Chloride 104 Carbon Dioxide 25 Anion Gap 8 BUN 20 H D Creatinine 1.0 Creat Clearance w eGFR > 60 Random Glucose 85 Calcium 8.7 Total Bilirubin 0.8 AST 38 H D ALT 35 D Alkaline Phosphatase 155 H Total Protein 8.0 Albumin 4.1 05/23/17 19:10 *DC/Admit/Observation/Transfer Diagnosis at time of Disposition: Cellulitis Qualifiers: Site of cellulitis: other site Qualified Code(s): L03.818 - Cellulitis of other sites - Discharge Dispostion Condition at time of disposition: Guarded - Referrals - Patient Instructions - Post Discharge Activity
[2017-05-23] MEDS ORDERED: VANCOMYCIN 1,000 MG in DEXTROSE 5%-WATER - 250 ML IVPB ONE (16:38)
--- NOTE | 2017-05-23 16:38 | PDOC ---
Attending Attestation - Resident Resident Name: [email or web address] - ED Attending Attestation I have performed the following: I have examined & evaluated the patient, The case was reviewed & discussed with the resident, I agree w/resident's findings & plan, Exceptions are as noted - HPI HPI: 05/23/17 18:12 67yo M hx HIV/AIDs, GIB requiring transfusion presents to the ED with redness and pain at site of PIV that was placed during recent admission. Pt DC 2 days ago after admission for blood transfusion. Reports since DC, he developed progressive redness, warmth to the L forearm. Denies fevers/chills, cp, sob, abd pain, n/v/d, LE edema, focal weakness/numbness. - Physicial Exam PE: 05/23/17 18:15 agree with resident exam - Medical Decision Making 05/23/17 16:37 67-year-old male with a history of HIV/AIDS, GI bleeds, recent admission for blood transfusion presents emergency Department with redness and swelling around the site of recent peripheral IV on the left arm. Vitals unremarkable. Exam with erythema, induration and warmth of the left dorsal forearm at the site of the IV. Bedside ultrasound with possible collection and likely superficial thrombophlebitis. Given immunocompromised status, will treat with IV vanc and admit to observation.
[2017-05-23 16:48] LABS: ALBUMIN 4.1 g/dl (3.4-5.0); ANION GAP 8 (8-16); BLOOD UREA NITROGEN 20 mg/dL (7-18); CALCIUM 8.7 mg/dL (8.5-10.1); CHLORIDE 104 mmol/L (98-107); CO2 25 mmol/L (21-32); GLUCOSE,RANDOM 85 mg/dL (74-106); POTASSIUM 4.4 mmol/L (3.5-5.1); SGOT/AST 38 U/L (15-37); SGPT/ALT 35 U/L (12-78); SODIUM 137 mmol/L (136-145)
[2017-05-23 16:49] LABS: ALK PHOS 155 U/L (45-117); BILIRUBIN,TOTAL 0.8 mg/dL (0.2-1.0)
[2017-05-23 16:55] LABS: BASO % 0.3 % (0-2.0); EOS % 3.1 % (0-4.5); HEMATOCRIT 34.4 % (35.4-49); HEMOGLOBIN 10.4 GM/dL (11.7-16.9); LYMPH % 19.6 % (8-40); MCHC 30.1 g/dl (32.0-35.9); MONO % 18.4 % (3.8-10.2); NEUT % 58.6 % (42.8-82.8); RBC 4.71 M/mm3 (4.00-5.60); RDW 36.7 % (11.9-15.9); WHITE BLOOD COUNT 3.4 K/mm3 (4.0-10.0)
[2017-05-23 17:01] LABS: ADD RBC MORPHOLOGY YES
[2017-05-23 17:34] LABS: ANISOCYTOSIS 3+; MACROCYTOSIS 1+; MEAN PLT VOLUME 8.9 fl (7.5-11.1); OVALOCYTE 1+; PLATELET COUNT 116 K/MM3 (134-434); PLATELET ESTIMATE SLT DECREASE
[2017-05-23] MEDS ORDERED: VANCOMYCIN 1 GRAM (PRE-DOCKED) 1,000 MG/250 ML BAG IVPB ONE (17:55)
--- NOTE | 2017-05-23 19:30 | PDOC ---
*Physical Exam - Vital Signs Last Vital Signs Temp Pulse Resp BP Pulse Ox 97.3 F L 61 18 147/72 99 05/23/17 14:30 05/23/17 14:30 05/23/17 14:30 05/23/17 14:30 05/23/17 14:30 ED Treatment Course - LABORATORY CBC & Chemistry Diagram: 05/23/17 16:12 05/23/17 16:12 - ADDITIONAL ORDERS Additional order review: Laboratory Results 05/23/17 16:12 Sodium 137 Potassium 4.4 Chloride 104 Carbon Dioxide 25 Anion Gap 8 BUN 20 H D Creatinine 1.0 Creat Clearance w eGFR > 60 Random Glucose 85 Calcium 8.7 Total Bilirubin 0.8 AST 38 H D ALT 35 D Alkaline Phosphatase 155 H Total Protein 8.0 Albumin 4.1 05/23/17 16:12 RBC 4.71 MCV 73.0 L MCHC 30.1 L RDW 36.7 H MPV 8.9 Neutrophils % 58.6 Lymphocytes % 19.6 Monocytes % 18.4 H Eosinophils % 3.1 Basophils % 0.3 - Medications Given in the ED: ED Medications Discontinued Medications Generic Name Dose Route Start Last Admin Trade Name Freq PRN Reason Stop Dose Admin Vancomycin HCl 1,000 mg/ 250 mls @ 250 mls/hr 05/23/17 16:38 05/23/17 17:58 Dextrose IVPB 05/23/17 17:37 250 mls/hr ONCE ONE Administration Protocol Medical Decision Making - Medical Decision Making 05/23/17 19:[address] Harrell. Case d/w Dr. Alexandra for med surg *DC/Admit/Observation/Transfer Diagnosis at time of Disposition: Cellulitis - Discharge Dispostion Condition at time of disposition: Guarded Admit: Yes - Referrals Referrals: Kizzy Cobos MD [Staff Physician] - - Patient Instructions - Post Discharge Activity
--- NOTE | 2017-05-23 20:01 | HP ---
Admitting History and Physical - Primary Care Physician PCP: Kizzy Cobos - Admission Chief Complaint: Pain, Swelling, Redness to L- forearm History of Present Illness: This is a 67 y/o man who is from home. Who presents to the ED with pain, swelling, redness to his L- forearm with tracking x 2 days. Patient reports noting swelling and redness when his IV site was removed during discharge, states he was told by the nurse to placed ice on it and take Advil- no improvement. Patient was admitted 05/17-05/21 for Severe Anemia. Patient denies numbness or tingling. Patient denies fever, chills, cough, SOB, CP, AP, N/V/D, constipation, dysuria. History Source: Patient Limitations to Obtaining History: No Limitations - Past Medical History Cardiovascular: Yes: CAD, CHF, HTN, Hyperlipdemia, Other (aortic vavle replacement) Infectious Disease: Yes: HIV - Past Surgical History Past Surgical History: Yes: CABG, Valve Replacement (aortic (bioprosthetic)) - Smoking History Smoking history: Never smoked Have you smoked in the past 12 months: No If you are a former smoker, when did you quit?: 2010 - Alcohol/Substance Use Hx Alcohol Use: No History of Substance Use: reports: None - Social History Usual Living Arrangement: Yes: Other (with family) History of Recent Travel: Yes (from [facility]) Home Medications - Allergies Allergies/Adverse Reactions: Allergies Allergy/AdvReac Type Severity Reaction Status Date / Time No Known Allergies Allergy Verified 05/23/17 14:30 - Home Medications Home Medications: Ambulatory Orders Bupropion HCl [Bupropion HCl Sr] 150 mg PO AM #30 tablet.er 09/20/16 Clonazepam [Klonopin] 0.5 mg PO AM PRN #30 tablet MDD 2 09/21/16 Metoprolol Succinate [Toprol XL -] 1 tab PO HS #30 tab 10/02/16 Atorvastatin Ca [Lipitor] 20 mg PO HS #30 tablet 05/20/17 Darunavir/Cobicistat [Prezcobix 800 mg-150 mg Tablet] 1 each PO DAILY #30 tablet 05/20/17 Dolutegravir Sodium [Tivicay] 50 mg PO DAILY #30 tablet 05/20/17 Ferrous Sulfate 325 mg PO BID #60 tablet MDD 2 05/20/17 Sulfamethoxazole/Trimethoprim [Bactrim DS -] 1 each PO DAILY #30 tablet MDD 1 Cyanocobalamin (Vitamin B-12) [B-12] 5,000 mcg SL DAILY #30 tab.subl 05/21/17 Family Disease History - Family Disease History Family History: Unable to Obtain Review of Systems - Review of Systems Constitutional: reports: No Symptoms Eyes: reports: No Symptoms HENT: reports: No Symptoms Neck: reports: No Symptoms Cardiovascular: reports: No Symptoms Respiratory: reports: No Symptoms Gastrointestinal: reports: No Symptoms Genitourinary: reports: No Symptoms Breasts: reports: No Symptoms Reported Musculoskeletal: reports: Extremity Pain Integumentary: reports: Erythema, Other (swelling) Neurological: reports: No Symptoms Endocrine: reports: No Symptoms Hematology/Lymphatic: reports: No Symptoms Psychiatric: reports: No Symptoms Pain Intensity: 7 Physical Examination Vital Signs: Vital Signs Temperature 98.6 F 05/23/17 19:30 Pulse Rate 100 H 05/23/17 19:30 Respiratory Rate 18 05/23/17 19:30 Blood Pressure 129/76 05/23/17 19:30 O2 Sat by Pulse Oximetry (%) 100 05/23/17 19:30 Constitutional: Yes: Well Nourished, No Distress, Calm Eyes: Yes: WNL, Conjunctiva Clear, EOM Intact, PERRL HENT: Yes: WNL, Atraumatic, Normocephalic Neck: Yes: WNL, Supple, Trachea Midline Cardiovascular: Yes: Regular Rate and Rhythm, Murmur, S1, S2 Respiratory: Yes: WNL, Regular, CTA Bilaterally Gastrointestinal: Yes: WNL, Normal Bowel Sounds, Soft Renal/: Yes: WNL Breast(s): Yes: WNL Musculoskeletal: Yes: WNL Extremities: Yes: Erythema (left forearm) Peripheral Pulses WNL: Yes Integumentary: Yes: Erythema (left forearm), Other (swelling and induration to left forearm) Neurological: Yes: WNL, Alert, Oriented, Cran Nerves II-XII Intact ...Motor Strength: WNL Psychiatric: Yes: WNL, Alert, Oriented Labs: CBC, BMP 05/23/17 16:12 05/23/17 16:12 Laboratory Results - last 24 hr 05/23/17 05/23/17 16:12 16:12 WBC 3.4 L RBC 4.71 Hgb 10.4 L D Hct 34.4 L MCV 73.0 L MCH 22.0 L MCHC 30.1 L RDW 36.7 H Plt Count 116 L MPV 8.9 Neutrophils % 58.6 Lymphocytes % 19.6 Monocytes % 18.4 H Eosinophils % 3.1 Basophils % 0.3 Hypochromia 1+ Platelet Estimate Slt decrease Platelet Comment Polychromasia 1+ Poikilocytosis 1+ Anisocytosis 3+ Microcytosis 1+ Macrocytosis 1+ Ovalocytes 1+ Sodium 137 Potassium 4.4 Chloride 104 Carbon Dioxide 25 Anion Gap 8 BUN 20 H D Creatinine 1.0 Creat Clearance w eGFR > 60 Random Glucose 85 Calcium 8.7 Total Bilirubin 0.8 AST 38 H D ALT 35 D Alkaline Phosphatase 155 H Total Protein 8.0 Albumin 4.1 Intake & Output 05/20/17 05/21/17 05/22/17 05/23/17 23:59 23:59 23:59 23:59 Weight 88.451 kg Problem List - Problems (1) Cellulitis Code(s): L03.90 - CELLULITIS, UNSPECIFIED (2) AIDS Code(s): B20 - HUMAN IMMUNODEFICIENCY VIRUS [HIV] DISEASE (3) Anemia, chronic disease Code(s): D63.8 - ANEMIA IN OTHER CHRONIC DISEASES CLASSIFIED ELSEWHERE (4) Aortic valve replaced Code(s): Z95.2 - PRESENCE OF PROSTHETIC HEART VALVE (5) FH: CABG (coronary artery bypass surgery) Code(s): Z84.89 - FAMILY HISTORY OF OTHER SPECIFIED CONDITIONS (6) Hyperlipidemia Code(s): E78.5 - HYPERLIPIDEMIA, UNSPECIFIED (7) HIV (human immunodeficiency virus infection) Code(s): Z21 - ASYMPTOMATIC HUMAN IMMUNODEFICIENCY VIRUS INFECTION STATUS (8) HTN (hypertension) Code(s): I10 - ESSENTIAL (PRIMARY) HYPERTENSION (9) DVT prophylaxis Code(s): FHC4788 - Assessment/Plan This is a 67 y/o man with a PMHx of: HIV/AIDS (CD4 32, 05/20/17), CAD s/p CABG, s/ p mechanical aortic valve, recurrent GI Bleed, Anemia. Admitted for Cellulitis of L-forearm. Plan: 1. Cellulitis- Likely secondary to peripheral line vs DVT. Blood Cultures- pending, pt is pancytopenic, Vancomycin given in ED, will continue. Appreciate ID Consult. Wells Score 1. Duplex of LUE- neg DVT. Elevate extremity, neurovascular checks, Tylenol prn 2. HIV/AIDS- CD4 32, continue HAART, continue to monitor 3. CAD- s/p CABG, s/p mechanical aortic valve, continue home meds, EKG 4. Anemia- hgb at baseline, continue Ferrous Sulfate, will transfuse if Hgb < 7.0 5. FEN- PO fluids, replete lytes prn, Low Na Diet 6. DVT Prophylaxis- OOB, SCDs Code Status: Full Code Dispo- Requires Inpatient Care Visit type - Emergency Visit Emergency Visit: Yes ED Registration Date: 05/23/17 Care time: The patient presented to the Emergency Department on the above date and was hospitalized for further evaluation of their emergent condition. - New Patient This patient is new to me today: Yes Date on this admission: 05/23/17 - Critical Care Critical Care patient: No Hospitalist Screening - Colonoscopy Questionnaire Colonoscopy Questionnaire: Colonoscopy Questionnaire - Patient: 50 - 75 years old and never had a screening colonoscopy: No History of colon or rectal polyps, or CA: No History of IBD, Crohn's disease or UC: No History of abdominal radiation therapy as a child: No - Relative: 1 with colon or rectal CA, or polyps at age 60 or younger: No Colon or rectal CA diagnosed at age 45 or younger: No Multiple relatives with colon or rectal CA: No - Outcome: Screening Result: Negative Screen
[2017-05-23] MEDS ORDERED: clonazePAM 0.5 MG TABLET PO PRN (20:21)
[2017-05-23] MEDS ORDERED: ACETAMINOPHEN 325 MG TABLET (FP) PO PRN (20:23)
[2017-05-23] MEDS ORDERED: ATORVASTATIN CA 40 MG TABLET (FP) ONE (22:23)
[2017-05-23] MEDS: ATORVASTATIN CA 20 MG TABLET (FP) PO SCH (22:27)
[2017-05-24 08:21] LABS: BASO % 1.4 % (0-2.0); EOS % 4.8 % (0-4.5); HEMATOCRIT 31.2 % (35.4-49); HEMOGLOBIN 9.5 GM/dL (11.7-16.9); LYMPH % 21.4 % (8-40); MCH 22.1 pg (25.7-33.7); MCHC 30.5 g/dl (32.0-35.9); MEAN CELL VOLUME 72.3 fl (80-96); NEUT % 55.4 % (42.8-82.8); PLATELET COUNT 111 K/MM3 (134-434); RBC 4.31 M/mm3 (4.00-5.60); RDW 36.5 % (11.9-15.9); WHITE BLOOD COUNT 3.4 K/mm3 (4.0-10.0)
[2017-05-24 08:39] LABS: ANION GAP 10 (8-16); BLOOD UREA NITROGEN 17 mg/dL (7-18); CALCIUM 8.8 mg/dL (8.5-10.1); CHLORIDE 104 mmol/L (98-107); CO2 23 mmol/L (21-32); CREATININE 0.9 mg/dL (0.7-1.3); GLUCOSE,RANDOM 79 mg/dL (74-106); POTASSIUM 4.6 mmol/L (3.5-5.1); SODIUM 137 mmol/L (136-145)
--- NOTE | 2017-05-24 08:45 | EKG ---
Test Reason : Blood Pressure : / mmHG Vent. Rate : 052 BPM Atrial Rate : 052 BPM P-R Int : 214 ms QRS Dur : 088 ms QT Int : 456 ms P-R-T Axes : 047 -12 086 degrees QTc Int : 424 ms SINUS BRADYCARDIA WITH 1ST DEGREE A-V BLOCK MODERATE VOLTAGE CRITERIA FOR LVH, MAY BE NORMAL VARIANT NONSPECIFIC ST AND T WAVE ABNORMALITY ABNORMAL ECG WHEN COMPARED WITH ECG OF 17-MAY-2017 12:55, T WAVE INVERSION LESS EVIDENT IN LATERAL LEADS Confirmed by CEZAR KEENE, SUSANA ([id number]) on 05/24/2017 8:44:35 AM Referred By: Confirmed By:SUSANA ROBB MD
[2017-05-24] MEDS ORDERED: PT OWN MED DRAWER 7, Y5N ONE ×6 (09:54→21:21)
[2017-05-24] MEDS: CYANOCOBALAMIN 1,000 MCG TABLET (FP) PO SCH (09:57)
[2017-05-24] MEDS ORDERED: DARUNAVIR PO SCH (10:00)
[2017-05-24] MEDS ORDERED: DOLUTEGRAVIR SODIUM 50 MG TABLET PO SCH ×2 (10:00→20:00)
[2017-05-24] MEDS ORDERED: COBICISTAT PO SCH (10:00)
[2017-05-24] MEDS ORDERED: VANCOMYCIN 1,000 MG in DEXTROSE 5%-WATER - 250 ML IVPB SCH (10:00)
[2017-05-24] MEDS: FERROUS SO4 325 MG TABLET (FP) PO SCH ×2 (10:06→18:06)
--- NOTE | 2017-05-24 12:59 | PN ---
Progress Note, Physician Chief Complaint: patient seen and examined left arm swelling noted per patient he says it is slightly better - Current Medication List Current Medications: Active Medications Acetaminophen (Tylenol -) 650 mg PO Q6H PRN PRN Reason: FEVER Last Admin: 05/24/17 09:57 Dose: 650 mg Atorvastatin Calcium (Lipitor -) 20 mg PO HS [facility] Last Admin: 05/23/17 22:27 Dose: 20 mg Bupropion HCl (Wellbutrin Xl -) 150 mg PO AM [facility] Last Admin: 05/24/17 06:29 Dose: 150 mg Clonazepam (Klonopin -) 0.5 mg PO AM PRN PRN Reason: ANXIETY Cyanocobalamin (Vitamin B12 -) 5,000 mcg PO DAILY [facility] Last Admin: 05/24/17 09:57 Dose: 5,000 mcg Ferrous Sulfate (Feosol -) 325 mg PO 0800,1730 [facility] Last Admin: 05/24/17 10:06 Dose: 325 mg Vancomycin HCl 1,000 mg/ (Dextrose) 250 mls @ 250 mls/hr IVPB ONCE ONE PRN Reason: Protocol Stop: 05/24/17 14:59 Metoprolol Succinate (Toprol Xl -) 50 mg PO [facility] Last Admin: 05/23/17 22:27 Dose: 50 mg Non-Formulary Medication (Darunavir/Cobicistat [Prezcobix 800 Mg-150 Mg Tablet] ) 1 each PO DAILY [facility] - Objective Vital Signs: Vital Signs Temperature 97.9 F 05/24/17 11:04 Pulse Rate 60 05/24/17 11:04 Respiratory Rate 18 05/24/17 11:04 Blood Pressure 127/66 05/24/17 11:04 O2 Sat by Pulse Oximetry (%) 96 05/23/17 21:30 Constitutional: Yes: Calm Cardiovascular: Yes: Regular Rate and Rhythm, S1, S2 Respiratory: Yes: CTA Bilaterally Gastrointestinal: Yes: Normal Bowel Sounds, Soft Musculoskeletal: Yes: Other Extremities: Yes: Other (left arm swelling noted firm tender to touch) Neurological: Yes: Alert, Oriented Labs: CBC, BMP 05/24/17 07:00 05/24/17 07:00 Problem List - Problems (1) Cellulitis Assessment/Plan: vancomycin ID eval Code(s): L03.90 - CELLULITIS, UNSPECIFIED (2) AIDS Assessment/Plan: patient takes HIV meds at night Code(s): B20 - HUMAN IMMUNODEFICIENCY VIRUS [HIV] DISEASE (3) CAD (coronary artery disease) Assessment/Plan: atorvastatin and metoprolol Code(s): I25.10 - ATHSCL HEART DISEASE OF [place] CORONARY ARTERY W/O ANG PCTRS (4) Anemia Assessment/Plan: ferrous sulfate check b12 level and iron panel Code(s): D64.9 - ANEMIA, UNSPECIFIED
[2017-05-24] MEDS ORDERED: VANCOMYCIN 1,000 MG in DEXTROSE 5%-WATER - 250 ML IVPB ONE (14:00)
--- NOTE | 2017-05-24 16:09 | PN ---
Progress Note (short form) - Note Progress Note: ID Severely immunocompromised 67 year old male with AIDS and no Tcells brought with redness swelling tenderness of the left wrist. Recently discharged for an admission for severe Iron deficiency anemia. Had IV catheter in the left wrist. Has a prosthetic aortic valve and his T cells are 32. Taking Prezcobix and Tivicay Denies fever chills and blood cultures no growth so far Selected Entries 05/24/17 14:21 Temperature 97.5 F L Pulse Rate 54 L Respiratory 20 Rate Blood Pressure 129/62 Lung Clear Cor S1 S2 RR no murmur ABd Sofst nontender Ext Fluctuant red tender area left wrist reddened Microbiology Laboratory Tests 05/23/17 05/24/17 05/24/17 16:12 07:00 07:00 WBC 3.4 L Hct 31.2 L Plt Count 111 L BUN 17 Creatinine 0.9 Alkaline Phosphatase 155 H Vancomycin Pre-Dose 05/24/17 09:50 WBC Hct Plt Count BUN Creatinine Alkaline Phosphatase Vancomycin Pre-Dose 2.879 L* Assessment Immunocompromised host AIDS no Tcells and severe phlebitis ? abscess of the wrist PlanIncrease Vanco dosing 15-20mg/kg bid or 1.5grs bid Warm soaks Surgical consultation Dr Narcisa Fernández MD Problem List - Problems (1) Cellulitis Code(s): L03.90 - CELLULITIS, UNSPECIFIED (2) AIDS Code(s): B20 - HUMAN IMMUNODEFICIENCY VIRUS [HIV] DISEASE (3) Aortic valve replaced Code(s): Z95.2 - PRESENCE OF PROSTHETIC HEART VALVE (4) Iron deficiency anemia Code(s): D50.9 - IRON DEFICIENCY ANEMIA, UNSPECIFIED
--- NOTE | 2017-05-24 17:06 | CONSULT ---
Consult Consult Specialty:: hand surgery Referred by:: Rob Fernández Reason for Consultation:: left arm swelling - History of Present Illness Chief Complaint: left arm abscess History of Present Illness: 67 yo male PMH HIV/AIDs, GIB, Anemia presents to the ED with pain, swelling, redness to his Left forearm with tracking x 2 days. Patient reports noting swelling and redness when his IV site was removed during discharge, states he was told by the nurse to placed ice on it and take Advil- no improvement. Patient was admitted 05/17-05/21 for Severe Anemia. He denies fever and chills. Patient denies numbness or tingling. we were asked to assess. - History Source History Provided By: Patient, Medical Record Limitations to Obtaining History: No Limitations - Past Medical History Cardio/Vascular: Yes: CAD, CHF, HTN, Hyperlipdemia, Other (aortic vavle replacement) Infectious Disease: Yes: HIV - Past Surgical History Past Surgical History: Yes: CABG, Valve Replacement (aortic (bioprosthetic)) - Alcohol/Substance Use Hx Alcohol Use: No History of Substance Use: reports: None - Smoking History Smoking history: Never smoked Have you smoked in the past 12 months: No If you are a former smoker, when did you quit?: 2009 - Social History History of Recent Travel: Yes (from [facility]) Home Medications - Allergies Allergies/Adverse Reactions: Allergies Allergy/AdvReac Type Severity Reaction Status Date / Time No Known Allergies Allergy Verified 05/23/17 14:30 - Home Medications Home Medications: Ambulatory Orders Bupropion HCl [Bupropion HCl Sr] 150 mg PO AM #30 tablet.er 09/20/16 Clonazepam [Klonopin] 0.5 mg PO AM PRN #30 tablet MDD 2 09/21/16 Metoprolol Succinate [Toprol XL -] 1 tab PO HS #30 tab 10/02/16 Atorvastatin Ca [Lipitor] 20 mg PO HS #30 tablet 05/20/17 Darunavir/Cobicistat [Prezcobix 800 mg-150 mg Tablet] 1 each PO DAILY #30 tablet 05/20/17 Dolutegravir Sodium [Tivicay] 50 mg PO DAILY #30 tablet 05/20/17 Ferrous Sulfate 325 mg PO BID #60 tablet MDD 2 05/20/17 Sulfamethoxazole/Trimethoprim [Bactrim DS -] 1 each PO DAILY #30 tablet MDD 1 Cyanocobalamin (Vitamin B-12) [B-12] 5,000 mcg SL DAILY #30 tab.subl 05/21/17 Review of Systems - Review of Systems Constitutional: denies: Chills, Fever Eyes: denies: Blurred Vision, Recent Change in Vision HENT: denies: Difficult Swallowing, Throat Pain Neck: denies: Pain on Movement, Tenderness Cardiovascular: denies: Chest Pain, Palpitations Respiratory: denies: Cough, SOB Gastrointestinal: denies: Abdominal Pain, Constipation, Diarrhea Genitourinary: denies: Discharge, Dysuria Musculoskeletal: denies: Muscle Pain, Muscle Weakness Integumentary: denies: Pruritis, Rash Neurological: denies: Seizure, Syncope Endocrine: denies: Unexplained Weight Gain, Unexplained Weight Loss Psychiatric: denies: Anxiety, Depression Physical Exam Vital Signs: Vital Signs Temperature 97.5 F L 05/24/17 14:21 Pulse Rate 54 L 05/24/17 14:21 Respiratory Rate 20 05/24/17 14:21 Blood Pressure 129/62 05/24/17 14:21 O2 Sat by Pulse Oximetry (%) 95 05/24/17 09:00 Vital Signs Period Temp Pulse Resp BP Sys/Meza Pulse Ox Last 24 Hr 97.5 F-98.6 F 50-100 18-20 101-153/54-78 95-100 Constitutional: Yes: No Distress, Calm Eyes: Yes: Conjunctiva Clear, EOM Intact HENT: Yes: Atraumatic, Normocephalic Neck: Yes: Supple, Trachea Midline Cardiovascular: Yes: Regular Rate and Rhythm, S1, S2 Respiratory: Yes: Regular, CTA Bilaterally Gastrointestinal: Yes: Normal Bowel Sounds, Soft. No: Tenderness ...Rectal Exam: Yes: Deferred Renal/: No: CVA Tenderness - Left, CVA Tenderness - Right Extremities: No: Cool, Cyanosis Integumentary: No: Jaundice, Rash Wound/Incision: Yes: Reddened, Other (left forearm dorsal 8cm X 3cm 2cm, fluctuant). No: Draining Neurological: Yes: Alert, Oriented Psychiatric: Yes: Alert, Oriented Labs: CBC, BMP 05/24/17 07:00 05/24/17 07:00 Imaging - Results Ultrasound: Report Reviewed, Image Reviewed (Duplex visualized vessles with out mention of the affected area) Problem List - Problems (1) Thrombophlebitis arm Assessment/Plan: 67 yo RHD male with HIV has and infected thrombophlebitis dorsum of left distal forearm at the site of an IV placed during recent hospitalization NPO after midnight for OR in AM empiric IV antibiotics antibiotic OR for excision of infected thrombophlebitis left forearm - Discussed with patient risks, benefits and alternatives of proposed procedure, including but not limited to bleeding, infection, injury to adjacent structures, embolization of infection, need for further procedures, ; alternatives include antibiotics, delayed or no surgery - risks of this include failure of nonoperative therapy, sepsis, recurrence, . Patient desires to proceed with operation - will take to OR for above. Informed consent signed for same. Thank you for the opportunity to participate in the care of this patient. Code(s): I80.8 - PHLEBITIS AND THROMBOPHLEBITIS OF OTHER SITES (2) CAD (coronary artery disease) Code(s): I25.10 - ATHSCL HEART DISEASE OF [place] CORONARY ARTERY W/O ANG PCTRS (3) AIDS Code(s): B20 - HUMAN IMMUNODEFICIENCY VIRUS [HIV] DISEASE (4) Hyperlipidemia Code(s): E78.5 - HYPERLIPIDEMIA, UNSPECIFIED (5) Anemia Code(s): D64.9 - ANEMIA, UNSPECIFIED (6) HIV (human immunodeficiency virus infection) Code(s): Z21 - ASYMPTOMATIC HUMAN IMMUNODEFICIENCY VIRUS INFECTION STATUS (7) HTN (hypertension) Code(s): I10 - ESSENTIAL (PRIMARY) HYPERTENSION
[2017-05-24] MEDS ORDERED: PATIENT'S OWN MEDICATION (NON-FORMULARY) (Darunavir/Cobicistat [Prezcobix 800 Mg-150 Mg Ta PO SCH (18:00)
[2017-05-24] MEDS: ATORVASTATIN CA 20 MG TABLET (FP) PO SCH (21:46)
[2017-05-25] MEDS ORDERED: VANCOMYCIN 1,500 MG in DEXTROSE 5%-WATER - 500 ML IVPB SCH (02:00)
--- NOTE | 2017-05-25 08:08 | OP ---
Operative Note - Note: Operative Date: 05/25/17 Pre-Operative Diagnosis: left forearm infected thrombophelbitis Operation: Excision of left forarm abscess in vein Findings: minimal pus, superfical vein dorsal fore arm. Implants: none Post-Operative Diagnosis: Same as Pre-op Surgeon: Luiz Brewster Anesthesiologist/BROTH SETTER: Curt Montana Anesthesia: Local (0.5% marcaine and 1% lindocaine 20ml), MAC Specimens Removed: culture left for arm infected vein Estimated Blood Loss (mls): 10 Instrument used (Debridements only): scissiors and scalpel Drains & Tubes with Location: none Fluid Volume Replaced (mls): 150 Operative Report Dictated: Yes
[2017-05-25] MEDS: FERROUS SO4 325 MG TABLET (FP) PO SCH ×2 (08:44→17:23)
[2017-05-25] MEDS ORDERED: BUPIVACAINE HCL/PF 0.5% (5MG/ML) 10 ML VIAL ONE (09:31)
[2017-05-25] MEDS ORDERED: LIDOCAINE HCL 1%, 10 MG/ML (20ML VIAL) ONE (09:31)
[2017-05-25] MEDS ORDERED: MIDAZOLAM HCL 2 MG/2 ML SINGLE DOSE VIAL ONE ×2 (09:38)
[2017-05-25] MEDS ORDERED: LIDOCAINE HCL 1%, 10 MG/ML (50 mL VIAL) IJ ONE (09:44)
[2017-05-25] MEDS ORDERED: BUPIVACAINE HCL/PF 0.5% (5MG/ML) 10 ML VIAL IJ ONE (09:44)
[2017-05-25] MEDS ORDERED: ONDANSETRON 4 MG/2 ML VIAL IVPUSH PRN (10:18)
[2017-05-25] MEDS ORDERED: oxyCODONE HCL 5 MG TABLET PO PRN ×2 (10:24→10:35)
[2017-05-25] MEDS ORDERED: IBUPROFEN 600 MG TABLET (FP) PO PRN ×2 (10:24→10:35)
[2017-05-25] MEDS ORDERED: LACTATED RINGERS SOLUTION 1,000 ML IV SCH (10:30)
[2017-05-25] MEDS ORDERED: clonazePAM 0.5 MG TABLET PO PRN (10:35)
[2017-05-25] MEDS ORDERED: ACETAMINOPHEN 325 MG TABLET (FP) PO PRN (10:35)
[2017-05-25] MEDS: CYANOCOBALAMIN 1,000 MCG TABLET (FP) PO SCH (11:56)
--- NOTE | 2017-05-25 12:49 | OP ---
DATE OF OPERATION: 05/25/2017 PREOPERATIVE DIAGNOSIS: Left forearm infected thrombophlebitis. POSTOPERATIVE DIAGNOSIS: Left forearm infected thrombophlebitis. PROCEDURE: Excision, left forearm abscess and vein. ATTENDING SURGEON: Luiz Brewster MD ANESTHESIOLOGIST: Curt Montana DO ANESTHESIA TYPE: Local with MAC. Local consisted of 0.5% Marcaine and 1% lidocaine, both plain, 20 mL in an area block fashion. ESTIMATED BLOOD LOSS: 10 mL. SPECIMEN: Culture swab for sensitivity. INTRAVENOUS FLUID REPLACED: Crystalloid, 150 mL. TOURNIQUET TIME: No tourniquet. INDICATION: Patient is a 67-year-old male. He is right hand dominant and presents with a left forearm abscess at the site of a previous intravenous insertion site from a previous hospitalization. He noticed redness and swelling and pain at the site. He is immunocompromised with HIV. He was counseled regarding the need for I & D. He signed informed consent after we explained the risks, benefits and alternatives and was taken for the procedure. PROCEDURE: Patient was brought to the operating room and placed in the supine position with the left arm extended at 90 degrees perpendicular to the body's axis. The left hand was prepped and draped into a standard surgical field. After shave, prep and drape and induction with sedation and additional supplemental oxygen, we proceeded with a formal timeout, identifying the operative site. With all parties in agreement, we proceeded first with a linear incision along the point of maximal fluctuance on the dorsal radial aspect of the forearm just proximal to the wrist. An incision of 4 cm was scribed and the skin incised with a 15-blade scalpel, deepened and widened through the subcutaneous tissues with cutting current on the Bovie cautery. There was not a significant gush of pus. However, there was a clearly infected vein that ran adjacent to the dorsal radial sensory branch for the forearm. It was dissected carefully away from the dorsal radial sensory branch which was left intact and the segment of vein was then isolated with mosquito clamps. The segment that appeared infected was then suture ligated and debrided from the site. A culture swab was also sent from the area. The area was then thoroughly irrigated. The suture ligatures were 4-0 Vicryl and they were tied in standard fashion, gaining hemostasis. At this time, hemostasis was obtained in the field with Bovie cautery. The site was irrigated with approximately 1/2 L of sterile irrigation fluid. The wound was then planned for delayed primary closure. Nylon 4-0 was laid across the 4-cm incision in interrupted fashion and then Steri-Strips were used to hold it to the skin for a future time. The remaining abscess cavity was packed with 1/4-inch Iodoform packing. The skin was cleaned. Sterile dressings were placed, including 4 x 4 gauze sponges. The arm was wrapped with Kerlix and Coban. Patient was awoken from general anesthesia, having tolerated the procedure well. Counts were correct. MD RAFIQ Mejia/[id number]
--- NOTE | 2017-05-25 14:03 | PN ---
Progress Note, Physician - Current Medication List Current Medications: Active Medications Acetaminophen (Tylenol -) 650 mg PO Q6H PRN PRN Reason: FEVER Atorvastatin Calcium (Lipitor -) 20 mg PO HS [facility] Bupropion HCl (Wellbutrin Xl -) 150 mg PO AM [facility] Clonazepam (Klonopin -) 0.5 mg PO AM PRN PRN Reason: ANXIETY Cyanocobalamin (Vitamin B12 -) 5,000 mcg PO DAILY [facility] Ferrous Sulfate (Feosol -) 325 mg PO 0800,1730 [facility] Vancomycin HCl 1,500 mg/ (Dextrose) 500 mls @ 250 mls/hr IVPB BID@0200,1400 [facility] PRN Reason: Protocol Ibuprofen (Motrin -) 600 mg PO Q6H PRN PRN Reason: PAIN LEVEL 1-5 Metoprolol Succinate (Toprol Xl -) 50 mg PO HS [facility] Non-Formulary Medication (Darunavir/Cobicistat [Prezcobix 800 Mg-150 Mg Tablet] ) 1 each PO DAILY@1800 [facility] Oxycodone HCl (Roxicodone -) 5 mg PO Q6H PRN PRN Reason: PAIN LEVEL 6-10 - Objective Vital Signs: Vital Signs Temperature 98.4 F 05/25/17 11:30 Pulse Rate 56 L 05/25/17 11:30 Respiratory Rate 18 05/25/17 11:30 Blood Pressure 133/99 05/25/17 11:30 O2 Sat by Pulse Oximetry (%) 98 05/25/17 10:55 Cardiovascular: Yes: Regular Rate and Rhythm Respiratory: Yes: Regular, CTA Bilaterally Wound/Incision: Yes: Dressing Dry and Intact Labs: CBC, BMP 05/24/17 07:00 05/24/17 07:00 Assessment/Plan - Problems (1) Cellulitis Assessment/Plan: vancomycin ID eval Code(s): L03.90 - CELLULITIS, UNSPECIFIED (2) AIDS Assessment/Plan: patient takes HIV meds at night Code(s): B20 - HUMAN IMMUNODEFICIENCY VIRUS [HIV] DISEASE (3) CAD (coronary artery disease) Assessment/Plan: atorvastatin and metoprolol Code(s): I25.10 - ATHSCL HEART DISEASE OF [place] CORONARY ARTERY W/O ANG PCTRS (4) Anemia Assessment/Plan: ferrous sulfate check b12 level and iron panel Code(s): D64.9 - ANEMIA, UNSPECIFIED (5) Abscess Assessment/Plan: s/p id abx
[2017-05-25] MEDS: VANCOMYCIN 1,500 MG in DEXTROSE 5%-WATER - 500 ML IVPB SCH (14:43)
[2017-05-25] MEDS: PATIENT'S OWN MEDICATION (NON-FORMULARY) (Darunavir/Cobicistat [Prezcobix 800 Mg-150 Mg Ta PO SCH (17:24)
[2017-05-25] MEDS: DOLUTEGRAVIR SODIUM 50 MG TABLET PO SCH (20:14)
[2017-05-25] MEDS: ATORVASTATIN CA 20 MG TABLET (FP) PO SCH (21:09)
[2017-05-26] MEDS: VANCOMYCIN 1,500 MG in DEXTROSE 5%-WATER - 500 ML IVPB SCH ×3 (01:20→15:36)
[2017-05-26] MEDS: FERROUS SO4 325 MG TABLET (FP) PO SCH ×3 (08:00→18:00)
[2017-05-26] MEDS: CYANOCOBALAMIN 1,000 MCG TABLET (FP) PO SCH (10:16)
--- NOTE | 2017-05-26 11:21 | PN ---
Progress Note, Physician Chief Complaint: left forearm abscess History of Present Illness: 67 yo male PMH HIV/AIDs, GIB, Anemia presents to the ED with pain, swelling, redness to his Left forearm with tracking x 2 days. Patient reports noting swelling and redness when his IV site was removed during discharge. no acute events overnight - Current Medication List Current Medications: Active Medications Acetaminophen (Tylenol -) 650 mg PO Q6H PRN PRN Reason: FEVER Atorvastatin Calcium (Lipitor -) 20 mg PO [facility] Last Admin: 05/25/17 21:09 Dose: 20 mg Bupropion HCl (Wellbutrin Xl -) 150 mg PO AM [facility] Last Admin: 05/26/17 06:04 Dose: 150 mg Clonazepam (Klonopin -) 0.5 mg PO AM PRN PRN Reason: ANXIETY Cyanocobalamin (Vitamin B12 -) 5,000 mcg PO DAILY [facility] Last Admin: 05/26/17 10:16 Dose: 5,000 mcg Ferrous Sulfate (Feosol -) 325 mg PO 0800,1730 [facility] Last Admin: 05/26/17 08:54 Dose: 325 mg Vancomycin HCl 1,500 mg/ (Dextrose) 500 mls @ 250 mls/hr IVPB BID@0200,1400 [facility] PRN Reason: Protocol Last Admin: 05/26/17 01:20 Dose: 250 mls/hr Ibuprofen (Motrin -) 600 mg PO Q6H PRN PRN Reason: PAIN LEVEL 1-5 Metoprolol Succinate (Toprol Xl -) 50 mg PO [facility] Last Admin: 05/25/17 21:09 Dose: 50 mg Non-Formulary Medication (Darunavir/Cobicistat [Prezcobix 800 Mg-150 Mg Tablet] ) 1 each PO DAILY@1800 [facility] Last Admin: 05/25/17 17:24 Dose: 1 each Oxycodone HCl (Roxicodone -) 5 mg PO Q6H PRN PRN Reason: PAIN LEVEL 6-10 Last Admin: 05/25/17 21:09 Dose: 5 mg - Objective Vital Signs: Vital Signs Temperature 97.8 F 05/26/17 10:05 Pulse Rate 51 L 05/26/17 10:05 Respiratory Rate 20 05/26/17 10:05 Blood Pressure 111/55 05/26/17 10:05 O2 Sat by Pulse Oximetry (%) 98 05/25/17 21:00 Vital Signs Period Temp Pulse Resp BP Sys/Meza Pulse Ox Last 24 Hr 97.5 F-99 F 51-68 18-20 111-133/55-99 98-100 Constitutional: Yes: Well Nourished, No Distress, Calm Eyes: Yes: Conjunctiva Clear, EOM Intact HENT: Yes: Atraumatic, Normocephalic Neck: Yes: Supple, Trachea Midline Cardiovascular: Yes: Regular Rate and Rhythm, S1, S2. No: Murmur Respiratory: Yes: Regular, CTA Bilaterally Gastrointestinal: Yes: Normal Bowel Sounds, Soft ...Rectal Exam: Yes: Deferred Genitourinary: No: CVA Tenderness - Left, CVA Tenderness - Right Edema: No Peripheral Pulses WNL: Yes Peripheral Pulses: Left Radial: 2+, Right Radial: 2+ Wound/Incision: Yes: Reddened, Unapproximated (Wound Measurement: [id number] clean base soft tissue Dressing instructions: 1/4" iodofor packing, 4X4 gauze, kerlex and tape). No: Draining, Bleeding Neurological: Yes: Alert, Oriented Psychiatric: Yes: Alert, Oriented Labs: CBC, BMP 05/24/17 07:00 05/24/17 07:00 Problem List - Problems (1) Thrombophlebitis arm Assessment/Plan: 67 yo RHD male with HIV has and infected thrombophlebitis dorsum of left distal forearm at the site of an IV placed during recent hospitalization POD#1 s/p Incision and drainage of left forearm abscess IV antibiotics per ID f/u cultures Local wound care daily Wound Measurement: [id number] clean base soft tissue Dressing instructions: 1/4" iodofor packing, 4X4 gauze, kerlex and tape left arm elevation Code(s): I80.8 - PHLEBITIS AND THROMBOPHLEBITIS OF OTHER SITES (2) CAD (coronary artery disease) Code(s): I25.10 - ATHSCL HEART DISEASE OF [place] CORONARY ARTERY W/O ANG PCTRS (3) AIDS Code(s): B20 - HUMAN IMMUNODEFICIENCY VIRUS [HIV] DISEASE (4) Hyperlipidemia Code(s): E78.5 - HYPERLIPIDEMIA, UNSPECIFIED (5) Anemia Code(s): D64.9 - ANEMIA, UNSPECIFIED (6) HIV (human immunodeficiency virus infection) Code(s): Z21 - ASYMPTOMATIC HUMAN IMMUNODEFICIENCY VIRUS INFECTION STATUS (7) HTN (hypertension) Code(s): I10 - ESSENTIAL (PRIMARY) HYPERTENSION
--- NOTE | 2017-05-26 11:43 | PN ---
Progress Note, Physician - Current Medication List Current Medications: Active Medications Acetaminophen (Tylenol -) 650 mg PO Q6H PRN PRN Reason: FEVER Atorvastatin Calcium (Lipitor -) 20 mg PO HS [facility] Last Admin: 05/25/17 21:09 Dose: 20 mg Bupropion HCl (Wellbutrin Xl -) 150 mg PO AM [facility] Last Admin: 05/26/17 06:04 Dose: 150 mg Clonazepam (Klonopin -) 0.5 mg PO AM PRN PRN Reason: ANXIETY Cyanocobalamin (Vitamin B12 -) 5,000 mcg PO DAILY [facility] Last Admin: 05/26/17 10:16 Dose: 5,000 mcg Ferrous Sulfate (Feosol -) 325 mg PO 0800,1730 [facility] Last Admin: 05/26/17 08:54 Dose: 325 mg Vancomycin HCl 1,500 mg/ (Dextrose) 500 mls @ 250 mls/hr IVPB BID@0200,1400 [facility] PRN Reason: Protocol Last Admin: 05/26/17 01:20 Dose: 250 mls/hr Ibuprofen (Motrin -) 600 mg PO Q6H PRN PRN Reason: PAIN LEVEL 1-5 Metoprolol Succinate (Toprol Xl -) 50 mg PO [facility] Last Admin: 05/25/17 21:09 Dose: 50 mg Non-Formulary Medication (Darunavir/Cobicistat [Prezcobix 800 Mg-150 Mg Tablet] ) 1 each PO DAILY@1800 [facility] Last Admin: 05/25/17 17:24 Dose: 1 each Oxycodone HCl (Roxicodone -) 5 mg PO Q6H PRN PRN Reason: PAIN LEVEL 6-10 Last Admin: 05/25/17 21:09 Dose: 5 mg - Objective Vital Signs: Vital Signs Temperature 97.8 F 05/26/17 10:05 Pulse Rate 51 L 05/26/17 10:05 Respiratory Rate 20 05/26/17 10:05 Blood Pressure 111/55 05/26/17 10:05 O2 Sat by Pulse Oximetry (%) 98 05/25/17 21:00 Cardiovascular: Yes: Regular Rate and Rhythm Respiratory: Yes: Regular, CTA Bilaterally Gastrointestinal: Yes: Normal Bowel Sounds, Soft Wound/Incision: Yes: Dressing Dry and Intact Labs: CBC, BMP 05/24/17 07:00 05/24/17 07:00 Assessment/Plan - Problems (1) Cellulitis Assessment/Plan: vancomycin ID eval Code(s): L03.90 - CELLULITIS, UNSPECIFIED (2) AIDS Assessment/Plan: patient takes HIV meds at night Code(s): B20 - HUMAN IMMUNODEFICIENCY VIRUS [HIV] DISEASE (3) CAD (coronary artery disease) Assessment/Plan: atorvastatin and metoprolol Code(s): I25.10 - ATHSCL HEART DISEASE OF [place] CORONARY ARTERY W/O ANG PCTRS (4) Anemia Assessment/Plan: ferrous sulfate check b12 level and iron panel Code(s): D64.9 - ANEMIA, UNSPECIFIED (5) Abscess Assessment/Plan: s/p id abx
--- NOTE | 2017-05-26 12:55 | PN ---
Progress Note (short form) - Note Progress Note: feels well s/p I and D of left forearm 05/25 no fevers Vital Signs Period Temp Pulse Resp BP Sys/Meza Pulse Ox Last 24 Hr 97.5 F-99 F 51-68 18-20 111-126/55-65 94-98 cor-rrr lungs clear abd soft,nt ext arm is wrapped CBC, BMP 05/24/17 07:00 05/24/17 07:00 Microbiology 05/25/17 10:50 Abscess Gram Stain - Final 05/25/17 10:50 Abscess Wound Culture - Preliminary NO GROWTH OBTAINED AFTER 24 HOURS INCUBATION, REINCUBATED. 05/23/17 20:28 Blood - Peripheral Venous Blood Culture - Preliminary NO GROWTH OBTAINED AFTER 48 HOURS, INCUBATION TO CONTINUE FOR 3 DAYS. 05/23/17 20:28 Blood - Peripheral Venous Blood Culture - Preliminary NO GROWTH OBTAINED AFTER 48 HOURS, INCUBATION TO CONTINUE FOR 3 DAYS. crp .6 a/p s/p drainage of abscess- continue vancomycin, check trough f/u cultures aids- continue prezcobix and tivicay history bioprosthetic AVR
--- NOTE | 2017-05-26 13:25 | PN ---
Progress Note (short form) - Note Progress Note: ANESTHESIOLOGY POST-OP CHECK 67M s/p left wrist I&D under sedation POD #1. No acute complaints. Denies pain, N/V, backache, headache. Ambulating, voiding. Vital Signs Temperature 97.8 F 05/26/17 10:05 Pulse Rate 51 L 05/26/17 10:05 Respiratory Rate 20 05/26/17 10:05 Blood Pressure 111/55 05/26/17 10:05 O2 Sat by Pulse Oximetry (%) 94 L 05/26/17 10:15 Active Medications Acetaminophen (Tylenol -) 650 mg PO Q6H PRN PRN Reason: FEVER Atorvastatin Calcium (Lipitor -) 20 mg PO HS [facility] Last Admin: 05/25/17 21:09 Dose: 20 mg Bupropion HCl (Wellbutrin Xl -) 150 mg PO AM [facility] Last Admin: 05/26/17 06:04 Dose: 150 mg Clonazepam (Klonopin -) 0.5 mg PO AM PRN PRN Reason: ANXIETY Cyanocobalamin (Vitamin B12 -) 5,000 mcg PO DAILY [facility] Last Admin: 05/26/17 10:16 Dose: 5,000 mcg Ferrous Sulfate (Feosol -) 325 mg PO 0800,1730 [facility] Last Admin: 05/26/17 08:54 Dose: 325 mg Vancomycin HCl 1,500 mg/ (Dextrose) 500 mls @ 250 mls/hr IVPB BID@0200,1400 [facility] PRN Reason: Protocol Last Admin: 05/26/17 01:20 Dose: 250 mls/hr Ibuprofen (Motrin -) 600 mg PO Q6H PRN PRN Reason: PAIN LEVEL 1-5 Metoprolol Succinate (Toprol Xl -) 50 mg PO [facility] Last Admin: 05/25/17 21:09 Dose: 50 mg Non-Formulary Medication (Darunavir/Cobicistat [Prezcobix 800 Mg-150 Mg Tablet] ) 1 each PO DAILY@1800 [facility] Last Admin: 05/25/17 17:24 Dose: 1 each Oxycodone HCl (Roxicodone -) 5 mg PO Q6H PRN PRN Reason: PAIN LEVEL 6-10 Last Admin: 05/25/17 21:09 Dose: 5 mg Gen: Awake, alert. No apparent anesthesia complications. Pain controlled. Continue management as per primary team.
[2017-05-26 14:07] LABS: SERUM IRON SATURATION 10 % (15-55); TOTAL IRON BINDING CAPACITY 373 ug/dL (250-450); UIBC 337 ug/dL (111-343)
[2017-05-26] MEDS ORDERED: PT OWN MED DRAWER 7, Y5N ONE ×2 (14:45→18:11)
[2017-05-26] MEDS: PATIENT'S OWN MEDICATION (NON-FORMULARY) (Darunavir/Cobicistat [Prezcobix 800 Mg-150 Mg Ta PO SCH (18:07)
[2017-05-26] MEDS: DOLUTEGRAVIR SODIUM 50 MG TABLET PO SCH (19:53)
[2017-05-26] MEDS: ATORVASTATIN CA 20 MG TABLET (FP) PO SCH (21:30)
[2017-05-27] MEDS: VANCOMYCIN 1,500 MG in DEXTROSE 5%-WATER - 500 ML IVPB SCH ×2 (02:18→14:19)
[2017-05-27] MEDS: FERROUS SO4 325 MG TABLET (FP) PO SCH ×2 (08:18→17:32)
--- NOTE | 2017-05-27 10:14 | PN ---
Progress Note, Physician Chief Complaint: left forearm abscess History of Present Illness: 67 yo male PMH HIV/AIDs, GIB, Anemia presents to the ED with pain, swelling, redness to his Left forearm with tracking x 2 days. Patient reports noting swelling and redness when his IV site was removed during discharge. no acute events overnight - Current Medication List Current Medications: Active Medications Acetaminophen (Tylenol -) 650 mg PO Q6H PRN PRN Reason: FEVER Atorvastatin Calcium (Lipitor -) 20 mg PO [facility] Last Admin: 05/26/17 21:30 Dose: 20 mg Bupropion HCl (Wellbutrin Xl -) 150 mg PO AM [facility] Last Admin: 05/27/17 06:05 Dose: 150 mg Clonazepam (Klonopin -) 0.5 mg PO AM PRN PRN Reason: ANXIETY Cyanocobalamin (Vitamin B12 -) 5,000 mcg PO DAILY [facility] Last Admin: 05/26/17 10:16 Dose: 5,000 mcg Ferrous Sulfate (Feosol -) 325 mg PO 0800,1730 [facility] Last Admin: 05/27/17 08:18 Dose: 325 mg Vancomycin HCl 1,500 mg/ (Dextrose) 500 mls @ 250 mls/hr IVPB BID@0200,1400 [facility] PRN Reason: Protocol Last Admin: 05/27/17 02:18 Dose: 250 mls/hr Ibuprofen (Motrin -) 600 mg PO Q6H PRN PRN Reason: PAIN LEVEL 1-5 Metoprolol Succinate (Toprol Xl -) 50 mg PO [facility] Last Admin: 05/26/17 21:30 Dose: 50 mg Non-Formulary Medication (Darunavir/Cobicistat [Prezcobix 800 Mg-150 Mg Tablet] ) 1 each PO DAILY@1800 [facility] Last Admin: 05/26/17 18:07 Dose: 1 each Oxycodone HCl (Roxicodone -) 5 mg PO Q6H PRN PRN Reason: PAIN LEVEL 6-10 Last Admin: 05/25/17 21:09 Dose: 5 mg - Objective Vital Signs: Vital Signs Temperature 98.4 F 05/27/17 08:57 Pulse Rate 52 L 05/27/17 08:57 Respiratory Rate 20 05/27/17 08:57 Blood Pressure 122/57 05/27/17 08:57 O2 Sat by Pulse Oximetry (%) 94 L 05/26/17 21:00 Constitutional: Yes: No Distress, Calm Eyes: Yes: Conjunctiva Clear, EOM Intact HENT: Yes: Atraumatic, Normocephalic Neck: Yes: Supple, Trachea Midline Cardiovascular: Yes: Regular Rate and Rhythm, S1, S2. No: Murmur Respiratory: Yes: Regular, CTA Bilaterally Gastrointestinal: Yes: Normal Bowel Sounds, Soft. No: Tenderness ...Rectal Exam: Yes: Deferred Genitourinary: No: CVA Tenderness - Left, CVA Tenderness - Right Extremities: No: Cool, Cyanosis Edema: No Peripheral Pulses WNL: Yes Wound/Incision: Yes: Unapproximated (left distal dorsal forearm incison. Very clean will cinch the nylon closure.). No: Draining, Reddened, Bleeding Neurological: Yes: Alert, Oriented Psychiatric: Yes: Alert, Oriented Labs: CBC, BMP 05/24/17 07:00 05/24/17 07:00 Microbiology 05/23/17 20:28 Blood - Peripheral Venous Blood Culture - Preliminary NO GROWTH OBTAINED AFTER 72 HOURS, INCUBATION TO CONTINUE FOR 2 DAYS. 05/23/17 20:28 Blood - Peripheral Venous Blood Culture - Preliminary NO GROWTH OBTAINED AFTER 72 HOURS, INCUBATION TO CONTINUE FOR 2 DAYS. 05/25/17 10:50 Abscess Gram Stain - Final 05/25/17 10:50 Abscess Wound Culture - Preliminary NO GROWTH OBTAINED AFTER 24 HOURS INCUBATION, REINCUBATED. Problem List - Problems (1) Thrombophlebitis arm Assessment/Plan: 67 yo RHD male with HIV has and infected thrombophlebitis dorsum of left distal forearm at the site of an IV placed during recent hospitalization POD#2 s/p Incision and drainage of left forearm abscess. NO growth from abcess culture. Will cinch close the delayed primary closure. IV antibiotics per ID f/u cultures Local wound care daily Wound Measurement: 0wxQ5peN2.5cm clean base soft tissue Dressing instructions: 1/4" iodofor packing, 4X4 gauze, kerlex and tape left arm elevation Code(s): I80.8 - PHLEBITIS AND THROMBOPHLEBITIS OF OTHER SITES (2) CAD (coronary artery disease) Code(s): I25.10 - ATHSCL HEART DISEASE OF [place] CORONARY ARTERY W/O ANG PCTRS (3) AIDS Code(s): B20 - HUMAN IMMUNODEFICIENCY VIRUS [HIV] DISEASE (4) Hyperlipidemia Code(s): E78.5 - HYPERLIPIDEMIA, UNSPECIFIED (5) Anemia Code(s): D64.9 - ANEMIA, UNSPECIFIED (6) HIV (human immunodeficiency virus infection) Code(s): Z21 - ASYMPTOMATIC HUMAN IMMUNODEFICIENCY VIRUS INFECTION STATUS (7) HTN (hypertension) Code(s): I10 - ESSENTIAL (PRIMARY) HYPERTENSION
[2017-05-27] MEDS ORDERED: LIDOCAINE HCL 1%, 10 MG/ML (50 mL VIAL) SQ ONE (10:59)
[2017-05-27] MEDS ORDERED: LIDOCAINE HCL 1%, 10 MG/ML (20ML VIAL) ONE (11:03)
[2017-05-27] MEDS ORDERED: IRON SUCROSE INJECTION 100 MG in SODIUM CHLORIDE 95 ML IVPB ONE (11:54)
--- NOTE | 2017-05-27 11:55 | PN ---
Progress Note, Physician Chief Complaint: s/p InD of left forearm abscess - Current Medication List Current Medications: Active Medications Acetaminophen (Tylenol -) 650 mg PO Q6H PRN PRN Reason: FEVER Atorvastatin Calcium (Lipitor -) 20 mg PO [facility] Last Admin: 05/26/17 21:30 Dose: 20 mg Bupropion HCl (Wellbutrin Xl -) 150 mg PO AM [facility] Last Admin: 05/27/17 06:05 Dose: 150 mg Clonazepam (Klonopin -) 0.5 mg PO AM PRN PRN Reason: ANXIETY Cyanocobalamin (Vitamin B12 -) 5,000 mcg PO DAILY [facility] Last Admin: 05/26/17 10:16 Dose: 5,000 mcg Ferrous Sulfate (Feosol -) 325 mg PO 0800,1730 [facility] Last Admin: 05/27/17 08:18 Dose: 325 mg Vancomycin HCl 1,500 mg/ (Dextrose) 500 mls @ 250 mls/hr IVPB BID@0200,1400 [facility] PRN Reason: Protocol Last Admin: 05/27/17 02:18 Dose: 250 mls/hr Ibuprofen (Motrin -) 600 mg PO Q6H PRN PRN Reason: PAIN LEVEL 1-5 Metoprolol Succinate (Toprol Xl -) 50 mg PO [facility] Last Admin: 05/26/17 21:30 Dose: 50 mg Non-Formulary Medication (Darunavir/Cobicistat [Prezcobix 800 Mg-150 Mg Tablet] ) 1 each PO DAILY@1800 [facility] Last Admin: 05/26/17 18:07 Dose: 1 each Oxycodone HCl (Roxicodone -) 5 mg PO Q6H PRN PRN Reason: PAIN LEVEL 6-10 Last Admin: 05/25/17 21:09 Dose: 5 mg - Objective Vital Signs: Vital Signs Temperature 98.4 F 05/27/17 08:57 Pulse Rate 52 L 05/27/17 08:57 Respiratory Rate 20 05/27/17 08:57 Blood Pressure 122/57 05/27/17 08:57 O2 Sat by Pulse Oximetry (%) 94 L 05/26/17 21:00 Constitutional: Yes: Calm Cardiovascular: Yes: Regular Rate and Rhythm, S1, S2 Respiratory: Yes: CTA Bilaterally Gastrointestinal: Yes: Normal Bowel Sounds, Soft Extremities: Yes: Other (left forarm dressing removed stitiches seen) Edema: No Neurological: Yes: Alert, Oriented Labs: CBC, BMP 05/24/17 07:00 05/24/17 07:00 Problem List - Problems (1) Cellulitis Assessment/Plan: vancomycin s/p Incision and drainage Code(s): L03.90 - CELLULITIS, UNSPECIFIED (2) AIDS Assessment/Plan: patient takes HIV meds at night meds per ID Code(s): B20 - HUMAN IMMUNODEFICIENCY VIRUS [HIV] DISEASE (3) CAD (coronary artery disease) Assessment/Plan: atorvastatin and metoprolol Code(s): I25.10 - ATHSCL HEART DISEASE OF [place] CORONARY ARTERY W/O ANG PCTRS (4) Anemia Assessment/Plan: ferrous sulfate check b12 level and iron panel- panel noted low iron will give venofer dose Code(s): D64.9 - ANEMIA, UNSPECIFIED
[2017-05-27] MEDS: CYANOCOBALAMIN 1,000 MCG TABLET (FP) PO SCH (11:59)
[2017-05-27] MEDS ORDERED: PT OWN MED DRAWER 7, Y5N ONE (13:26)
--- NOTE | 2017-05-27 14:42 | PN ---
Progress Note, Physician History of Present Illness: Awake, alert No c/o forearm pain No c/o fever/ chills Blood, wound c/s no growth - Current Medication List Current Medications: Active Medications Acetaminophen (Tylenol -) 650 mg PO Q6H PRN PRN Reason: FEVER Atorvastatin Calcium (Lipitor -) 20 mg PO HS [facility] Last Admin: 05/26/17 21:30 Dose: 20 mg Bupropion HCl (Wellbutrin Xl -) 150 mg PO AM [facility] Last Admin: 05/27/17 06:05 Dose: 150 mg Clonazepam (Klonopin -) 0.5 mg PO AM PRN PRN Reason: ANXIETY Ferrous Sulfate (Feosol -) 325 mg PO 0800,1730 [facility] Last Admin: 05/27/17 08:18 Dose: 325 mg Vancomycin HCl 1,500 mg/ (Dextrose) 500 mls @ 250 mls/hr IVPB BID@0200,1400 [facility] PRN Reason: Protocol Last Admin: 05/27/17 14:19 Dose: 250 mls/hr Ibuprofen (Motrin -) 600 mg PO Q6H PRN PRN Reason: PAIN LEVEL 1-5 Metoprolol Succinate (Toprol Xl -) 50 mg PO [facility] Last Admin: 05/26/17 21:30 Dose: 50 mg Non-Formulary Medication (Darunavir/Cobicistat [Prezcobix 800 Mg-150 Mg Tablet] ) 1 each PO DAILY@1800 [facility] Last Admin: 05/26/17 18:07 Dose: 1 each Oxycodone HCl (Roxicodone -) 5 mg PO Q6H PRN PRN Reason: PAIN LEVEL 6-10 Last Admin: 05/25/17 21:09 Dose: 5 mg - Objective Vital Signs: Vital Signs Temperature 98.4 F 05/27/17 08:57 Pulse Rate 52 L 05/27/17 08:57 Respiratory Rate 20 05/27/17 08:57 Blood Pressure 122/57 05/27/17 08:57 O2 Sat by Pulse Oximetry (%) 94 L 05/26/17 21:00 Constitutional: Yes: No Distress Eyes: Yes: Conjunctiva Clear Cardiovascular: Yes: Regular Rate and Rhythm, S1, S2 Respiratory: Yes: CTA Bilaterally Gastrointestinal: Yes: Normal Bowel Sounds, Soft. No: Tenderness Extremities: Yes: Other (L forearm wound with scant serous drainage, erythematous margins) Labs: CBC, BMP 05/24/17 07:00 05/24/17 07:00 Assessment/Plan S/P I&D L forearm abscess Hx AVR HIV/ AIDS Continue vancomycin, local wound care ART
[2017-05-27] MEDS: PATIENT'S OWN MEDICATION (NON-FORMULARY) (Darunavir/Cobicistat [Prezcobix 800 Mg-150 Mg Ta PO SCH (17:33)
[2017-05-27] MEDS: DOLUTEGRAVIR SODIUM 50 MG TABLET PO SCH (20:11)
[2017-05-27] MEDS: ATORVASTATIN CA 20 MG TABLET (FP) PO SCH (21:14)
[2017-05-28] MEDS: VANCOMYCIN 1,500 MG in DEXTROSE 5%-WATER - 500 ML IVPB SCH ×2 (01:20→13:57)
[2017-05-28] MEDS: FERROUS SO4 325 MG TABLET (FP) PO SCH ×2 (08:15→18:15)
--- NOTE | 2017-05-28 09:55 | PN ---
Progress Note, Physician Chief Complaint: left forearm abscess History of Present Illness: 67 yo male PMH HIV/AIDs, GIB, Anemia presents to the ED with pain, swelling, redness to his Left forearm with tracking x 2 days. Patient reports noting swelling and redness when his IV site was removed during discharge. no acute events overnight - Current Medication List Current Medications: Active Medications Acetaminophen (Tylenol -) 650 mg PO Q6H PRN PRN Reason: FEVER Atorvastatin Calcium (Lipitor -) 20 mg PO HS [facility] Last Admin: 05/27/17 21:14 Dose: 20 mg Bupropion HCl (Wellbutrin Xl -) 150 mg PO AM [facility] Last Admin: 05/28/17 06:19 Dose: 150 mg Clonazepam (Klonopin -) 0.5 mg PO AM PRN PRN Reason: ANXIETY Ferrous Sulfate (Feosol -) 325 mg PO 0800,1730 [facility] Last Admin: 05/28/17 08:15 Dose: 325 mg Vancomycin HCl 1,500 mg/ (Dextrose) 500 mls @ 250 mls/hr IVPB BID@0200,1400 [facility] PRN Reason: Protocol Last Admin: 05/28/17 01:20 Dose: 250 mls/hr Ibuprofen (Motrin -) 600 mg PO Q6H PRN PRN Reason: PAIN LEVEL 1-5 Metoprolol Succinate (Toprol Xl -) 50 mg PO [facility] Last Admin: 05/27/17 21:44 Dose: Not Given Non-Formulary Medication (Darunavir/Cobicistat [Prezcobix 800 Mg-150 Mg Tablet] ) 1 each PO DAILY@1800 [facility] Last Admin: 05/27/17 17:33 Dose: 1 each Oxycodone HCl (Roxicodone -) 5 mg PO Q6H PRN PRN Reason: PAIN LEVEL 6-10 Last Admin: 05/25/17 21:09 Dose: 5 mg - Objective Vital Signs: Vital Signs Temperature 97.7 F 05/28/17 06:10 Pulse Rate 57 L 05/28/17 06:10 Respiratory Rate 20 05/28/17 06:10 Blood Pressure 127/67 05/28/17 06:10 O2 Sat by Pulse Oximetry (%) 99 05/27/17 09:00 Vital Signs Period Temp Pulse Resp BP Sys/Meza Pulse Ox Last 24 Hr 96.8 F-98.7 F 48-57 18-22 115-133/52-67 Constitutional: Yes: No Distress, Calm Eyes: Yes: Conjunctiva Clear, EOM Intact HENT: Yes: Atraumatic, Normocephalic Neck: Yes: Supple, Trachea Midline Cardiovascular: Yes: Regular Rate and Rhythm, S1, S2 Genitourinary: No: CVA Tenderness - Left, CVA Tenderness - Right Extremities: No: Cool, Cyanosis Wound/Incision: Yes: Sutures Intact, Unapproximated Neurological: Yes: Alert, Oriented Psychiatric: Yes: Alert, Oriented Labs: CBC, BMP 05/24/17 07:00 05/24/17 07:00 Problem List - Problems (1) Thrombophlebitis arm Assessment/Plan: 67 yo RHD male with HIV has and infected thrombophlebitis dorsum of left distal forearm at the site of an IV placed during recent hospitalization POD#3 s/p Incision and drainage of left forearm abscess. NO growth from abcess culture. Will cinch close the delayed primary closure. IV antibiotics per ID f/u cultures Local wound care daily Wound Measurement: 4cmX0.1cm clean base soft tissue Dressing instructions: large bandaid and bacitracin ointment Code(s): I80.8 - PHLEBITIS AND THROMBOPHLEBITIS OF OTHER SITES (2) CAD (coronary artery disease) Code(s): I25.10 - ATHSCL HEART DISEASE OF [place] CORONARY ARTERY W/O ANG PCTRS (3) AIDS Code(s): B20 - HUMAN IMMUNODEFICIENCY VIRUS [HIV] DISEASE (4) Hyperlipidemia Code(s): E78.5 - HYPERLIPIDEMIA, UNSPECIFIED (5) Anemia Code(s): D64.9 - ANEMIA, UNSPECIFIED (6) HIV (human immunodeficiency virus infection) Code(s): Z21 - ASYMPTOMATIC HUMAN IMMUNODEFICIENCY VIRUS INFECTION STATUS (7) HTN (hypertension) Code(s): I10 - ESSENTIAL (PRIMARY) HYPERTENSION
--- NOTE | 2017-05-28 10:22 | PN ---
Progress Note, Physician Chief Complaint: patient sitting in bed no distress no fever - Current Medication List Current Medications: Active Medications Acetaminophen (Tylenol -) 650 mg PO Q6H PRN PRN Reason: FEVER Atorvastatin Calcium (Lipitor -) 20 mg PO [facility] Last Admin: 05/27/17 21:14 Dose: 20 mg Bupropion HCl (Wellbutrin Xl -) 150 mg PO AM [facility] Last Admin: 05/28/17 06:19 Dose: 150 mg Clonazepam (Klonopin -) 0.5 mg PO AM PRN PRN Reason: ANXIETY Ferrous Sulfate (Feosol -) 325 mg PO 0800,1730 [facility] Last Admin: 05/28/17 08:15 Dose: 325 mg Vancomycin HCl 1,500 mg/ (Dextrose) 500 mls @ 250 mls/hr IVPB BID@0200,1400 [facility] PRN Reason: Protocol Last Admin: 05/28/17 01:20 Dose: 250 mls/hr Ibuprofen (Motrin -) 600 mg PO Q6H PRN PRN Reason: PAIN LEVEL 1-5 Metoprolol Succinate (Toprol Xl -) 50 mg PO [facility] Last Admin: 05/27/17 21:44 Dose: Not Given Non-Formulary Medication (Darunavir/Cobicistat [Prezcobix 800 Mg-150 Mg Tablet] ) 1 each PO DAILY@1800 [facility] Last Admin: 05/27/17 17:33 Dose: 1 each Oxycodone HCl (Roxicodone -) 5 mg PO Q6H PRN PRN Reason: PAIN LEVEL 6-10 Last Admin: 05/25/17 21:09 Dose: 5 mg - Objective Vital Signs: Vital Signs Temperature 97.6 F 05/28/17 10:00 Pulse Rate 72 05/28/17 10:00 Respiratory Rate 20 05/28/17 10:00 Blood Pressure 115/60 05/28/17 10:00 O2 Sat by Pulse Oximetry (%) 99 05/27/17 09:00 Constitutional: Yes: Calm Cardiovascular: Yes: Regular Rate and Rhythm, S1, S2 Respiratory: Yes: CTA Bilaterally Gastrointestinal: Yes: Normal Bowel Sounds, Soft Extremities: Yes: Other (left forarem arm s/p I/D dressing renoved base clean pink sutures seen) Edema: No Neurological: Yes: Alert, Oriented Labs: CBC, BMP 05/24/17 07:00 05/24/17 07:00 Problem List - Problems (1) Cellulitis Assessment/Plan: vancomycin- duration of abx per ID s/p Incision and drainage idoform packing gauze kerlex and tape elevate the arm Code(s): L03.90 - CELLULITIS, UNSPECIFIED (2) AIDS Assessment/Plan: patient takes HIV meds at night meds per ID Code(s): B20 - HUMAN IMMUNODEFICIENCY VIRUS [HIV] DISEASE (3) CAD (coronary artery disease) Assessment/Plan: atorvastatin and metoprolol Code(s): I25.10 - ATHSCL HEART DISEASE OF [place] CORONARY ARTERY W/O ANG PCTRS (4) Anemia Assessment/Plan: ferrous sulfate check b12 level and iron panel- panel noted low iron will give another venofer dose today Code(s): D64.9 - ANEMIA, UNSPECIFIED
[2017-05-28] MEDS ORDERED: BACITRACIN 15 GM TUBE TOPICAL OINTMENT TP SCH (10:30)
[2017-05-28] MEDS ORDERED: IRON SUCROSE INJECTION 100 MG in SODIUM CHLORIDE 95 ML IVPB ONE (11:00)
[2017-05-28 15:16] VITALS: BP 127/62; PULSE 64; TEMP 97.1
--- NOTE | 2017-05-28 16:06 | PN ---
Progress Note, Physician History of Present Illness: Awake, alert No c/o forearm pain No c/o fever/ chills Blood, wound c/s no growth - Current Medication List Current Medications: Active Medications Acetaminophen (Tylenol -) 650 mg PO Q6H PRN PRN Reason: FEVER Atorvastatin Calcium (Lipitor -) 20 mg PO HS [facility] Last Admin: 05/27/17 21:14 Dose: 20 mg Bacitracin (Bacitracin -) 1 applic TP DAILY [facility] Last Admin: 05/28/17 11:17 Dose: 1 applic Bupropion HCl (Wellbutrin Xl -) 150 mg PO AM [facility] Last Admin: 05/28/17 06:19 Dose: 150 mg Clonazepam (Klonopin -) 0.5 mg PO AM PRN PRN Reason: ANXIETY Ferrous Sulfate (Feosol -) 325 mg PO 0800,1730 [facility] Last Admin: 05/28/17 08:15 Dose: 325 mg Ibuprofen (Motrin -) 600 mg PO Q6H PRN PRN Reason: PAIN LEVEL 1-5 Metoprolol Succinate (Toprol Xl -) 50 mg PO [facility] Last Admin: 05/27/17 21:44 Dose: Not Given Non-Formulary Medication (Darunavir/Cobicistat [Prezcobix 800 Mg-150 Mg Tablet] ) 1 each PO DAILY@1800 [facility] Last Admin: 05/27/17 17:33 Dose: 1 each Oxycodone HCl (Roxicodone -) 5 mg PO Q6H PRN PRN Reason: PAIN LEVEL 6-10 Last Admin: 05/25/17 21:09 Dose: 5 mg Trimethoprim/Sulfamethoxazole (Bactrim Ds -) 1 each PO BID [facility] - Objective Vital Signs: Vital Signs Temperature 97.1 F L 05/28/17 14:13 Pulse Rate 64 05/28/17 14:13 Respiratory Rate 22 05/28/17 14:13 Blood Pressure 127/62 05/28/17 14:13 O2 Sat by Pulse Oximetry (%) 99 05/27/17 09:00 Cardiovascular: Yes: Regular Rate and Rhythm, S1, S2 Respiratory: Yes: CTA Bilaterally Gastrointestinal: Yes: Normal Bowel Sounds, Soft Extremities: Yes: Other (L forearm wound minimal erythema. No drainage.) Labs: CBC, BMP 05/24/17 07:00 03/09/18 07:00 Assessment/Plan S/P I&D L forearm abscess Hx AVR HIV/ AIDS Discontinue vancomycin Substitute Bactrim DS po bid x 7d local wound care ART
--- NOTE | 2017-05-28 17:57 | DS ---
Physical Examination Vital Signs: Vital Signs Temperature 97.1 F L 05/28/17 14:13 Pulse Rate 64 05/28/17 14:13 Respiratory Rate 22 05/28/17 14:13 Blood Pressure 127/62 05/28/17 14:13 O2 Sat by Pulse Oximetry (%) 99 05/27/17 09:00 Constitutional: Yes: Calm Neck: Yes: Trachea Midline Cardiovascular: Yes: Regular Rate and Rhythm, S1, S2 Respiratory: Yes: CTA Bilaterally Gastrointestinal: Yes: Normal Bowel Sounds, Soft Extremities: Yes: Other (left forearm wound) Edema: No Neurological: Yes: Alert, Oriented Labs: CBC, BMP 05/24/17 07:00 05/24/17 07:00 Discharge Summary Reason For Visit: CELLULITIS Current Active Problems Anemia (Acute) CAD (coronary artery disease) (Acute) Cellulitis (Acute) Thrombophlebitis arm (Acute) Hospital Course: - Primary Care Physician PCP: Kizzy Cobos - Admission Chief Complaint: Pain, Swelling, Redness to L- forearm History of Present Illness: This is a 67 y/o man who is from home. Who presents to the ED with pain, swelling, redness to his L- forearm with tracking x 2 days. Patient reports noting swelling and redness when his IV site was removed during discharge, states he was told by the nurse to placed ice on it and take Advil- no improvement. Patient was admitted 05/17-05/21 for Severe Anemia. Patient denies numbness or tingling. Patient denies fever, chills, cough, SOB, CP, AP, N/V/D, constipation, dysuria.on History Source: Patient Limitations to Obtaining History: No Limitations - Past Medical History Cardiovascular: Yes: CAD, CHF, HTN, Hyperlipdemia, Other (aortic vavle replacement) Infectious Disease: Yes: HIV patient had incision and drainage on iv abx cultures sent and now on po abx Condition: Guarded - Instructions Diet, Activity, Other Instructions: Postoperative instructions: You had an incision and drainage of left forearm abscess on 05/25/[address] Luiz Brewster of [facility]. Activity: Resume your usual activities gradually, but no heavy exertion or lifting more than 10-15 pounds for 4-6 weeks. Daily wound care with bandaid and bacitracin ointment. You may shower daily starting then, just pat the incision areas dry. Sutures will need to be recovered with any dressings, unless you have been told otherwise. Eat lightly at first, but advance to your usual diet as tolerated. Pain: For pain, you may use and alternate Tylenol (acetaminophen) and/or ibuprofen every 6 hours each as needed; this means that you can take one OR the other at 3-hour intervals. If you are prescribed a Tylenol/narcotic combination for severe pain, use it instead of plain Tylenol as needed and switch back when your pain starts decreasing. Do not take more than 4000mg of acetaminophen in a day. Take medications as prescribed or indicated on the labeling. Follow-up: Call Dr. Brewster' office at [phone] to make your postop appointment (Saturday 1-2 weeks after surgery as advised). Clinic is held in the [facility] on the first floor of [facility]. Call the office if you have: * increasing pain not responsive to pain medication * fever of 101F or higher * unusual or increasing bleeding or drainage from wounds * increasing redness or swelling at wound sites Also, see your primary medical doctor within 1-2 weeks. Referrals: Kizzy Cobos MD [Staff Physician] - Disposition: HOME - Home Medications Comprehensive Discharge Medication List: Ambulatory Orders Bupropion HCl [Bupropion HCl Sr] 150 mg PO AM #30 tablet.er 09/20/16 Clonazepam [Klonopin] 0.5 mg PO AM PRN #30 tablet MDD 2 09/21/16 Metoprolol Succinate [Toprol XL -] 1 tab PO HS #30 tab 10/02/16 Atorvastatin Ca [Lipitor] 20 mg PO HS #30 tablet 05/20/17 Darunavir/Cobicistat [Prezcobix 800 mg-150 mg Tablet] 1 each PO DAILY #30 tablet 05/20/17 Dolutegravir Sodium [Tivicay] 50 mg PO DAILY #30 tablet 05/20/17 Ferrous Sulfate 325 mg PO BID #60 tablet MDD 2 05/20/17 Sulfamethoxazole/Trimethoprim [Bactrim DS -] 1 each PO DAILY #30 tablet MDD 1 Cyanocobalamin (Vitamin B-12) [B-12] 5,000 mcg SL DAILY #30 tab.subl 05/21/17 Bacitracin - [Bacitracin Topical Ointment -] 1 applic TP DAILY #1 tube 05/28/17 Sulfamethoxazole/Trimethoprim [Bactrim DS -] 1 each PO BID #14 tablet MDD 2
[2017-05-28] MEDS: PATIENT'S OWN MEDICATION (NON-FORMULARY) (Darunavir/Cobicistat [Prezcobix 800 Mg-150 Mg Ta PO SCH (18:15)
[2017-05-28] MEDS ORDERED: SULFAMETHOXAZOLE/TRIMETHOPRIM 800MG/160MG D.S. TABLET PO SCH (22:00)
== END 2017-05-28 18:36 | disposition home or self-care (01) | DRG 252 ==
LOC: JER 14:24 → JERBED 20:19 → J5S 22:44
PROVIDERS: ADMIT Internal Medicine; ATTEND Family Medicine
PROC: 0J9H0ZX Drainage of Left Lower Arm Subcutaneous Tissue and Fascia, Open Approach, Diagnostic (ICD-10-PCS; 2017-05-25)
PROC: 05BY0ZZ Excision of Upper Vein, Open Approach (ICD-10-PCS; principal; 2017-05-25 08:36)
DX: T80.1XXA Vascular complications following infusion, transfusion and therapeutic injection, initial encounter (principal); B20 Human immunodeficiency virus [HIV] disease; L03.114 Cellulitis of left upper limb; D61.818 Other pancytopenia; L02.414 Cutaneous abscess of left upper limb; I80.8 Phlebitis and thrombophlebitis of other sites; I25.10 Atherosclerotic heart disease of native coronary artery without angina pectoris; F41.8 Other specified anxiety disorders; E78.5 Hyperlipidemia, unspecified; I11.0 Hypertensive heart disease with heart failure; D50.9 Iron deficiency anemia, unspecified; D63.8 Anemia in other chronic diseases classified elsewhere; Z95.2 Presence of prosthetic heart valve; Z95.1 Presence of aortocoronary bypass graft
CPT/HCPCS: 36415; 71046-TC-FY; 76705-TC; 76882; 80048; 80053; 82607; 82728; 82977; 83540; 83550; 85025; 86140; 87040; 87070; 87205; 93005; 93010; 99284-25; G0480; J1756

== ENCOUNTER 2018-08-06 18:00 | Emergency (ER) | payer OTHER ==
[2018-08-06 18:31] VITALS: TEMP 97.7; BMI 33.4
[2018-08-06 19:32] LABS: BASO % 0.9 % (0-2.0); HEMATOCRIT 37.5 % (35.4-49); HEMOGLOBIN 11.2 GM/dL (11.7-16.9); LYMPH % 15.5 % (8-40); MCH 21.4 pg (25.7-33.7); MCHC 29.9 g/dl (32.0-35.9); MEAN CELL VOLUME 71.4 fl (80-96); MONO % 16.6 % (3.8-10.2); PLATELET COUNT 168 K/MM3 (134-434); RBC 5.26 M/mm3 (4.00-5.60); RDW 21.3 % (11.9-15.9)
--- NOTE | 2018-08-06 19:46 | PDOC ---
History of Present Illness - General Chief Complaint: Chest Pain Stated Complaint: CHEST PAIN Time Seen by Provider: 08/06/18 18:46 History Source: Patient Exam Limitations: No Limitations - History of Present Illness Initial Comments: 08/06/18 19:17 68M with PMH of AIDS, CAD s/p CABG, s/p mechanical aortic valve replacement, recurrent GI bleed who presents to the ER from his PCP's office for chest pain and "something on my EKG". The patient states that he has had "months" of chest pain which is intermittent. Due to the complaint of chest pain, they did an EKG at the office and told him to come to the ED. The patient's only active complaint is b/l LE swelling and SOB on exertion. He denies CP, fever, chills, nausea, vomiting, palpitations, lightheadedness. Past History - Past Medical History Allergies/Adverse Reactions: Allergies Allergy/AdvReac Type Severity Reaction Status Date / Time No Known Allergies Allergy Verified 05/23/17 14:30 Home Medications: Ambulatory Orders Metoprolol Succinate [Toprol XL -] 1 tab PO HS #30 tab 10/02/16 Ferrous Sulfate 325 mg PO BID #60 tablet MDD 2 05/20/17 Cyanocobalamin (Vitamin B-12) [B-12] 5,000 mcg SL DAILY #30 tab.subl 05/21/17 Atorvastatin Ca [Lipitor] 20 mg PO HS #30 tablet 03/04/18 Darunavir/Cobicistat [Prezcobix 800 mg-150 mg Tablet] 1 each PO DAILY #30 tablet 06/10/18 Dolutegravir Sodium [Tivicay] 50 mg PO DAILY #30 tablet 06/10/18 Sulfamethoxazole/Trimethoprim [Bactrim Ds Tablet] 1 each PO DAILY #30 tablet Anemia: Yes (for years ) Asthma: No Cancer: No Cardiac Disorders: Yes (bioprosthetic AVR ) CVA: No COPD: No CHF: No (Need clariification) DVT: No Dementia: No Diabetes: No GI Disorders: Yes (tarry stool, + Deuodinitis and one nonbleeding angioectas) Disorders: No HTN: Yes Hypercholesterolemia: No Liver Disease: No Psychiatric Problems: Yes (ANXIETY DEPRESSION) Seizures: No Thyroid Disease: No - Surgical History Abdominal Surgery: No Appendectomy: No Cardiac Surgery: Yes ([facility] Cardothoracic Surgery - Dr. Reese Garcia MD Aortic Sten) Cholecystectomy: No Lung Surgery: No - Immunization History Immunization Up to Date: Yes - Suicide/Smoking/Psychosocial Hx Smoking History: Never smoked Have you smoked in the past 12 months: No If you are a former smoker, when did you quit?: 2009 Information on smoking cessation initiated: No Hx Alcohol Use: No Drug/Substance Use Hx: No Substance Use Type: None Hx Substance Use Treatment: No Review of Systems - Review of Systems Able to Perform ROS?: Yes Comments:: 08/06/18 19:46 GENERAL/CONSTITUTIONAL: No fever or chills. No weakness. HEAD, EYES, EARS, NOSE AND THROAT: No change in vision. No ear pain or discharge. No sore throat. CARDIOVASCULAR: No chest pain, palpitations, or lightheadedness. RESPIRATORY: + for DU. No cough, wheezing, or hemoptysis. GASTROINTESTINAL: No nausea, vomiting, diarrhea, constipation, or abdominal pain. GENITOURINARY: No dysuria, frequency, hematuria, or change in urination. MUSCULOSKELETAL: + for b/l LE swelling. No joint or muscle swelling or pain. No neck or back pain. SKIN: No rash or lesions. NEUROLOGIC: No headache, numbness, tingling, focal weakness, loss of consciousness, or change in strength/sensation. Is the patient limited [place] proficient: No *Physical Exam - Vital Signs Last Vital Signs Temp Pulse Resp BP Pulse Ox 97.7 F 68 18 125/68 95 08/06/18 18:23 08/06/18 18:23 08/06/18 18:23 08/06/18 18:23 08/06/18 18:23 - Physical Exam Comments: 08/06/18 20:17 GENERAL: Well developed, well nourished. Awake and alert. No acute distress. HEENT: Normocephalic, atraumatic. Hearing grossly normal. Moist mucous membranes. PERRLA, EOMI. No conjunctival pallor. Sclera are non-icteric. NECK: Supple. Full ROM. No JVD. CARDIOVASCULAR: Regular rate and rhythm. No murmurs, rubs, or gallops. PULMONARY: No evidence of respiratory distress. Lungs clear to auscultation bilaterally. No wheezing, rales or rhonchi. ABDOMINAL: Soft. Non-tender. Non-distended. No rebound or guarding. GENITOURINARY: No CVA tenderness bilaterally. MUSCULOSKELETAL: Normal range of motion at all joints. No bony deformities or tenderness. EXTREMITIES: No cyanosis. No clubbing. 2+ pitting edema in b/l LE. No calf tenderness or swelling. SKIN: Warm and dry. Normal capillary refill. No rashes. No jaundice. NEUROLOGICAL: Alert, awake, appropriate. Cranial nerves 2-12 intact. Normal speech. Gait is normal without ataxia. PSYCHIATRIC: Cooperative. Good eye contact. Appropriate mood and affect. ED Treatment Course - LABORATORY CBC & Chemistry Diagram: 08/06/18 19:00 08/06/18 19:00 - RADIOLOGY Radiology Studies Ordered: Category Date Time Status CHEST PA & LAT [RAD] Stat Radiology 08/06/18 19:00 Ordered Medical Decision Making - Medical Decision Making 08/06/18 20:18 68M with PMH of AIDS, CAD s/p CABG w/ aortic valve replacement who presents to the ER stating he has had months of chest pain and possible EKG changes per PCP. EKG is unchanged per our records. Pt well appearing. Pt states he's had this swelling "for years". Will obtain 2 troponins and BNP and reassess. 08/06/18 20:30 Pt requests to sign out AMA due to necessity to catch the bus. I have discussed at length the severity of leaving. Pt understands and still would request to leave. AMA forms signed. I have instructed him to f/u with his cottrell blower and PCP. *DC/Admit/Observation/Transfer Diagnosis at time of Disposition: Atypical chest pain - Discharge Dispostion Disposition: AGAINST MEDICAL ADVICE Condition at time of disposition: Fair Decision to Admit order: No - Referrals Referrals: Yu Taylor MD [Primary Care Provider] - - Patient Instructions Printed Discharge Instructions: DI for Atypical Chest Pain Additional Instructions: Your ER visit is not complete until your follow up with your primary care physician and cottrell blower. Please follow up with your primary care physician in 1-2 days. Please return to the ER if you have any signs or symptoms of chest pain, shortness of breath, uncontrollable fever, chills, nausea, vomiting, numbness, tingling, or weakness in any part of your body, changes in vision, or slurred speech. Please take your medications as prescribed. Please return to the ER if symptoms persist, worsen, or new symptoms arise. - Post Discharge Activity
[2018-08-06 20:09] LABS: ALBUMIN 3.7 g/dl (3.4-5.0); ALK PHOS 94 U/L (45-117); ANION GAP 7 MMOL/L (8-16); BILIRUBIN,TOTAL 0.4 mg/dL (0.2-1); BLOOD UREA NITROGEN 10 mg/dL (7-18); CALCIUM 8.8 mg/dL (8.5-10.1); CHLORIDE 104 mmol/L (98-107); CO2 25 mmol/L (21-32); CREATININE 0.9 mg/dL (0.55-1.3); GLUCOSE,RANDOM 89 mg/dL (74-106); LIPASE 71 U/L (73-393); N-TERMINAL BNP 61.9 pg/ml (5-125); POTASSIUM 4.4 mmol/L (3.5-5.1); SGOT/AST 24 U/L (15-37); SGPT/ALT 22 U/L (13-61); SODIUM 137 mmol/L (136-145); TOT PROT 6.8 g/dl (6.4-8.2)
--- NOTE | 2018-08-06 20:11 | PDOC ---
Documentation entered by Nia Rosales SCRIBE, acting as scribe for Joy Han DO. Joy Han DO: This documentation has been prepared by the Connie jiménez Daisy, SCRIBE, under my direction and personally reviewed by me in its entirety. I confirm that the documentation accurately reflects all work, treatment, procedures, and medical decision making performed by me. Attending Attestation - Resident Resident Name: [email or web address] - ED Attending Attestation I have performed the following: I have examined & evaluated the patient, The case was reviewed & discussed with the resident, I agree w/resident's findings & plan - HPI HPI: 08/06/18 19:34 The patient is a 68 YOM with a PMH of HIV/recently diagnosed with AIDS and compliant with treatment, CAD, CABG, and prosthetic aortic valve replacement who presents to the ER for evaluation of chest pain. Patient was seen at his PCP 's office, had an EKG there, and told to come to the ER for further work-up. He reports the chest pain is similar to his intermittent sternum pain s/p CABG. Denies any nausea or diaphoresis. Admits to chronic bilateral lower extremity leg swelling for the past 3 years. Denies any new changes in any of his symptoms. Allergies: NKDA - Physicial Exam PE: 08/06/18 19:46 ADULT PHYSICAL EXAM Constitutional: Awake, alert, oriented. No acute distress. Neck: Supple. Full ROM. No lymphadenopathy. Cardiovascular: (+) anterior chest wall tenderness, over his sternum. Regular rate. Regular rhythm. S1, S2 regular. Distal pulses are 2+ and symmetric. Pulmonary/Chest: No evidence of respiratory distress. Clear to auscultation bilaterally No wheezing, rales or rhonchi. Abdominal: Soft and non-distended. There is no tenderness. No rebound, guarding or rigidity. No organomegaly. No palpable masses. Good bowel sounds. Back: No CVA tenderness. Musculoskeletal: No edema. No cyanosis. No clubbing. Full range of motion in all extremities. No calf tenderness. Skin: Skin is warm and dry. Neurological: Alert and oriented to person, place, and time. Cranial nerves II -XII are grossly intact. Normal speech. Strength is grossly symmetric. No sensory deficits. - Medical Decision Making 08/06/18 20:08 I, Dr. Joy Han, DO, attest that this document has been prepared under my direction and personally reviewed by me in its entirety. I further attest, that it accurately reflects all work, treatment, procedures and medical decision -making performed by me. 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 Walker for august 18 08/06/18 20:49 pt states he cannot stay and needs to catch the bus trop was negative repeat trop at 10p discussed needing to stay for further eval, but pt states he wants to sign out AMA and follow up with his cards resident discussed risks/benefits of leaving vs staying- pt signed ama form Note: The patient insists on leaving the emergency dept and is signing out against medical advice. The patient understands the risks and complications that may result from the refusal of medical care and admission which includes and permanent disability. The patient has the mental capacity of understanding the risks of refusing care and is capable of making an informed decision. The patient was instructed to return to the emergency department should he change his mind regarding medical care or should his condition worsen. The patient signed the Against Medical Advice form. Heart Score/ECG Review - ECG Intrepretation Comment:: 08/06/18 20:10 sinus at 71, lvh, 1st degree av block, t wave inversions I/avl which are unchanged from prior ekg
[2018-08-06 20:18] LABS: INR 1.01 (0.83-1.09); PROTHROMBIN TIME (PATIENT) 11.9 SEC (9.7-13.0)
[2018-08-06 20:24] VITALS: BP 129/63; PULSE 72
[2018-08-06 21:38] LABS: ANISOCYTOSIS 1+
--- NOTE | 2018-08-07 13:14 | EKG ---
Test Reason : Blood Pressure : / mmHG Vent. Rate : 071 BPM Atrial Rate : 071 BPM P-R Int : 230 ms QRS Dur : 090 ms QT Int : 406 ms P-R-T Axes : 049 -26 099 degrees QTc Int : 441 ms SINUS RHYTHM WITH 1ST DEGREE A-V BLOCK MINIMAL VOLTAGE CRITERIA FOR LVH, MAY BE NORMAL VARIANT T WAVE ABNORMALITY, CONSIDER LATERAL ISCHEMIA ABNORMAL ECG WHEN COMPARED WITH ECG OF 31-OCT-2017 12:26, VT INTERVAL HAS INCREASED T WAVE INVERSION LESS EVIDENT IN ANTEROLATERAL LEADS Confirmed by NEERAJ LAGUNAS MD ([id number]) on 08/07/2018 1:14:24 PM Referred By: Confirmed By:NEERAJ LAGUNAS MD
== END 2018-08-06 20:49 | disposition left against medical advice (07) ==
LOC: JER 18:00
DX: R07.9 Chest pain, unspecified (principal); I25.10 Atherosclerotic heart disease of native coronary artery without angina pectoris; I10 Essential (primary) hypertension; Z95.1 Presence of aortocoronary bypass graft; Z95.4 Presence of other heart-valve replacement; F41.8 Other specified anxiety disorders; F32.9 Major depressive disorder, single episode, unspecified; B20 Human immunodeficiency virus [HIV] disease
CPT/HCPCS: 36415; 80053; 82550; 82553; 83690; 83880; 84484; 85025; 85610; 93005; 93010; 99282-25